=== PATIENT | male | born 1950 | race Caucasian/White ===

== ENCOUNTER → 2017-06-12 | Outpatient (CLI) | payer OTHER, MEDICARE | LOC: FIMAGING 17:44 | PROVIDERS: ATTEND Nurse Practitioner ==

== ENCOUNTER 2017-07-20 21:47 | Observation (INO) | payer OTHER, MEDICARE ==
--- NOTE | 2017-07-20 21:51 | EDPHY ---
H & P Source: Patient Exam Limitations: No limitations - Medical/Surgical History Other PMH: Past medical history: Colorectal cancer, hyperlipidemia, gastroesophageal reflux, BPH - Family History Significant Family History: No pertinent family hx Time Seen by Provider: 07/20/17 21:51 HPI/ROS: CHIEF COMPLAINT: Dyspnea, vomiting HISTORY OF PRESENT ILLNESS: The patient has a history of colorectal cancer, stage IIIB by their report, and presents to the ED with present since his chemotherapy on Friday. Additionally, the patient has developed nausea and vomiting. He has been unable to eat or drink significantly over the past several days. There has been no history of fever. The patient did receive Neulasta on Friday. He has had 4 days of hiccups. The patient denies asymmetric calf pain or swelling. He has no history of thromboembolic disease. He is not anticoagulated. The patient reports his dyspnea is moderate in nature. REVIEW OF SYSTEMS: A comprehensive 10 point review of systems is otherwise negative aside from elements mentioned in the history of present illness. (Rafael Zimmer) - Physical Exam Exam: General Appearance: Elderly male, mild tachypnea Eyes: Pupils equal and round no pallor or injection ENT, Mouth: Dry mucous membranes Respiratory: There are no retractions, lungs are clear to auscultation Cardiovascular: Slight tachycardia Gastrointestinal: Mild tenderness to palpation in the left mid quadrant Neurological: A&O, normal motor function, normal sensory exam, normal cranial nerves Skin: Warm and dry, no rashes Musculoskeletal: Neck is supple nontender Extremities: symmetrical, full range of motion (Rafael Zimmer) Constitutional: Initial Vital Signs Temperature (C) 36.3 C 07/20/17 21:51 Heart Rate 113 H 07/20/17 21:51 Respiratory Rate 20 07/20/17 21:51 Blood Pressure 89/74 L 07/20/17 21:51 O2 Sat (%) 96 07/20/17 21:51 O2 Delivery Mode Nasal Cannula O2 (L/minute) 2 Allergies/Adverse Reactions: No Known Allergies Allergy (Unverified 07/20/17 21:49) Home Medications: Medication Instructions Recorded Atorvastatin Calcium 07/20/17 Flomax 07/20/17 Neulasta 07/20/17 Zofran 07/20/17 morphINE IR 07/20/17 Medical Decision Making - Diagnostics EKG Interpretation: EKG: Complete interpretation has been separately recorded in the [email or web address] archive. Summary impression: Sinus rhythm, rate 95 (Rafael Zimmer) Imaging Results: Imaging Impressions Chest X-Ray 07/20/17 22:08 Impression: No evidence for acute cardiopulmonary abnormality. Abdomen CT 07/20/17 22:48 Impression: Minimal free fluid in the abdomen and pelvis. Moderate constipation. No evidence for small bowel obstruction. Results called and discussed with Dr. Robert Wing at 07/20/2017 23:41. Chest/Thorax CTA 07/20/17 22:48 Impression: 1. No evidence of thrombopulmonary embolic disease. 2. Evidence of atherosclerotic disease coronary arteries. 3. Mild apical pleural scarring bilateral. Results called and discussed with Dr. Robert Wing at 07/20/2017 23:38. ED Course/Re-evaluation: The patient presents to the ED with abdominal pain, vomiting and dyspnea. The patient's chest x-ray demonstrates no evidence of acute disease. The patient's EKG demonstrates no evidence of arrhythmia. The patient's proBNP level is normal. Will undergo a CT scan of the abdomen pelvis and CT pulmonary angiogram for evaluation of his symptoms. The patient did receive IV fluids and normal saline in the emergency department. Patient will be turned over to Dr. Wing at 11:[address] studies. (Rafael Zimmer) 2335: Patient was signed over to me at 11:00 p.m. shift change. I did go and see and evaluate the patient is resting comfortably. He does complain of nausea but declined any further nausea medicine. He does tell me that his abdomen is distended. He to additionally tells me that he has had a 40 lb weight loss since November. Recently he has been unable to tolerate p.o.. Having worsening nausea vomiting abdominal distention, bloating, and additionally feels short of breath. Here in the emergency room he does appear uncomfortable however nontoxic. His lungs are clear on exam. Abdomen mild tenderness left upper quadrant. I did review his CT scans this CT angiogram of his chest called to me by Dr. Bernardo does not show any infiltrate or pulmonary embolism. Additionally the CT scan of his abdomen pelvis shows trace free fluid in the abdomen, however no small-bowel obstruction, there is constipation present. No free air. No acute inflammatory process visualized on CT. 2335: I did re-evaluate the patient he remains feeling uncomfortable with ongoing nausea. I feel this patient be benefit from hospital admission for nausea control IV fluids, bowel rest an oncology consult. Patient is agreeable for this plan. 2349: Spoke with Dr. Christensen, who agrees to admit this patient to the hospital. (Robert Wing) Differential Diagnosis: Differential diagnosis considered includes bowel perforation, obstruction, pulmonary embolism, arrhythmia, congestive heart failure, metabolic abnormality , renal failure (Rafael Zimmer) - Data Points Laboratory Results: Laboratory Results 07/20/17 22:20 07/20/17 22:20 07/20/17 07/20/17 07/20/17 22:20 22:20 22:20 WBC 21.90 10^3/uL H 10^3/uL (3.80-9.50) RBC 3.85 10^6/uL L 10^6/uL (4.40-6.38) Hgb 12.0 g/dL L g/dL (13.7-17.5) Hct 35.9 % L % (40.0-51.0) MCV 93.2 fL fL (81.5-99.8) MCH 31.2 pg pg (27.9-34.1) MCHC 33.4 g/dL g/dL (32.4-36.7) RDW 15.8 % H % (11.5-15.2) Plt Count 398 10^3/uL 10^3/uL (150-400) MPV 10.3 fL fL (8.7-11.7) Neut % (Auto) Not Reported Lymph % (Auto) Not Reported [place] % (Auto) Not Reported Eos % (Auto) Not Reported Baso % (Auto) Not Reported Nucleat RBC Rel Count 0.0 % % (0.0-0.2) Absolute Neuts (auto) Not Reported Absolute Lymphs (auto) Not Reported Absolute Monos (auto) Not Reported Absolute Eos (auto) Not Reported Absolute Basos (auto) Not Reported Absolute Nucleated RBC 0.00 10^3/uL 10^3/uL (0-0.01) Immature Gran % Not Reported Seg Neutrophils % 82 % % Band Neutrophils % 5 % % Lymphocytes % 7 % % Monocytes % 4 % % Eosinophils % 1 % % Basophils % 1 % % Immature Gran # Not Reported Absolute Seg Neuts 17.96 10^/uL H 10^/uL (1.70-6.50) Absolute Band Neuts 1.10 10^3/uL H 10^3/uL (0.00-0.70) Absolute Lymphocytes 1.53 10^3/uL 10^3/uL (1.00-3.00) Absolute Monocytes 0.88 10^3/uL H 10^3/uL (0.30-0.80) Absolute Eosinophils 0.22 10^3/uL 10^3/uL (0.03-0.40) Absolute Basophils 0.22 10^3/uL H 10^3/uL (0.02-0.10) RBC/WBC/PLT Morphology NORMAL (NORMAL) Toxic Granulation PRESENT H Dohle Bodies PRESENT H Platelet Estimate ADEQUATE (ADEQ) VBG Lactic Acid 1.6 mmol/L mmol/L (0.7-2.1) Sodium 137 mEq/L mEq/L (134-144) Potassium 4.3 mEq/L mEq/L (3.5-5.2) Chloride 100 mEq/L mEq/L (97-110) Carbon Dioxide 22 mEq/l mEq/l (22-31) Anion Gap 15 mEq/L mEq/L (8-16) BUN 27 mg/dL H mg/dL (7-23) Creatinine 1.2 mg/dL mg/dL (0.7-1.3) Estimated GFR > 60 Glucose 115 mg/dL H mg/dL (70-100) Calcium 9.2 mg/dL mg/dL (8.5-10.4) Troponin I < 0.012 ng/mL ng/mL (0.000-0.034) NT-Pro-B Natriuret Pep 183 pg/mL H pg/mL (0-125) Medications Given: Discontinued Medications Sodium Chloride (Ns) 500 mls @ 1,000 mls/hr IV EDNOW ONE PRN Reason: Protocol Stop: 07/20/17 22:36 Last Admin: 07/20/17 22:23 Dose: 500 mls Departure - Departure Disposition: [facility] Acute Clinical Impression: Shortness of breath, Generalized weakness Nausea and vomiting Qualifiers: Vomiting type: unspecified Vomiting Intractability: non-intractable Qualified Code(s): R11.2 - Nausea with vomiting, unspecified Condition: Fair Referrals: Shae Noguera MD [Medical Doctor] - As per Instructions
[2017-07-20] MEDS ORDERED: NS 500 ML IV ONE (22:07)
--- NOTE | 2017-07-20 22:32 | CPEKG ---
Heart Rate: 95 RR Interval: 632 P-R Interval: 120 QRSD Interval: 98 QT Interval: 384 QTC Interval: 483 P Furman: -22 QRS Furman: 19 T Wave Furman: 46 EKG Severity - BORDERLINE ECG - EKG Impression: SINUS RHYTHM EKG Impression: BORDERLINE PROLONGED QT INTERVAL Electronically Signed By: Rafael Zimmer 20-Jul-2017 22:44:29
[2017-07-20 22:35] LABS: ADD DIFF? YES; ADD MORPH? NO; ATYPICAL LYMPHOCYTE FLAG 0 (0-99); FRAGMENT RBC FLAG 0 (0-99); HEMATOCRIT 35.9 % (40.0-51.0); LIPEMIA HEMOLYSIS FLAG 80 (0-99); MEAN CELL HEMOGLOBIN 31.2 pg (27.9-34.1); MEAN CELL HEMOGLOBIN CONCENTR. 33.4 g/dL (32.4-36.7); MEAN CELL VOLUME 93.2 fL (81.5-99.8); MEAN PLATELET VOLUME 10.3 fL (8.7-11.7); PLATELET CLUMPS FLAG 0 (0-99); PLATELET COUNT 398 10^3/uL (150-400); RED BLOOD CELL COUNT 3.85 10^6/uL (4.40-6.38); RED CELL DISTRIBUTION WIDTH 15.8 % (11.5-15.2)
[2017-07-20 22:46] LABS: ANION GAP 15 mEq/L (8-16); CALCIUM 9.2 mg/dL (8.5-10.4); CARBON DIOXIDE 22 mEq/l (22-31); CHLORIDE 100 mEq/L (97-110); CREATININE 1.2 mg/dL (0.7-1.3); GLOMERULAR FILTRATION RATE > 60; GLUCOSE 115 mg/dL (70-100); POTASSIUM 4.3 mEq/L (3.5-5.2); SODIUM 137 mEq/L (134-144)
[2017-07-20 22:51] LABS: ADD SCAN? NO; LEFT SHIFT FLG 300 (0-99)
[2017-07-20] MEDS ORDERED: IOPAMIDOL (ISOVUE 370) 100 ML BTL IV ONE (22:53)
[2017-07-20 22:57] LABS: TROPONIN I < 0.012 ng/mL (0.000-0.034)
[2017-07-20 23:23] LABS: PLATELET ESTIMATE ADEQUATE (ADEQ); TOXIC GRANULATION PRESENT
[2017-07-20] MEDS ORDERED: NS 1,000 ML IV ONE (23:50)
[2017-07-21] MEDS ORDERED: PROMETHAZINE HCL 25 MG/ML INJ IVP PRN (00:27)
[2017-07-21] MEDS ORDERED: oxyCODONE IR 5 MG TAB PO PRN (00:27)
[2017-07-21] MEDS ORDERED: ONDANSETRON DISINTEGRATING 4 MG TAB PO PRN (00:27)
[2017-07-21] MEDS ORDERED: NS 1,000 ML IV ONE (00:27)
[2017-07-21] MEDS ORDERED: ACETAMINOPHEN 325 MG TAB PO PRN (00:27)
--- NOTE | 2017-07-21 00:39 | PDGENHP ---
History and Physical - Chief Complaint Nauea, dyspnea - History of Present Illness 67 yo M with Stage IIIb colon cancer presents with nausea and dyspnea. Patient has been receiving q2wk chemotherapy with last session on Friday prior to admission. He has been receiving this treatment regimen since November (patient and do not remember drug names) with severe side-effects since. Side- effects include nausea, vomiting w/ prominent mucus, and associated weight loss : approximately 40 lbs over the last 6 months. Over the last few days, he has been experiencing nausea, intolerance of PO, and dyspnea on exertion. These symptoms are similar to prior but more severe. Vital signs unremarkable on arrival aside from mild tachycardia. History Information - Allergies/Home Medication List Allergies/Adverse Reactions: No Known Allergies Allergy (Unverified 07/20/17 21:49) Home Medications: Atorvastatin Calcium 07/20/17 [Last Taken Unknown] Flomax 07/20/17 [Last Taken Unknown] Neulasta 07/20/17 [Last Taken Unknown] Zofran 07/20/17 [Last Taken Unknown] morphINE IR 07/20/17 [Last Taken Unknown] I have personally reviewed and updated: family history, medical history - Past Medical History cancer - Surgical History Reports: no pertinent surgical hx - Family History Additional family history: Alzheimer's dementia. TB - Social History Smoking Status: Former smoker Alcohol Use: None Drug Use: None Review of Systems ROS: 10pt was reviewed & negative except for what was stated in HPI & below Physical Exam Temp Pulse Resp BP Pulse Ox 36.3 C 93 15 123/87 H 100 07/20/17 21:51 07/21/17 00:28 07/21/17 00:28 07/21/17 00:28 07/21/17 00:28 O2 (L/minute) 2 Constitutional: chronically ill appearing, uncomfortable Eyes: PERRL, EOMI Ears, Nose, Mouth, Throat: moist mucous membranes, no oral mucosal ulcers Cardiovascular: no murmur, rub, or gallop, tachycardia Respiratory: no respiratory distress, clear to auscultation Gastrointestinal: normoactive bowel sounds, soft, non-tender abdomen Skin: warm, no rashes or abrasions Neurologic: AAOx3, CN II-XII Intact Psychiatric: interacting appropriately, not anxious Lab Data & Imaging Review 07/20/17 22:20 07/20/17 22:20 WBC 21.90 10^3/uL (3.80-9.50) H 07/20/17 22:20 RBC 3.85 10^6/uL (4.40-6.38) L 07/20/17 22:20 Hgb 12.0 g/dL (13.7-17.5) L 07/20/17 22:20 Hct 35.9 % (40.0-51.0) L 07/20/17 22:20 MCV 93.2 fL (81.5-99.8) 07/20/17 22:20 MCH 31.2 pg (27.9-34.1) 07/20/17 22:20 MCHC 33.4 g/dL (32.4-36.7) 07/20/17 22:20 RDW 15.8 % (11.5-15.2) H 07/20/17 22:20 Plt Count 398 10^3/uL (150-400) 07/20/17 22:20 MPV 10.3 fL (8.7-11.7) 07/20/17 22:20 Neut % (Auto) Not Reported 07/20/17 22:20 Lymph % (Auto) Not Reported 07/20/17 22:20 [place] % (Auto) Not Reported 07/20/17 22:20 Eos % (Auto) Not Reported 07/20/17 22:20 Baso % (Auto) Not Reported 07/20/17 22:20 Nucleat RBC Rel Count 0.0 % (0.0-0.2) 07/20/17 22:20 Absolute Neuts (auto) Not Reported 07/20/17 22:20 Absolute Lymphs (auto) Not Reported 07/20/17 22:20 Absolute Monos (auto) Not Reported 07/20/17 22:20 Absolute Eos (auto) Not Reported 07/20/17 22:20 Absolute Basos (auto) Not Reported 07/20/17 22:20 Absolute Nucleated RBC 0.00 10^3/uL (0-0.01) 07/20/17 22:20 Immature Gran % Not Reported 07/20/17 22:20 Seg Neutrophils % 82 % 07/20/17 22:20 Band Neutrophils % 5 % 07/20/17 22:20 Lymphocytes % 7 % 07/20/17 22:20 Monocytes % 4 % 07/20/17 22:20 Eosinophils % 1 % 07/20/17 22:20 Basophils % 1 % 07/20/17 22:20 Immature Gran # Not Reported 07/20/17 22:20 Absolute Seg Neuts 17.96 10^/uL (1.70-6.50) H 07/20/17 22:20 Absolute Band Neuts 1.10 10^3/uL (0.00-0.70) H 07/20/17 22:20 Absolute Lymphocytes 1.53 10^3/uL (1.00-3.00) 07/20/17 22:20 Absolute Monocytes 0.88 10^3/uL (0.30-0.80) H 07/20/17 22:20 Absolute Eosinophils 0.22 10^3/uL (0.03-0.40) 07/20/17 22:20 Absolute Basophils 0.22 10^3/uL (0.02-0.10) H 07/20/17 22:20 RBC/WBC/PLT Morphology NORMAL (NORMAL) 07/20/17 22:20 Toxic Granulation PRESENT H 07/20/17 22:20 Dohle Bodies PRESENT H 07/20/17 22:20 Platelet Estimate ADEQUATE (ADEQ) 07/20/17 22:20 VBG Lactic Acid 1.6 mmol/L (0.7-2.1) 07/20/17 22:20 Sodium 137 mEq/L (134-144) 07/20/17 22:20 Potassium 4.3 mEq/L (3.5-5.2) 07/20/17 22:20 Chloride 100 mEq/L (97-110) 07/20/17 22:20 Carbon Dioxide 22 mEq/l (22-31) 07/20/17 22:20 Anion Gap 15 mEq/L (8-16) 07/20/17 22:20 BUN 27 mg/dL (7-23) H 07/20/17 22:20 Creatinine 1.2 mg/dL (0.7-1.3) 07/20/17 22:20 Estimated GFR > 60 07/20/17 22:20 Glucose 115 mg/dL (70-100) H 07/20/17 22:20 Calcium 9.2 mg/dL (8.5-10.4) 07/20/17 22:20 Troponin I < 0.012 ng/mL (0.000-0.034) 07/20/17 22:20 NT-Pro-B Natriuret Pep 183 pg/mL (0-125) H 07/20/17 22:20 Imaging Review: CT angio chest without infiltrate or PE. CT abdomen without significant acute abnormality. Visualized and Interpreted EKG results: Yes EKG Interpretation: Positive for: normal sinsus rhythm Assessment & Plan Assessment: 67 yo M with metastatic colon CA presents with nausea, vomiting, and OTOOLE likely due to chemotherapy side-effects in the setting of progressive deconditioning and malnutrition. Plan: 1. Nausea, vomiting - Most likely chemotherapy side-effects noting symptoms have been present since November and are temporally related to q2wk treatments. CT abdomen performed on admission without acute abnormality. Symptoms may be worsened by significant constipation brought on by opiate therapy. - IVF - Schedule Zofran q6h; ECG in AM for QTc monitoring - Phenergan and dexamethasone PRN - Continue PPI - Bowel regimen 2. Dyspnea - Patient subjectively dyspneic with minimal exertion. CT angiogram on admission without infiltrate or PE. He is oxygenating well on room air. Most likely this is related to deconditioning and dehydration. However, difficult to exclude myriad of chemotherapy side-effects (cardiac/pulmonary toxicities). - Conservative treatment for now noting normal CT and normoxia - Monitor closely, consider TTE if persistent 3. Severe protein calorie malnutrition - With ~40 lb weight loss over last 6 months. Dietary consult placed. 4. Metastatic colon CA - Receiving q2wk chemotherapy regimen with significant ASE's as noted above. Will consult oncology service. 5. BPH - On Flomax as outpatient Diet - Regular if tolerated, will let patient choose Code - FC/FT per conversation with patient and PPx - LMWH Dispo - Admit to observation for symptom control and oncology, dietary consultation
[2017-07-21 00:54] VITALS: RESP 16
[2017-07-21] MEDS: ONDANSETRON 4 MG/2 ML VIAL IVP SCH ×2 (01:38→05:30)
[2017-07-21 04:33] LABS: % IMMATURE GRANULYOCYTES 1.2 % (0.0-1.1); ABSOLUTE IMMATURE GRANULOCYTES 0.18 10^3/uL (0.00-0.10); ADD DIFF? NO; ADD MORPH? NO; ADD SCAN? YES; ATYPICAL LYMPHOCYTE FLAG 0 (0-99); FRAGMENT RBC FLAG 0 (0-99); HEMATOCRIT 31.8 % (40.0-51.0); HEMOGLOBIN 10.1 g/dL (13.7-17.5); LIPEMIA HEMOLYSIS FLAG 80 (0-99); MEAN CELL HEMOGLOBIN 30.7 pg (27.9-34.1); MEAN CELL HEMOGLOBIN CONCENTR. 31.8 g/dL (32.4-36.7); MEAN CELL VOLUME 96.7 fL (81.5-99.8); MEAN PLATELET VOLUME 10.4 fL (8.7-11.7); PLATELET CLUMPS FLAG 0 (0-99); PLATELET COUNT 325 10^3/uL (150-400); RED BLOOD CELL COUNT 3.29 10^6/uL (4.40-6.38); RED CELL DISTRIBUTION WIDTH 15.9 % (11.5-15.2)
[2017-07-21 04:36] LABS: LEFT SHIFT FLG 300 (0-99)
[2017-07-21 04:56] LABS: SCAN POSITIVE
[2017-07-21 05:02] LABS: ANION GAP 10 mEq/L (8-16); CALCIUM 8.3 mg/dL (8.5-10.4); CARBON DIOXIDE 22 mEq/l (22-31); CHLORIDE 106 mEq/L (97-110); CREATININE 1.1 mg/dL (0.7-1.3); GLOMERULAR FILTRATION RATE > 60; GLUCOSE 91 mg/dL (70-100); POTASSIUM 4.5 mEq/L (3.5-5.2); SODIUM 138 mEq/L (134-144)
[2017-07-21 05:06] LABS: PLATELET ESTIMATE ADEQUATE (ADEQ); TOXIC GRANULATION PRESENT
[2017-07-21] MEDS: DEXAMETHASONE 4 MG TAB PO SCH ×2 (05:30→11:26)
[2017-07-21] MEDS ORDERED: ENOXAPARIN 40 MG/0.4 ML SYR SC SCH (09:00)
[2017-07-21 09:10] VITALS: BP 131/79; PULSE 97; TEMP 97.6; O2SAT 97
[2017-07-21] MEDS: SENNOSIDES/DOCUSATE SODIUM TAB PO SCH ×2 (10:49→11:26)
--- NOTE | 2017-07-21 12:44 | GHP ---
[f rep st] HISTORY AND PHYSICAL DATE OF ADMISSION: 07/20/2017 OUTPATIENT ONCOLOGIST: Shae Noguera MD REASON FOR CONSULTATION: Nausea and diarrhea. HISTORY OF PRESENT ILLNESS: The patient is a 67-year-old man with metastatic colorectal cancer. He was initially diagnosed in 2009 when he presented with stage IIIB disease. He underwent surgery fo llowed by 6 months of adjuvant FOLFOX chemotherapy. This was done at [facility] in [facility]. In March 2016, he had a recurrence in an abdominal lymph node, which was resected. In J an2016, he unfortunately developed peritoneal liver metastases and was started on FOLFIRI and A vastin. He is in the process of moving to [place] to live near his daughter, and he has been follow ed closely by Dr. Noguera since February. He is the UGT1A1 heterozygous polymorphism, which makes him mo re sensitive to the side effects of irinotecan and therefore, the doses have been lowered. Neverthe less, he has had significant problems with diarrhea, nausea, and mucus production. He has lost abou t 16 pounds over the past 4 months, though his says over a longer period of time, the weight lo ss has been closer to 30 pounds. Last night, he called me complaining of mucus production and also shortness of breath, and he was notably dyspneic on the phone. He came to the emergency department. A CT angiogram was negative for abnormal process. His BNP was essentially normal. His descr ibes a high level of anxiety since the diagnosis of recurrent cancer. He feels somewhat better afte r IV hydration, but he had a very large bowel movement this morning followed by diarrhea and is havi ng some discomfort because of that. PAST MEDICAL HISTORY: Otherwise unremarkable. MEDICATIONS: Morphine 1-2 mg IV as needed for pain. Lovenox 40 mg subcutaneously daily. Dexametha sone 4 mg p.o. q.6 hours. ALLERGIES: He has no known drug allergies. FAMILY HISTORY: Noncontributory. SOCIAL HISTORY: Nonsmoker, nondrinker. Lives with his and daughter. REVIEW OF SYSTEMS: Other than pertinent positives noted in the HPI, 14-point review of systems is n egative. PHYSICAL EXAMINATION: VITAL SIGNS: Temperature 36.4, blood pressure 131/79, heart rate 69, ox satu ration 97% on room air. GENERAL: He was in no acute distress. HEENT: Sclerae anicteric. Orophar ynx clear. NECK: Supple. No lymphadenopathy. LUNGS: Clear auscultation bilaterally. CARDIAC: Regular rate and rhythm. No murmurs, gallops, rubs. ABDOMEN: Normoactive bowel sounds. Nontender . EXTREMITIES: Without edema, 2+ pulses. LABORATORY DATA: White count 15.3, hemoglobin 10.1, platelets of 325. Sodium 138, potassium 4.5, c hloride 106, bicarb 22, BUN 23, creatinine 1.1. IMPRESSION: This is a 67-year-old man with metastatic colorectal cancer. Based on his most recent CT scan, there is a fairly minimal burden of residual disease. He has been on FOLFIRI and Avastin s julietanovember. The side effects, particularly GI, seem to be getting worse. The cause of the dyspne a is likely anxiety or panic attacks, as imaging and laboratory testing were negative for congestive heart failure, pulmonary embolism, or pneumonia. RECOMMENDATIONS: 1. Continue symptomatic management. I would stop his morphine and other bowel motility agents give n that he is alternating between constipation and diarrhea. 2. I recommended that he speak to Dr. Noguera at his next visit about potentially taking a break from chemotherapy or least eliminating the irinotecan from his regimen, which is likely responsible for the bulk of his symptoms. 3. May also benefit from meeting with a psychotherapist and possibly considering medication for anx iety, which seems to be a major problem for him. Thank you for this consultation. It was pleasure to meet this patient. I appreciate the opportunity to be involved in his care. We will continue to follow patient with you while he is in the [facility]. /[id number]/MODL
--- NOTE | 2017-07-21 14:50 | ASDISCHSUM ---
Discharge Information Plan Status:Home with No Needs Medically Cleared to Leave: Discharge Date:07/21/2017 01:40 PM CM D/C Disposition:Home, Routine, Self-Care ADT D/C Disposition:Home, Routine, Self-Care Projected Discharge Date:07/21/2017 01:40 PM Transportation at D/C:Family Discharge Delay Reason: Follow-Up Date:07/21/2017 01:40 PM Discharge Slot: Final Diagnosis: Placement Information Patient Contact Information Contact Name:VINICIUS Relationship: Address:[address] Work Phone: [facility]:[place] Alternate Phone: [facility]/Zip Code:[place] [address] Email: Financial Information Financial Class:MC Primary Plan Desc:MEDICARE INPATIENT Primary Plan Number:[id number] Secondary Plan Desc:[employer]/MDR SUPPLEMENT Secondary Plan Number:[id number] Assessment Information Intervention Information
--- NOTE | 2017-07-21 15:30 | GDS ---
[f rep st] DISCHARGE SUMMARY DISCHARGE DIAGNOSES: 1. Nausea vomiting, thought chemotherapy related. 2. Dyspnea. 3. Severe protein-calorie malnutrition. 4. Metastatic colon cancer. 5. Benign prostatic hypertrophy. HISTORY OF PRESENT ILLNESS: A 67-year-old male with a history of metastatic colon cancer presenting with nausea, vomiting and dyspnea. For details of the patient's initial presentation, please see t he history and physical dated 07/20/2017. Consultative services include Oncology. PROCEDURES: 07/20/2007, patient had a CTA of the chest that was negative for any pulmonary embolic disease. Additionally, no pneumonia or edema is appreciated. On 07/20/2017, patient had a CT of th e abdomen that showed minimal free fluid in the abdomen, moderate constipation. No evidence of obst ruction. HOSPITAL COURSE: By issue: 1. Acute nausea and vomiting were thought to be chemotherapy related. Patient received conservative therapy with IV hydration and IV antiemetics with resolution of his symptoms. We are encouraging s cheduled antiemetics for the next week or so, even prior to meals to assist with improved p.o. intak e. The patient had very rapid response to supportive care and is able to tolerate food morning afte r presentation, which is sooner than expected resolution of his symptoms. 2. Dyspnea. Patient was ruled out for any underlying pulmonary process. With hydration and support ileana care alone, his dyspnea has resolved. 3. Severe protein-calorie malnutrition. It sounds as if the patient is really limiting his oral in take secondary to sensation of nausea when food hits his esophagus. Did discuss empirically using s cheduled Zofran before meals. Wonder if a gastroenterology consultation outpatient would be appropr iate if improved control is not obtainable to simply visualize the patient's esophagus and verify th ere are no motility disorders underlying his inability to tolerate food. 4. Suspected depression. Patient seems very low on my examination. I think it should be considere d starting an antidepressant for him in the outpatient setting. We will defer that management to Dr Wilfrido Noguera, his primary oncologist. MEDICATIONS AT THE TIME OF DISPOSITION: Please reference med rec printed on 07/21/2017. FOLLOWUP APPOINTMENTS: Dr. Noguera for ongoing management of his chemotherapy regimen, side affects a nd depression. PENDING STUDIES: At the time of this dictation are none. I spent greater than 30 minutes in the planning and coordination of this discharge. /[id number]/MODL
[2017-07-22] MEDS ORDERED: ATORVASTATIN CALCIUM 40 MG TAB PO SCH (09:00)
[2017-07-22] MEDS ORDERED: PANTOPRAZOLE SODIUM 40 MG TAB PO SCH (09:00)
[2017-07-22] MEDS ORDERED: TAMSULOSIN HCL 0.4 MG CAP PO SCH (09:00)
== END 2017-07-21 13:40 | disposition home or self-care (01) ==
LOC: INTOOBSV 23:49 → F1N 07-21 00:36
PROVIDERS: ADMIT Student in an Organized Health Care Education/Training Program; ATTEND Student in an Organized Health Care Education/Training Program
DX: R11.2 Nausea with vomiting, unspecified (principal); C18.9 Malignant neoplasm of colon, unspecified; R06.00 Dyspnea, unspecified; E43 Unspecified severe protein-calorie malnutrition; Z79.899 Other long term (current) drug therapy
CPT/HCPCS: 71010; 71275; 74177; 93005; G0378; J1650; J2405; J2550; Q9967

== ENCOUNTER 2017-10-14 10:37 | Inpatient (IN) | payer OTHER, MEDICARE ==
[2017-10-14] MEDS ORDERED: ONDANSETRON 4 MG/2 ML VIAL ONE (11:04)
[2017-10-14] MEDS ORDERED: ONDANSETRON 4 MG/2 ML VIAL IVP ONE (11:06)
[2017-10-14] MEDS ORDERED: NS 1,000 ML IV ONE ×2 (11:13→12:11)
--- NOTE | 2017-10-14 11:17 | EDPHY ---
H & P Stated Complaint: chemo last week for colon cancer/n/v sob Time Seen by Provider: 10/14/17 10:46 HPI/ROS: CHIEF COMPLAINT: Globus sensation, dehydration HISTORY OF PRESENT ILLNESS: The patient presents to the ED with an intermittent globus sensation over the past week. The patient is currently receiving chemotherapy for treatment of IIIb colon cancer. The patient reportedly has had intractable nausea and vomiting this week. He has been unable to keep any fluids down according to his . Today the patient had a severe globus sensation with sensation of severe air hunger. That has resolved. The patient denies any active chest pain currently. He does complain of global weakness secondary to perceived dehydration. He is currently receiving chemotherapy. REVIEW OF SYSTEMS: A comprehensive 10 point review of systems is otherwise negative aside from elements mentioned in the history of present illness. Source: Patient Exam Limitations: No limitations - Personal History Current Tetanus/Diphtheria Vaccine: Yes - Medical/Surgical History Hx Asthma: No Hx Chronic Respiratory Disease: No Hx Diabetes: No Hx Cardiac Disease: No Hx Renal Disease: No Hx Cirrhosis: No Hx Alcoholism: No Hx HIV/AIDS: No Hx Splenectomy or Spleen Trauma: No Other PMH: Past medical history: Colorectal cancer, hyperlipidemia, gastroesophageal reflux, BPH - Social History Smoking Status: Former smoker - Physical Exam Exam: General Appearance: Alert, no distress Eyes: Pupils equal and round no pallor or injection ENT, Mouth: Dry mucous membranes, no evidence of thrush Respiratory: There are no retractions, lungs are clear to auscultation, port on chest wall Cardiovascular: Regular rate and rhythm Gastrointestinal: Abdomen is soft and nontender, no masses, bowel sounds normal Neurological: A&O, normal motor function, normal sensory exam, normal cranial nerves Skin: Warm and dry, no rashes Musculoskeletal: Neck is supple nontender Extremities: symmetrical, full range of motion Constitutional: Initial Vital Signs Temperature (C) 36.3 C 10/14/17 10:40 Heart Rate 97 10/14/17 10:40 Respiratory Rate 20 10/14/17 10:40 Blood Pressure 153/98 H 10/14/17 10:40 O2 Sat (%) 93 10/14/17 10:40 O2 Delivery Mode Room Air Allergies/Adverse Reactions: No Known Allergies Allergy (Verified 10/14/17 10:38) Home Medications: Medication Instructions Recorded Atorvastatin Calcium [Lipitor 40 40 mg PO DAILY 07/20/17 mg (*)] Tamsulosin HCl [Flomax 0.4 MG (*)] 0.4 mg PO DAILY 07/20/17 Ondansetron HCl [Zofran] 4 mg PO Q6 PRN #45 tablet 07/21/17 Pantoprazole Sodium [Protonix 40mg 40 mg PO DAILY 07/21/17 (*)] DEXAMETHASONE 10/14/17 LORAZEPAM 10/14/17 Prochlorperazine Maleate 10/14/17 morphINE 10/14/17 Medical Decision Making - Diagnostics EKG Interpretation: EKG: Complete interpretation has been separately recorded in the [facility] archive. Summary impression: Sinus rhythm, incomplete right bundle branch block. Unchanged from prior EKG Imaging Results: Imaging Impressions Chest X-Ray 10/14/17 11:13 Impression: No acute abnormality, or substantial change from 07/20/2017. ED Course/Re-evaluation: The patient presents to the ED with symptoms of dehydration and a globus sensation. The patient is not febrile or neutropenic. The patient is clinically dehydrated. He received 2 L of normal saline. His EKG demonstrates no evidence of arrhythmia or ischemic changes. Patient received 4 mg of IV Zofran. I reviewed the patient's past medical records. The patient was placed on a vehicle monitor technician without evidence of arrhythmia in the ED. He underwent serial examinations by myself over a 2 hour period. The patient clinically is quite dehydrated. He feels weak and global ED condition and does not feel strong enough to go home. I do feel it would be reasonable to admit him for IV fluid hydration this evening. Consultation was made with the hospitalist service. The patient will be admitted by Dr. Candelaria. Differential Diagnosis: Differential diagnosis considered includes esophageal foreign body, pneumonia, aspiration, arrhythmia - Data Points Laboratory Results: Laboratory Results 10/14/17 11:00 10/14/17 11:00 10/14/17 10/14/17 11:00 11:00 WBC 14.08 10^3/uL H 10^3/uL (3.80-9.50) RBC 4.75 10^6/uL 10^6/uL (4.40-6.38) Hgb 13.5 g/dL L g/dL (13.7-17.5) Hct 41.6 % % (40.0-51.0) MCV 87.6 fL fL (81.5-99.8) MCH 28.4 pg pg (27.9-34.1) MCHC 32.5 g/dL g/dL (32.4-36.7) RDW 19.9 % H % (11.5-15.2) Plt Count 269 10^3/uL 10^3/uL (150-400) MPV 9.9 fL fL (8.7-11.7) Neut % (Auto) Not Reported Lymph % (Auto) Not Reported [place] % (Auto) Not Reported Eos % (Auto) Not Reported Baso % (Auto) Not Reported Nucleat RBC Rel Count 0.0 % % (0.0-0.2) Absolute Neuts (auto) Not Reported Absolute Lymphs (auto) Not Reported Absolute Monos (auto) Not Reported Absolute Eos (auto) Not Reported Absolute Basos (auto) Not Reported Absolute Nucleated RBC 0.00 10^3/uL 10^3/uL (0-0.01) Immature Gran % Not Reported Seg Neutrophils % 78 % % Band Neutrophils % 9 % % Lymphocytes % 9 % % Monocytes % 4 % % Immature Gran # Not Reported Absolute Seg Neuts 10.98 10^/uL H 10^/uL (1.70-6.50) Absolute Band Neuts 1.27 10^3/uL H 10^3/uL (0.00-0.70) Absolute Lymphocytes 1.27 10^3/uL 10^3/uL (1.00-3.00) Absolute Monocytes 0.56 10^3/uL 10^3/uL (0.30-0.80) Platelet Estimate ADEQUATE (ADEQ) Sodium 138 mEq/L mEq/L (134-144) Potassium 3.5 mEq/L mEq/L (3.5-5.2) Chloride 100 mEq/L mEq/L (97-110) Carbon Dioxide 25 mEq/l mEq/l (22-31) Anion Gap 13 mEq/L mEq/L (8-16) BUN 21 mg/dL mg/dL (7-23) Creatinine 1.0 mg/dL mg/dL (0.7-1.3) Estimated GFR > 60 Glucose 113 mg/dL H mg/dL (70-100) Calcium 9.0 mg/dL mg/dL (8.5-10.4) Troponin I < 0.012 ng/mL ng/mL (0.000-0.034) Medications Given: Discontinued Medications Sodium Chloride (Ns) 1,000 mls @ 0 mls/hr IV EDNOW ONE; Wide Open PRN Reason: Protocol Stop: 10/14/17 11:14 Last Admin: 10/14/17 11:15 Dose: 1,000 mls Sodium Chloride (Ns) 1,000 mls @ 0 mls/hr IV EDNOW ONE; Wide Open PRN Reason: Protocol Stop: 10/14/17 12:12 Last Admin: 10/14/17 12:22 Dose: 1,000 mls Ondansetron HCl (Zofran) 4 mg IVP EDNOW ONE Stop: 10/14/17 11:07 Last Admin: 10/14/17 11:07 Dose: 4 mg Departure - Departure Disposition: [facility] Acute Clinical Impression: Dehydration, Colon cancer, Globus sensation Condition: Fair Referrals: NONE *PRIMARY CARE P,. [Primary Care Provider] - As per Instructions
[2017-10-14 11:21] LABS: ADD DIFF? YES; ADD MORPH? NO; ATYPICAL LYMPHOCYTE FLAG 0 (0-99); FRAGMENT RBC FLAG 20 (0-99); HEMATOCRIT 41.6 % (40.0-51.0); HEMOGLOBIN 13.5 g/dL (13.7-17.5); LIPEMIA HEMOLYSIS FLAG 80 (0-99); MEAN CELL HEMOGLOBIN 28.4 pg (27.9-34.1); MEAN CELL HEMOGLOBIN CONCENTR. 32.5 g/dL (32.4-36.7); MEAN CELL VOLUME 87.6 fL (81.5-99.8); MEAN PLATELET VOLUME 9.9 fL (8.7-11.7); PLATELET CLUMPS FLAG 0 (0-99); PLATELET COUNT 269 10^3/uL (150-400); RED BLOOD CELL COUNT 4.75 10^6/uL (4.40-6.38); RED CELL DISTRIBUTION WIDTH 19.9 % (11.5-15.2)
[2017-10-14 11:22] LABS: ADD SCAN? NO; LEFT SHIFT FLG 300 (0-99)
[2017-10-14 11:28] LABS: CARBON DIOXIDE 25 mEq/l (22-31); CHLORIDE 100 mEq/L (97-110); GLOMERULAR FILTRATION RATE > 60; GLUCOSE 113 mg/dL (70-100); SODIUM 138 mEq/L (134-144)
[2017-10-14 11:39] LABS: TROPONIN I < 0.012 ng/mL (0.000-0.034)
[2017-10-14 11:47] LABS: ANION GAP 13 mEq/L (8-16); POTASSIUM 3.5 mEq/L (3.5-5.2)
[2017-10-14 11:49] LABS: PLATELET ESTIMATE ADEQUATE (ADEQ)
--- NOTE | 2017-10-14 13:31 | CPEKG ---
Heart Rate: 84 RR Interval: 714 P-R Interval: 144 QRSD Interval: 98 QT Interval: 388 QTC Interval: 459 P [place]: 54 QRS [place]: 30 T Wave [place]: 46 EKG Severity - NORMAL ECG - EKG Impression: SINUS RHYTHM Electronically Signed By: Rafael Zimmer 14-Oct-2017 13:42:54
--- NOTE | 2017-10-14 14:18 | PDGENHP ---
History and Physical - Chief Complaint nausea and vomiting - History of Present Illness 67 y/o male with history of metastatic colorectal cancer s/p chemotherapy on presents with nausea/vomiting and diarrhea. He has been having trouble keeping anything down since this last cycle of treatment. Denies hematemesis. Vomitus is described as mucous. Reports right sided chest pain and some shortness breath which prompted his ED visit today. History Information - Allergies/Home Medication List Allergies/Adverse Reactions: No Known Allergies Allergy (Verified 10/14/17 10:38) Home Medications: Tamsulosin HCl [Flomax 0.4 MG (*)] 0.4 mg PO DAILY 07/20/17 [Last Taken 10/13/17 ] Pantoprazole Sodium [Protonix 40mg (*)] 40 mg PO DAILY 07/21/17 [Last Taken ] Atorvastatin Calcium [Lipitor 20 mg (*)] 20 mg PO DAILY18 10/14/17 [Last Taken 10/13/17] Dexamethasone [Decadron 4 MG (*)] 4 mg PO Q8HRS PRN 10/14/17 [Last Taken ] Herbals/Supplements -Info Only 1 ea PO DAILY 10/14/17 [Last Taken Unknown] LORazepam [Ativan (*)] 1 mg PO Q6-8PRN PRN 10/14/17 [Last Taken 1 Week Ago ~] Ondansetron HCl [Zofran] 4 mg PO Q8HRS PRN 10/14/17 [Last Taken 10/14/17] Prochlorperazine Maleate [Compazine 10mg (*)] 10 mg PO Q6HRS PRN 10/14/17 [Last Taken 10/13/17] morphINE [Roxanol Solution 20 mg/ml 30 ml] 0.25 - 0.5 ml PO Q3HRS PRN 10/14/17 [ Last Taken 10/13/17 0.4 ml] I have personally reviewed and updated: family history, medical history, social history, surgical history - Past Medical History cancer, GERD Additional medical history: BPH - Surgical History Reports: no pertinent surgical hx - Family History Additional family history: Alzheimer's dementia. TB - Social History Smoking Status: Former smoker Alcohol Use: None Drug Use: None Review of Systems Review of Systems: ROS: 10pt was reviewed & negative except for what was stated in HPI & below Constitutional: Reports: no symptoms, weight loss (10 lb since last cycle) Physical Exam Physical Exam: Temp Pulse Resp BP Pulse Ox 36.3 C 89 16 166/94 H 96 10/14/17 10:40 10/14/17 13:23 10/14/17 13:23 10/14/17 13:23 10/14/17 13:23 Constitutional: no apparent distress, appears nourished, not in pain Ears, Nose, Mouth, Throat: moist mucous membranes, hearing normal, ears appear normal, no oral mucosal ulcers Cardiovascular: regular rate and rhythym, no murmur, rub, or gallop, No edema Respiratory: no respiratory distress, no rales or rhonchi, clear to auscultation , other (no stridor), No expiratory wheeze Gastrointestinal: normoactive bowel sounds, soft, non-tender abdomen, no palpable masses, No guarding, No rebound Genitourinary: no bladder fullness, no bladder tenderness Skin: warm, normal color, no rashes or abrasions, no fluctuance, no induration, No mottled Musculoskeletal: full muscle strength, no muscle tenderness, normal joint ROM, no joint effusions Neurologic: AAOx3, CN II-XII Intact, No facial droop Psychiatric: interacting appropriately, not anxious, not encephalopathic, thought process linear Lab Data & Imaging Review 10/14/17 11:00 10/14/17 11:00 WBC 14.08 10^3/uL (3.80-9.50) H 10/14/17 11:00 RBC 4.75 10^6/uL (4.40-6.38) 10/14/17 11:00 Hgb 13.5 g/dL (13.7-17.5) L 10/14/17 11:00 Hct 41.6 % (40.0-51.0) 10/14/17 11:00 MCV 87.6 fL (81.5-99.8) 10/14/17 11:00 MCH 28.4 pg (27.9-34.1) 10/14/17 11:00 MCHC 32.5 g/dL (32.4-36.7) 10/14/17 11:00 RDW 19.9 % (11.5-15.2) H 10/14/17 11:00 Plt Count 269 10^3/uL (150-400) 10/14/17 11:00 MPV 9.9 fL (8.7-11.7) 10/14/17 11:00 Neut % (Auto) Not Reported 10/14/17 11:00 Lymph % (Auto) Not Reported 10/14/17 11:00 [place] % (Auto) Not Reported 10/14/17 11:00 Eos % (Auto) Not Reported 10/14/17 11:00 Baso % (Auto) Not Reported 10/14/17 11:00 Nucleat RBC Rel Count 0.0 % (0.0-0.2) 10/14/17 11:00 Absolute Neuts (auto) Not Reported 10/14/17 11:00 Absolute Lymphs (auto) Not Reported 10/14/17 11:00 Absolute Monos (auto) Not Reported 10/14/17 11:00 Absolute Eos (auto) Not Reported 10/14/17 11:00 Absolute Basos (auto) Not Reported 10/14/17 11:00 Absolute Nucleated RBC 0.00 10^3/uL (0-0.01) 10/14/17 11:00 Immature Gran % Not Reported 10/14/17 11:00 Seg Neutrophils % 78 % 10/14/17 11:00 Band Neutrophils % 9 % 10/14/17 11:00 Lymphocytes % 9 % 10/14/17 11:00 Monocytes % 4 % 10/14/17 11:00 Immature Gran # Not Reported 10/14/17 11:00 Absolute Seg Neuts 10.98 10^/uL (1.70-6.50) H 10/14/17 11:00 Absolute Band Neuts 1.27 10^3/uL (0.00-0.70) H 10/14/17 11:00 Absolute Lymphocytes 1.27 10^3/uL (1.00-3.00) 10/14/17 11:00 Absolute Monocytes 0.56 10^3/uL (0.30-0.80) 10/14/17 11:00 Platelet Estimate ADEQUATE (ADEQ) 10/14/17 11:00 Sodium 138 mEq/L (134-144) 10/14/17 11:00 Potassium 3.5 mEq/L (3.5-5.2) 10/14/17 11:00 Chloride 100 mEq/L (97-110) 10/14/17 11:00 Carbon Dioxide 25 mEq/l (22-31) 10/14/17 11:00 Anion Gap 13 mEq/L (8-16) 10/14/17 11:00 BUN 21 mg/dL (7-23) 10/14/17 11:00 Creatinine 1.0 mg/dL (0.7-1.3) 10/14/17 11:00 Estimated GFR > 60 10/14/17 11:00 Glucose 113 mg/dL (70-100) H 10/14/17 11:00 Calcium 9.0 mg/dL (8.5-10.4) 10/14/17 11:00 Troponin I < 0.012 ng/mL (0.000-0.034) 10/14/17 11:00 Visualized and Interpreted Chest x-ray results: Yes Chest X-Ray results: normal Visualized and Interpreted EKG results: Yes EKG Interpretation: Positive for: normal sinsus rhythm (84bpm). Negative for: ST elevation, ST depression Assessment & Plan Assessment: This is a 67-year-old male with history of metastatic colorectal cancer status post chemotherapy last week presenting with: # intractable nausea vomiting and hiccups likely chemotherapy related #Dehydration (Acute) #Colon cancer (Acute) #Suspected laryngospasm -monitor on pulse ox -ENT consult -BID PPI/H2 trial gi cocktail Disposition: The patient will be admitted hospital under inpatient status as I suspect he will require hospitalization for greater than 24 hours
[2017-10-14] MEDS ORDERED: ACETAMINOPHEN 325 MG TAB PO PRN (14:51)
[2017-10-14] MEDS ORDERED: MAG HYDROX/AL HYDROX/SIMETH 30 ML UDCUP PO ONE ×3 (14:52→18:45)
[2017-10-14] MEDS ORDERED: HYOSCYAMINE SULFATE 0.125 MG TAB PO ONE ×2 (14:52→18:45)
[2017-10-14] MEDS ORDERED: DEXAMETHASONE 4 MG TAB PO PRN (14:52)
[2017-10-14] MEDS ORDERED: MORPHINE PO PRN (14:52)
[2017-10-14] MEDS ORDERED: LIDOCAINE 2% VISCOUS 15 ML UDCUP PO ONE ×2 (14:52→18:45)
[2017-10-14] MEDS ORDERED: chlorproMAZINE HCL 25 MG TAB PO PRN (15:03)
[2017-10-14] MEDS: D5W 1/2 NS W/ 20 KCl/L 1,000 ML IV SCH ×2 (15:38→23:49)
[2017-10-14] MEDS ORDERED: PALONOSETRON HCL 0.25 MG/5 ML VIAL IVP ONE (16:00)
--- NOTE | 2017-10-14 16:57 | PDMN ---
Medical Necessity Medical necessity: est los>2mn for intractable n/v and hiccups likely r/t chemo , dehydration, and suspected laryngospasm; admit for continuous pulse ox, ENT consult, IVF; comorbid metastatic colorectal CA; per order and H&P
[2017-10-14] MEDS: PANTOPRAZOLE SODIUM 40 MG TAB PO SCH ×2 (18:30→20:41)
[2017-10-14] MEDS: ATORVASTATIN CALCIUM 20 MG TAB PO SCH (19:37)
[2017-10-14] MEDS: PROMETHAZINE HCL 25 MG/ML INJ IVP PRN (20:40)
[2017-10-14] MEDS: LORazepam 1 MG TAB PO PRN (20:41)
[2017-10-14] MEDS: FAMOTIDINE 20 MG TAB PO SCH (20:41)
[2017-10-14] MEDS ORDERED: RANITIDINE HCL 150 MG/10 ML UDCUP PO SCH (21:00)
--- NOTE | 2017-10-15 03:43 | GCON ---
[f rep st] CONSULTATION HISTORY OF PRESENT ILLNESS: This is a 67-year-old male with a history of metastatic colorectal cancer, status post chemotherapy on October 08, 2017, who presents with nausea, vomiting, and diarrhea. The patient notes that he has been having difficulty with vomiting ever since he started chemotherapy in November. He states that he has had vomiting on average 3 times a day since April of this year. He presents to the emergency room today due to difficulty breathing and feeling like his throat is constricted. He denies any significant dysphagia or odynophagia. He does note that his voice is quite hoarse. ENT is consulted for airway evaluation. PHYSICAL EXAMINATION: GENERAL: This is a 67-year-old male, in no acute distress. ENT: Oropharynx is moist, without evidence of swelling. No oral ulcers. Neck is without lymphadenopathy or mass. Flexible laryngoscopic exam was performed through the left side of the nose. Nasopharynx is slightly erythematous, without edema or obstruction. Base of tongue is normal. Epiglottis erythematous, but without edema. Arytenoids erythematous, but without edema. True vocal cords move well on phonation and inspiration. Airway is widely patent on exam at this time. He does have some pooling of secretions throughout, that do clear with swallow. ASSESSMENT AND PLAN: This is a 67-year-old male with a history of significant recent intractable nausea, vomiting, and hiccups. I suspect that his difficulty breathing is due to his inflamed larynx from chronic vomiting. He has a widely patent airway at this time; however, a common cause of laryngospasm , which is what the patient is describing, is GERD. 1. Agree with monitoring pulse ox. 2. Recommend b.i.d. proton pump inhibitor as well as a histamine lexi GI cocktail that has already been ordered. 3. I discussed this plan with Dr. Lynne, and he agrees with above. 4. We will sign off at this point. Please re-consult ENT if there are any further airway concerns. Thank you so much for allowing us to participate in the care of this patient. If you have any further questions, please do not hesitate to contact our office. /[id number]/MODL MTDD
[2017-10-15] MEDS: D5W 1/2 NS W/ 20 KCl/L 1,000 ML IV SCH ×3 (08:00→21:34)
[2017-10-15] MEDS: TAMSULOSIN HCL 0.4 MG CAP PO SCH (08:00)
[2017-10-15] MEDS: PANTOPRAZOLE SODIUM 40 MG TAB PO SCH ×2 (08:01→21:35)
[2017-10-15] MEDS: ENOXAPARIN 40 MG/0.4 ML SYR SC SCH (08:01)
[2017-10-15] MEDS: FAMOTIDINE 20 MG TAB PO SCH ×2 (08:01→21:35)
[2017-10-15] MEDS ORDERED: Herbals/Supplements -Info Only PO SCH (09:00)
--- NOTE | 2017-10-15 11:31 | HOSPPROG ---
Hospitalist Progress Note Assessment/Plan: Assessment & Plan This is a 67-year-old male with history of metastatic colorectal cancer status post chemotherapy last week presenting with: # intractable nausea vomiting and hiccups likely chemotherapy related ( persistent without improvement) -cont ivf -cont supportive care -trial reglan #Dehydration (Acute) #Colon cancer (Acute) #Suspected laryngospasm and globus sensation -monitor on pulse ox -ENT consult -BID PPI/H2 trial gi cocktail #malnutrition -unable to eat for 1 week. will cont to encourage diet, but may need to resort to TPB Disposition: The patient will be admitted hospital under inpatient status as I suspect he will require hospitalization for greater than 24 hours Subjective: continues to have hiccups, n&v, and sensation that something is in his throat. Has episodes of feeling unable to breath. Objective: Vital Signs Temp Pulse Resp BP Pulse Ox 36.8 C 87 14 143/89 H 94 10/15/17 08:23 10/15/17 08:23 10/15/17 08:23 10/15/17 08:23 10/15/17 08:23 10/14/17 10/15/17 10/16/17 05:59 05:59 05:59 Intake Total 1878 Output Total 850 Balance 1028 - Physical Exam Constitutional: chronically ill appearing Cardiovascular: regular rate and rhythym, no murmur, rub, or gallop Respiratory: no respiratory distress, no rales or rhonchi, clear to auscultation , other (no stridor) Gastrointestinal: normoactive bowel sounds, soft, non-tender abdomen, no palpable masses, No guarding, No rebound ICD10 Worksheet Patient Problems: Problems Problem Status Onset Nausea and vomiting Acute Shortness of breath Acute Generalized weakness Acute Dehydration Acute Colon cancer Acute Globus sensation Acute
--- NOTE | 2017-10-15 11:44 | SOAPPROG ---
SOAP Progress Note Assessment/Plan: Assessment/Plan: 67 yo man from [facility] w metastatic colon cancer most recently on FOLFIRI + Avastin He presented yesterday s/p C22 chemotherapy last week w intractable nausea/ vomiting and diarrhea He is malnourished from chronic GI side effects in relation to therapy Most recent scans show stable disease although CEA is slightly up 1. N/V - on IVF favor short term TPN while po intake increasing Aloxi given 10/14 seems to respond to Ativan as well 2. hiccups - exacerbating #1 starting baclofen today avoid steroids 3. Reflux - GI cocktail w BID ppi laryngoscope did not show airway compromise agree due to persistent vomiting and reflux 4. colon cancer - relative stable on current regimen due next week for therapy but will delay dose while he recovers 5. Diarrhea -chronic usually on morphine which can cause constipation would add Imodium w every loose stool for now 10/15/17 11:39 Subjective: Slightly better today still w hiccups Thorazine caused vomiting Objective: Vital Signs Temp Pulse Resp BP Pulse Ox 36.9 C 88 19 140/86 H 95 10/15/17 11:18 10/15/17 11:18 10/15/17 11:18 10/15/17 11:18 10/15/17 11:18 10/14/17 10/15/17 10/16/17 05:59 05:59 05:59 Intake Total 1878 Output Total 850 Balance 1028 Gen - chronically ill appearing HEENT - anicteric CV - RRR Resp - clear bilaterally Ext - thin, no edema ICD10 Worksheet Patient Problems: Problems Problem Status Onset Colon cancer Acute Dehydration Acute Globus sensation Acute Generalized weakness Acute Nausea and vomiting Acute Shortness of breath Acute
[2017-10-15] MEDS ORDERED: METOCLOPRAMIDE 10 MG/2 ML VIAL IVP SCH (12:00)
--- NOTE | 2017-10-15 13:29 | GCON ---
[f rep st] CONSULTATION NEW PATIENT CONSULTATION REFERRING PHYSICIAN: Juan Candelaria DO REASON FOR CONSULTATION: Patient known to Dr. Shae Noguera, admitted with intractable nausea and thr oat spasms. HISTORY OF PRESENT ILLNESS: The patient is a gentleman from [facility] diagnosed in r 2009 with stage IIIC colon cancer. He had a hemicolectomy, then adjuvant FOLFOX at [facility] by Dr. Darrion Espino. He had a lymph node causing extrinsic compression of his upper bowel removed in March of 2016. In 2016, he developed liver and peritoneal metastases and started on FOLFIR I and Avastin. He has been on this therapy since that time. Most recent dose of cycle 22 was given on 10/08/2017. Notably, he is heterozygote for the UGT1A1 mutation. After receiving chemotherapy 10/08, the patient almost had an immediate reaction with nausea and vomi ting worse than it has been in the past. His pre meds were atropine, palonosetron, dexamethasone, an d fosaprepitant. He was also given an additional milligram of Ativan which made him confused and sed ated. Later last week, the patient called with more nausea and vomiting, and he was recommended to t sheryl dexamethasone. Since that time, he has had extreme hiccups which have not been present before. The patient reports daily vomiting, sometimes 14 times a day, intermittent, with occasional diarrhea. His nausea has been extreme this past week and something he has not experienced, but the is co ncerned because the patient has been throwing up so much that his throat seemed to be closing and he was having difficulty breathing. The patient has a hoarse voice and has had esophageal burning, and is afraid to eat due to throwing up. He has lost 10 pounds and has not eaten in 5 days. His Hyperoptic seas do not seem to be working at home. REVIEW OF SYSTEMS: As per HPI; otherwise 14-point review of systems negative. Denies hematemesis. Right-sided chest pain and shortness of breath prompted ED visit today. He denies abdominal pain. M ost recent CT imaging shows stable disease with some slight increase in abdominal ascites. He denies lower extremity edema and neurologic changes. PAST MEDICAL HISTORY: Cancer and GERD. He has been on PPI. MEDICATIONS: Home medications have been reviewed. SURGICAL HISTORY: Only for lymph node removal in March of 2016, as detailed above. FAMILY HISTORY: Alzheimer disease, TB. SOCIAL HISTORY: Former smoking. No alcohol use. No drug use. He is accompanied by his daughter an d his today. PHYSICAL EXAM: VITAL SIGNS: Blood pressure 174/110, heart rate 93, respiration rate 20, O2 saturati on 96% on room air, temp 36.4. GENERAL: Elderly gentleman, looks older than his stated age, not in acute distress but chronically ill appearing. HEENT: Anicteric. Oropharynx is clear. Some redness in the posterior oropharynx. HEART: Regular rate and rhythm. LUNGS: Clear to auscultation bilate rally. ABDOMEN: Soft, nontender. Bowel sounds are positive. LOWER EXTREMITIES: No edema. SKIN: No rash. LABORATORY DATA: Labs today: CBC is essentially within normal limits, with increase in absolute marilee trophil count due to recent steroids. His creatinine is 1.0. ASSESSMENT AND PLAN: 67-year-old with history of stage IV metastatic colorectal cancer, currently on palliative treatment with FOLFIRI and Avastin. His last dose of chemotherapy was 10/08/2017. He pr esents with intractable vomiting, hiccups, and a feeling of laryngeal spasms. 1. Intractable nausea and vomiting: Possibly due to IV push of chemo medications due to IV normal s agustin shortage. I am also concerned that he has severe gastroesophageal reflux disease, and this cou ld be contributing. Would recommend starting IV fluids, and possibly total parenteral nutrition star ting tomorrow, if things do not improve. I am also going to dose him with Aloxi and recommend twice daily PPI, and possibly EGD while he is in the hospital as well as evaluation for laryngospasm. 2. Hiccups: Likely due to steroid use. Can monitor with benzodiazepine. 3. Dehydration: IV fluids. 4. Colon cancer: Seems to be stable from this standpoint. Recent CT chest, abdomen and pelvis show s no progressive disease. Will discuss further management with hospitalist Dr. Juan Candelaria. /[id number]/MODL
[2017-10-15] MEDS: BACLOFEN 10 MG TAB PO SCH ×2 (14:31→21:35)
[2017-10-15] MEDS: PROMETHAZINE HCL 25 MG/ML INJ IVP PRN (15:37)
[2017-10-15] MEDS: LOPERAMIDE HCL 2 MG CAP PO PRN ×2 (16:21→18:30)
[2017-10-15] MEDS: ATORVASTATIN CALCIUM 20 MG TAB PO SCH (18:30)
[2017-10-15] MEDS: LORazepam 1 MG TAB PO PRN (21:35)
[2017-10-16] MEDS: morphINE 10 MG/0.5 ML UDSYR PO PRN ×5 (02:53→22:55)
[2017-10-16] MEDS: D5W 1/2 NS W/ 20 KCl/L 1,000 ML IV SCH ×2 (04:31→13:22)
[2017-10-16] MEDS: TAMSULOSIN HCL 0.4 MG CAP PO SCH (08:48)
[2017-10-16] MEDS: BACLOFEN 10 MG TAB PO SCH ×3 (08:48→21:31)
[2017-10-16] MEDS: FAMOTIDINE 20 MG TAB PO SCH ×2 (08:48→21:31)
[2017-10-16] MEDS: ENOXAPARIN 40 MG/0.4 ML SYR SC SCH (08:49)
[2017-10-16] MEDS: PANTOPRAZOLE SODIUM 40 MG TAB PO SCH ×2 (08:49→21:31)
[2017-10-16 08:51] LABS: MAGNESIUM 2.1 mg/dL (1.6-2.3)
[2017-10-16] MEDS ORDERED: DIPHENOXYLATE/ATROPINE LOMOTIL 1 TAB PO PRN (12:05)
--- NOTE | 2017-10-16 12:11 | SOAPPROG ---
SOAP Progress Note Assessment/Plan: Assessment/Plan: 67 yo man from [facility] w metastatic colon cancer most recently on FOLFIRI + Avastin He presented yesterday s/p C22 chemotherapy last week w intractable nausea/ vomiting and diarrhea He is malnourished from chronic GI side effects in relation to therapy Most recent scans show stable disease although CEA is slightly up 1. N/V - on IVF doing better w oral intake; holding TPN for now Aloxi given 10/14 seems to respond to Ativan as well 2. hiccups - exacerbating #1 better w baclofen avoid steroids 3. Reflux - GI cocktail w BID ppi laryngoscope did not show airway compromise agree due to persistent vomiting and reflux 4. colon cancer - relative stable on current regimen due next week for therapy but will delay dose while he recovers d/w Poornima either lowering or holding irinotecan (5-6BM/daily) 5. Diarrhea -chronic usually on morphine which can cause constipation would add Imodium w every loose stool for now adding Lomotil today 10/15/17 11:39 10/16/17 12:07 Subjective: Somewhat better today able to keep po down yesterday evening and this morning hiccups improved but still present Objective: Vital Signs Temp Pulse Resp BP Pulse Ox 36.5 C 112 H 28 H 163/107 H 92 10/16/17 07:21 10/16/17 07:21 10/16/17 07:21 10/16/17 07:21 10/16/17 07:21 10/15/17 10/16/17 10/17/17 05:59 05:59 05:59 Intake Total 1878 3077 Output Total 850 200 Balance 1028 2877 Gen - chronically ill appearing HEENT - anicteric CV - RRR Lungs - clear Abd - mild distention but BS+ and soft, no guarding ICD10 Worksheet Patient Problems: Problems Problem Status Onset Colon cancer Acute Dehydration Acute Globus sensation Acute Generalized weakness Acute Nausea and vomiting Acute Shortness of breath Acute
--- NOTE | 2017-10-16 13:26 | HOSPPROG ---
Hospitalist Progress Note Assessment/Plan: Assessment & Plan This is a 67-year-old male with history of metastatic colorectal cancer status post chemotherapy last week presenting with: # intractable nausea vomiting and hiccups likely chemotherapy related (improving ) -buff cont ivf now that he is tolerating pos -cont supportive care -continue reglan and consider outpatient treatment with scheduled reglan given h/o chronic nausea and gastroparesis #left sided pleuritic pain with rib inhalation dysfunction on exam without tachycardia or hypoxemia. -I suspect his pain is musculoskeletal in etiology given his intractable headache ups. Pulmonary embolism does remain in the differential however this does seem less likely given he is not hypoxemic, tachycardic, or much distress -osteopathic manipulative treatment was applied to his left ribs 8 through 12 -consider further imaging if the pain worsens or if he has other clinical signs of pulmonary embolism #Dehydration (resolved) #Colon cancer (Acute) #Suspected laryngospasm and globus sensation (improving) -monitor on pulse ox -ENT consult appreciated -BID PPI/H2 trial gi cocktail #malnutrition improving -we were going to start tpn, but this what not needed in light of now being able to eat Disposition: The patient will be admitted hospital under inpatient status as I suspect he will require hospitalization for greater than 24 hours Possible DC 10/17/17 Subjective: tolerating some pos. continues to have some hiccups, but doing better. no fever or chills. describes some left sided pleuritic pain with deep inspiration. Objective: Vital Signs Temp Pulse Resp BP Pulse Ox 36.6 C 92 18 126/87 H 94 10/16/17 12:30 10/16/17 12:30 10/16/17 12:30 10/16/17 12:30 10/16/17 12:30 10/15/17 10/16/17 10/17/17 05:59 05:59 05:59 Intake Total 1878 3077 Output Total 850 200 Balance 1028 2877 - Physical Exam Constitutional: no apparent distress Cardiovascular: regular rate and rhythym, no murmur, rub, or gallop Respiratory: no respiratory distress, no rales or rhonchi, clear to auscultation , other (left ribs 8-0 stuck in inhalation ) Gastrointestinal: normoactive bowel sounds, soft, non-tender abdomen, no palpable masses, No guarding, No rebound Neurologic: AAOx3, sensation intact bilaterally ICD10 Worksheet Patient Problems: Problems Problem Status Onset Nausea and vomiting Acute Shortness of breath Acute Generalized weakness Acute Dehydration Acute Colon cancer Acute Globus sensation Acute
[2017-10-16] MEDS ORDERED: IOPAMIDOL (ISOVUE 370) 100 ML BTL IV ONE (16:22)
[2017-10-16] MEDS: ATORVASTATIN CALCIUM 20 MG TAB PO SCH (17:32)
[2017-10-16] MEDS: LORazepam 1 MG TAB PO PRN (18:30)
[2017-10-16] MEDS: ENOXAPARIN 80 MG/0.8 ML SYR SC SCH (21:31)
[2017-10-17] MEDS: LORazepam 1 MG TAB PO PRN ×2 (01:26→10:16)
[2017-10-17] MEDS: morphINE 10 MG/0.5 ML UDSYR PO PRN ×4 (04:05→12:45)
[2017-10-17 04:15] LABS: % IMMATURE GRANULYOCYTES 1.1 % (0.0-1.1); ABSOLUTE IMMATURE GRANULOCYTES 0.07 10^3/uL (0.00-0.10); ADD DIFF? NO; ADD MORPH? YES; ADD SCAN? YES; ATYPICAL LYMPHOCYTE FLAG 20 (0-99); FRAGMENT RBC FLAG 20 (0-99); HEMATOCRIT 42.8 % (40.0-51.0); HEMOGLOBIN 13.7 g/dL (13.7-17.5); LIPEMIA HEMOLYSIS FLAG 80 (0-99); MEAN CELL HEMOGLOBIN 28.2 pg (27.9-34.1); MEAN CELL VOLUME 88.2 fL (81.5-99.8); MEAN PLATELET VOLUME 10.3 fL (8.7-11.7); PLATELET CLUMPS FLAG 0 (0-99); PLATELET COUNT 225 10^3/uL (150-400); RED BLOOD CELL COUNT 4.85 10^6/uL (4.40-6.38)
[2017-10-17 04:20] LABS: LEFT SHIFT FLG 200 (0-99); RED CELL DISTRIBUTION WIDTH 20.2 % (11.5-15.2)
[2017-10-17 04:38] LABS: ALANINE AMINOTRANSFERASE 33 IU/L (21-72); ALBUMIN 2.9 g/dL (3.5-5.0); ALKALINE PHOSPHATASE 180 IU/L (38-126); ANION GAP 9 mEq/L (8-16); ASPARTATE AMINOTRANSFERASE 14 IU/L (17-59); BILIRUBIN,TOTAL 0.6 mg/dL (0.1-1.4); CALCIUM 8.9 mg/dL (8.5-10.4); CARBON DIOXIDE 27 mEq/l (22-31); CHLORIDE 100 mEq/L (97-110); CREATININE 0.9 mg/dL (0.7-1.3); GLOMERULAR FILTRATION RATE > 60; GLUCOSE 112 mg/dL (70-100); POTASSIUM 4.6 mEq/L (3.5-5.2); SODIUM 136 mEq/L (134-144); TOTAL PROTEIN 5.8 g/dL (6.3-8.2)
[2017-10-17 04:46] LABS: SCAN NEGATIVE
[2017-10-17 04:49] LABS: ELLIPTOCYTES 1+; MACROCYTES 1+; MICROCYTES 1+; PLATELET ESTIMATE ADEQUATE (ADEQ)
[2017-10-17] MEDS: FAMOTIDINE 20 MG TAB PO SCH (08:33)
[2017-10-17] MEDS: TAMSULOSIN HCL 0.4 MG CAP PO SCH (08:33)
[2017-10-17] MEDS: BACLOFEN 10 MG TAB PO SCH ×3 (08:33→22:12)
[2017-10-17] MEDS: PANTOPRAZOLE SODIUM 40 MG TAB PO SCH (08:34)
[2017-10-17] MEDS: ENOXAPARIN 80 MG/0.8 ML SYR SC SCH ×2 (08:35→22:12)
[2017-10-17] MEDS ORDERED: D10W 1,000 ML IV PRN (10:50)
[2017-10-17 10:56] LABS: LACTATE DEHYDROGENASE 386 IU/L (313-618)
--- NOTE | 2017-10-17 10:59 | SOAPPROG ---
SOAP Progress Note Assessment/Plan: Assessment/Plan: 67 yo man from [facility] w metastatic colon cancer most recently on FOLFIRI + Avastin He presented yesterday s/p C22 chemotherapy last week w intractable nausea/ vomiting and diarrhea He is malnourished from chronic GI side effects in relation to therapy Most recent scans show stable disease although CEA is slightly up 1. N/V - on IVF was doing better yesterday w oral intake but reports more epigastric pain again today; nausea and mucous production have improved favor starting TPN tonight as pt really has not eaten for close to 10 days switch oral GI cocktail to IV BID ppi consider EGD or GI evaluation 2. hiccups - somewhat improved w baclofen avoid steroids 3. Reflux - IV ppi laryngoscope did not show airway compromise agree due to persistent vomiting and reflux may need EGD to rule out infection or ulcerative dz 4. colon cancer - relative stable on current regimen due next week for therapy but will delay dosing while he recovers d/w Poornima either lowering or holding irinotecan (5-6BM/daily) 5. Diarrhea -improved no BM since yesterday when added Lomotil usually on morphine which can cause constipation 6. New RML and RLL low volume PE - on weight based lovenox 7. Acute LUQ pain - CC scans from 09/02 show nothing to explain his pain today Pt is guarding w 31/08 pain Exam does not seem to suggest obstruction STAT lactate and CT w IV contrast Subjective: Acute RML/RLL PEs discovered yesterday Pt now w severe LUQ pain Objective: Vital Signs Temp Pulse Resp BP Pulse Ox 36.1 C 102 H 18 115/77 96 10/17/17 08:15 10/17/17 08:15 10/17/17 08:15 10/17/17 08:15 10/17/17 08:15 Laboratory Results 10/17/17 04:00 10/17/17 04:00 10/16/17 10/17/17 10/18/17 05:59 05:59 05:59 Intake Total 3077 1225 Output Total 200 950 Balance 2877 275 Gen - In moderate distress but did receive morphine HEENT - anicteric CV - RRR Abd - guarding in LUQ, no obvious enlarged spleen BS+, mild distention ext - no sig edema ICD10 Worksheet Patient Problems: Problems Problem Status Onset Colon cancer Acute Dehydration Acute Globus sensation Acute Generalized weakness Acute Nausea and vomiting Acute Shortness of breath Acute
[2017-10-17 11:27] LABS: INR 2.09 (0.83-1.16); PROTIME(PATIENT) 23.5 SEC (12.0-15.0)
[2017-10-17 11:28] LABS: APTT 51.7 SEC (23.0-38.0)
[2017-10-17 12:26] LABS: MAGNESIUM 2.1 mg/dL (1.6-2.3)
[2017-10-17] MEDS ORDERED: IOPAMIDOL (ISOVUE-300) 100 ML BTL ONE (13:17)
--- NOTE | 2017-10-17 15:53 | HOSPPROG ---
Hospitalist Progress Note Assessment/Plan: * Metastatic colon cancer - liver/peritoneal mets -palliative chemo * Intractable N/V -empiric IV PPI - consider EGD * Acute PE -Lovenox - start warfarin * Severe LUQ pain -d/w Dr. Kelly - check CT abd/pelvis today * Severe protein calorie malnutrition -start TPN * Intractable hiccups -scheduled baclofen * Laryngeal inflammation due to N/V Subjective: no new complaints. Objective: Vital Signs Temp Pulse Resp BP Pulse Ox 36.5 C 107 H 22 H 123/88 H 96 10/17/17 12:37 10/17/17 12:37 10/17/17 12:37 10/17/17 12:37 10/17/17 12:37 Laboratory Results 10/17/17 04:00 10/17/17 04:00 10/16/17 10/17/17 10/18/17 05:59 05:59 05:59 Intake Total 3077 1225 Output Total 200 950 Balance 2877 275 PT 23.5 SEC (12.0-15.0) H 10/17/17 11:05 INR 2.09 (0.83-1.16) H 10/17/17 11:05 CT chest - acute PE on right - Physical Exam Constitutional: no apparent distress, appears nourished, not in pain Cardiovascular: regular rate and rhythym, no murmur, rub, or gallop Respiratory: no respiratory distress, no rales or rhonchi, clear to auscultation Gastrointestinal: normoactive bowel sounds, soft, non-tender abdomen, no palpable masses Skin: no rashes or abrasions, no fluctuance, no induration Neurologic: AAOx3, sensation intact bilaterally Psychiatric: interacting appropriately, not anxious, not encephalopathic, thought process linear ICD10 Worksheet Patient Problems: Problems Problem Status Onset Colon cancer Acute Dehydration Acute Globus sensation Acute Generalized weakness Acute Nausea and vomiting Acute Shortness of breath Acute
--- NOTE | 2017-10-17 16:20 | ASMTCMCOM ---
CM Note CM Note Notes: Pt with colon ca admitted for dehydration and poor oral intake. Pt currently on TPN but per Dr Benitez, he will DC once he can eat. Pt will likely have no other DC needs. Date Signed: 10/17/2017 04:19 PM Electronically Signed By:Savanna Valdez LCSW
[2017-10-17] MEDS: WARFARIN SODIUM 5 MG TAB PO SCH (16:23)
[2017-10-17] MEDS: ATORVASTATIN CALCIUM 20 MG TAB PO SCH (18:03)
[2017-10-17] MEDS: TPN 1 EA BAG IV SCH (22:03)
[2017-10-17] MEDS: PANTOPRAZOLE SODIUM 40 MG VIAL IVP SCH (22:12)
[2017-10-18] MEDS: morphINE 10 MG/0.5 ML UDSYR PO PRN ×2 (03:56→06:36)
[2017-10-18 04:42] LABS: % IMMATURE GRANULYOCYTES 1.9 % (0.0-1.1); ABSOLUTE IMMATURE GRANULOCYTES 0.08 10^3/uL (0.00-0.10); ADD DIFF? NO; ADD MORPH? NO; ADD SCAN? YES; ATYPICAL LYMPHOCYTE FLAG 30 (0-99); FRAGMENT RBC FLAG 20 (0-99); HEMATOCRIT 40.2 % (40.0-51.0); HEMOGLOBIN 13.1 g/dL (13.7-17.5); LIPEMIA HEMOLYSIS FLAG 80 (0-99); MEAN CELL HEMOGLOBIN 28.8 pg (27.9-34.1); MEAN CELL HEMOGLOBIN CONCENTR. 32.6 g/dL (32.4-36.7); MEAN CELL VOLUME 88.4 fL (81.5-99.8); MEAN PLATELET VOLUME 11.2 fL (8.7-11.7); PLATELET CLUMPS FLAG 0 (0-99); PLATELET COUNT 229 10^3/uL (150-400); RED BLOOD CELL COUNT 4.55 10^6/uL (4.40-6.38); RED CELL DISTRIBUTION WIDTH 19.9 % (11.5-15.2)
[2017-10-18 04:45] LABS: LEFT SHIFT FLG 200 (0-99)
[2017-10-18 04:53] LABS: INR 1.53 (0.83-1.16); PROTIME(PATIENT) 18.5 SEC (12.0-15.0)
[2017-10-18 04:54] LABS: APTT 38.2 SEC (23.0-38.0)
[2017-10-18 05:10] LABS: SCAN NEGATIVE
[2017-10-18 05:12] LABS: ALANINE AMINOTRANSFERASE 30 IU/L (21-72); ALBUMIN 2.7 g/dL (3.5-5.0); ALKALINE PHOSPHATASE 168 IU/L (38-126); ANION GAP 11 mEq/L (8-16); ASPARTATE AMINOTRANSFERASE 14 IU/L (17-59); BILIRUBIN,TOTAL 0.4 mg/dL (0.1-1.4); CALCIUM 8.7 mg/dL (8.5-10.4); CARBON DIOXIDE 27 mEq/l (22-31); CHLORIDE 98 mEq/L (97-110); CREATININE 0.8 mg/dL (0.7-1.3); GLOMERULAR FILTRATION RATE > 60; GLUCOSE 138 mg/dL (70-100); MAGNESIUM 1.9 mg/dL (1.6-2.3); POTASSIUM 4.1 mEq/L (3.5-5.2); SODIUM 136 mEq/L (134-144); TOTAL PROTEIN 5.7 g/dL (6.3-8.2)
[2017-10-18] MEDS: PROMETHAZINE HCL 25 MG/ML INJ IVP PRN ×2 (06:36→18:27)
[2017-10-18] MEDS: LORazepam 1 MG TAB PO PRN (06:37)
[2017-10-18] MEDS ORDERED: HYDROmorphONE/DILAUDID 1 MG/ML INJ IVP ONE (07:15)
[2017-10-18] MEDS: PANTOPRAZOLE SODIUM 40 MG VIAL IVP SCH ×2 (10:04→21:23)
[2017-10-18] MEDS: ENOXAPARIN 80 MG/0.8 ML SYR SC SCH ×2 (10:04→22:05)
[2017-10-18] MEDS: BACLOFEN 10 MG TAB PO SCH (11:23)
[2017-10-18] MEDS ORDERED: BISACODYL 10 MG SUPP PR PRN (12:13)
[2017-10-18] MEDS ORDERED: SIMETHICONE 80 MG TAB CHEW PO PRN (12:13)
[2017-10-18] MEDS ORDERED: LACTULOSE 20 GM/30 ML UDCUP PO PRN (12:13)
[2017-10-18] MEDS ORDERED: MAGNESIUM HYDROXIDE 30 ML UDCUP PO PRN (12:13)
[2017-10-18] MEDS ORDERED: POLYETHYLENE GLYCOL 3350 17 GM PKT PO PRN (12:13)
--- NOTE | 2017-10-18 12:37 | CPEKG ---
Heart Rate: 106 RR Interval: 566 P-R Interval: 136 QRSD Interval: 86 QT Interval: 348 QTC Interval: 463 P [place]: 36 QRS [place]: 26 T Wave [place]: 43 EKG Severity - OTHERWISE NORMAL ECG - EKG Impression: SINUS TACHYCARDIA Electronically Signed By: Robert Hamilton 18-Oct-2017 13:23:54
--- NOTE | 2017-10-18 14:46 | SOAPPROG ---
SOAP Progress Note Assessment/Plan: Assessment: 67 yo man from [facility] w metastatic colon cancer most recently on FOLFIRI + Avastin He presented yesterday s/p C22 chemotherapy last week w intractable nausea/ vomiting and diarrhea He is malnourished from chronic GI side effects in relation to therapy Most recent scans show stable disease although CEA is slightly up 1. N/V - on IVF - not complaining of nausea at the moment - TPN 2. hiccups - somewhat improved. 3. Reflux - IV ppi laryngoscope did not show airway compromise agree due to persistent vomiting and reflux may need EGD to rule out infection or ulcerative dz 4. colon cancer - relative stable on current regimen due next week for therapy but will delay dosing while he recovers d/w Poornima either lowering or holding irinotecan (5-6BM/daily) 5. Diarrhea -improved 6. New RML and RLL low volume PE - on weight based lovenox 7. Acute LUQ pain - [facility] scans from 09/02 show nothing to explain his pain. Currently he has urinary retention. He is to be straight cathed to see if pain improves. Plan: Straight cath TPN/fluids chemo on hold for now Subjective: C/O sever pain in L flank Objective: Vital Signs Temp Pulse Resp BP Pulse Ox 36.3 C 111 H 18 106/76 95 10/18/17 11:31 10/18/17 11:31 10/18/17 11:31 10/18/17 11:31 10/18/17 11:31 Laboratory Results 10/18/17 04:30 10/18/17 04:30 10/16/17 10/17/17 10/18/17 23:59 23:59 23:59 Intake Total 2189 1725 828 Output Total 500 450 200 Balance 1689 1275 628 PT 18.5 SEC (12.0-15.0) H 10/18/17 04:30 INR 1.53 (0.83-1.16) H 10/18/17 04:30 Physical Exam - Physical Exam General Appearance: severe distress Respiratory: No crackles Abdomen: distended (flushed face) Neuro/Psych: No oriented x 3 ICD10 Worksheet Patient Problems: Problems Problem Status Onset Colon cancer Acute Dehydration Acute Globus sensation Acute Generalized weakness Acute Nausea and vomiting Acute Shortness of breath Acute
--- NOTE | 2017-10-18 15:08 | HOSPPROG ---
Hospitalist Progress Note Assessment/Plan: * Metastatic colon cancer - liver/peritoneal mets -palliative chemo * Intractable N/V -empiric IV PPI - consider EGD -consider add Carafate * Acute PE -Lovenox - start warfarin * Ascites - US guided paracentesis * Severe protein calorie malnutrition -start TPN * Intractable hiccups due to esophageal irritation -baclofen * Laryngeal spasm due to N/V * Urinary retention -straight cath x 1 and then follow PVR when mental status improves -continue Flomax * Encephalopathy - suspect extreme ativan effect Subjective: Severe abd pain all night, got ativan x1, now completely sedated Objective: Vital Signs Temp Pulse Resp BP Pulse Ox 36.3 C 111 H 18 106/76 95 10/18/17 11:31 10/18/17 11:31 10/18/17 11:31 10/18/17 11:31 10/18/17 11:31 Laboratory Results 10/18/17 04:30 10/18/17 04:30 10/17/17 10/18/17 10/19/17 05:59 05:59 05:59 Intake Total 1225 2028 Output Total 950 200 Balance 275 1828 PT 18.5 SEC (12.0-15.0) H 10/18/17 04:30 INR 1.53 (0.83-1.16) H 10/18/17 04:30 CT scan reviewed with Dr. Bernardo - no evidence for colon obstruction EKG viewed, my personal interpretation is - sinus tachy - Physical Exam Constitutional: no apparent distress, appears nourished, not in pain Cardiovascular: regular rate and rhythym, no murmur, rub, or gallop Respiratory: no respiratory distress, no rales or rhonchi, clear to auscultation Gastrointestinal: normoactive bowel sounds, soft, non-tender abdomen, no palpable masses Skin: no rashes or abrasions, no fluctuance, no induration Neurologic: No AAOx3 Psychiatric: encephalopathic, poor insight, poor judgement, poor memory, No interacting appropriately ICD10 Worksheet Patient Problems: Problems Problem Status Onset Colon cancer Acute Dehydration Acute Globus sensation Acute Generalized weakness Acute Nausea and vomiting Acute Shortness of breath Acute
[2017-10-18] MEDS: HYDROmorphone HCL/NS/PF 0.4 MG/2 ML SYR IVP PRN ×2 (16:31→18:22)
[2017-10-18] MEDS: TAMSULOSIN HCL 0.4 MG CAP PO SCH (16:47)
[2017-10-18] MEDS ORDERED: LIDOCAINE 2% JELLY 20 ML (UROJECT) UR ONE (17:00)
--- NOTE | 2017-10-18 18:53 | HOSPPROG ---
Hospitalist Progress Note Assessment/Plan: STAT team called for tachycardia and concern of aspiration. Coughing up "large amount of sputum and appeared to be choking" per RN S: he c/o throat pain now, no abd pain (recently dosed 0.4mg dilaudid) #Tachycardia: likely driven by pain. BP stable. Sinus tach on telemetry #LLQ pain: unclear. CT not revealing. May be due to urinary retention vs, constipation vs, muscle strain/spasm with retching ? >850cc in bladder. Urology to help place rodriguez. Plan for paracentesis tomorrow. -trial heating pad and Lidoderm patch #Concern of aspiration: excessive secretion, drooling. RT for aggressive suctioning. Consider scopalamine patch (but may cause more retention) -stable on RA now #Somnolence: combo of Phenergan and Dilaudid. Decrease dose #Disp: transfer to PCU overnight for aggressive suctioning and closer RN monitoring Critical care time spent: 35 min bedside with patient, reviewing notes, imaging and d/w his Objective: Vital Signs Temp Pulse Resp BP Pulse Ox 36.7 C 126 H 20 137/90 H 93 10/18/17 16:00 10/18/17 18:34 10/18/17 18:34 10/18/17 18:34 10/18/17 18:34 Laboratory Results 10/18/17 04:30 10/18/17 04:30 10/17/17 10/18/17 10/19/17 05:59 05:59 05:59 Intake Total 1225 2028 Output Total 950 200 100 Balance 275 1828 -100 PT 18.5 SEC (12.0-15.0) H 10/18/17 04:30 INR 1.53 (0.83-1.16) H 10/18/17 04:30 - Physical Exam Constitutional: other (lethargic) Eyes: PERRL (pinpoint, but reactive), other Ears, Nose, Mouth, Throat: moist mucous membranes, hearing normal, other ( patent airway) Cardiovascular: regular rate and rhythym Respiratory: no respiratory distress, no rales or rhonchi, reduced air movement Gastrointestinal: distension (mildly distended, soft. No LLQ or back TTP with my exam) Genitourinary: No rodriguez in urethra Skin: warm Neurologic: other (opens eyes to voice. will answer questions with brief answer) Psychiatric: other (somolent) ICD10 Worksheet Patient Problems: Problems Problem Status Onset Colon cancer Acute Dehydration Acute Globus sensation Acute Generalized weakness Acute Nausea and vomiting Acute Shortness of breath Acute
[2017-10-18] MEDS: ATORVASTATIN CALCIUM 20 MG TAB PO SCH (19:29)
--- NOTE | 2017-10-18 20:38 | SOAPPROG ---
SOAP Progress Note Assessment/Plan: Assessment: 1. Presumed urinary retention & inability to catheterize. 2. History of BPH. Plan: 1. Complex urethral catheterization successfully completed. 2. Bedside bladder scanning will be inaccurate in this pt. due to abdominal ascites. Any future need to measure bladder volume should be performed with formal pelvic sonography. (# [id number]) Objective: Vital Signs Temp Pulse Resp BP Pulse Ox 36.7 C 126 H 20 137/90 H 93 10/18/17 16:00 10/18/17 18:34 10/18/17 18:34 10/18/17 18:34 10/18/17 18:34 Laboratory Results 10/18/17 04:30 10/18/17 04:30 10/17/17 10/18/17 10/19/17 05:59 05:59 05:59 Intake Total 1225 2028 Output Total 950 200 100 Balance 275 1828 -100 PT 18.5 SEC (12.0-15.0) H 10/18/17 04:30 INR 1.53 (0.83-1.16) H 10/18/17 04:30 ICD10 Worksheet Patient Problems: Problems Problem Status Onset Nausea and vomiting Acute Shortness of breath Acute Generalized weakness Acute Dehydration Acute Colon cancer Acute Globus sensation Acute
--- NOTE | 2017-10-18 21:22 | GCON ---
[f rep st] CONSULTATION UROLOGY CONSULTATION REFERRING PHYSICIAN: Hospitalist Service. REASON FOR CONSULTATION: Urinary retention, inability to catheterize. HISTORY: This is a 67-year-old gentleman with metastatic colon cancer diagnosed in October 2010, wh o has been receiving chemotherapy. He was admitted with intractable nausea and laryngeal spasms on 12/14. He was apparently doing well from a voiding standpoint until earlier today, at which time he h ad increased difficulty voiding. Bladder scan presumably revealed 800 cc residual. Attempts to plac e a catheter by the nursing staff did not result in significant urine output. I was called to see th e patient as a result. According the patient's , the patient does have a longstanding history of BPH for which he has been on Flomax for quite some time. He has not seen a urologist previously. T o her knowledge, the patient has not had any history of dysuria, gross hematuria, urinary tract infec tions, nor incontinence. PAST MEDICAL HISTORY: Notable for metastatic colon cancer (as noted above), gastroesophageal reflux disease. PAST SURGICAL HISTORY: Lymph node biopsy in March 2016. CURRENT MEDICATIONS: Atorvastatin, baclofen, Dulcolax p.r.n., Lovenox, hydromorphone p.r.n., lactulo se p.r.n., loperamide p.r.n., oxycodone p.r.n., Protonix 40 mg twice daily, tamsulosin 0.4 mg daily, warfarin. ALLERGIES: Lorazepam. FAMILY HISTORY: Not contributory. SOCIAL HISTORY: The patient and his live in the [place] area. He is a former smoker. Denies c urrent alcohol use. His daughter is an skilled nursing case manager at [employer]. REVIEW OF SYSTEMS: Unable to obtain, as the patient is currently sleeping following recent Dilaudid administration. PHYSICAL EXAM: GENERAL: Chronically ill, elderly male, lying supine in bed, in no acute distress. He is arousable, but he is unable to answer questions at this time. VITAL SIGNS: Blood pressure 137 /90, pulse 126, oxygen saturation 93% on room air, respiratory rate 20, temperature 36.7 Celsius. HE ENT: Numerous missing teeth. Otherwise, normocephalic and atraumatic. CHEST: Unlabored respirator y pattern. HEART: Tachycardic. ABBDOMEN: Soft without palpable masses. No obvious organomegaly. There is somewhat of a fluid wave palpable. There is also a periumbilical midline longitudinal surg ical scar. The bladder does not appear to be obviously distended. GENITALIA: Uncircumcised phallus with normal urethral meatus in proper position. Scrotal structures are unremarkable. NEUROLOGIC: He is currently unable to answer questions as a result of narcotics recently administered. VASCULAR: Normal femoral and dorsalis pedis pulses bilaterally. LABORATORY: Pertinent laboratory: Chemistry panel notable for creatinine 0.8, normal electrolytes f rom earlier today. INR today is 1.53. Pertinent radiographic studies: 10/17/[address] scan: By report, notable for significant ascites which is increased compared to an 10/01 study. There is moderate transverse col on and proximal descending colon distention. The kidneys are unremarkable. PROCEDURE: The genital area was sterilely prepped and draped in standard fashion. 20 cc of 2% lidoc mino was placed transurethrally, followed by the administration of a penile clamp for 15 minutes. I then slowly and carefully advanced a 14-Divehi coude tip catheter through the urethra and into the bl adder. There was minimal urine return at this point. However, I was certain that the catheter was i n the bladder. The balloon was inflated, and the catheter was connected to bag drainage. The patien t tolerated the procedure well overall. IMPRESSION: 1. Probable urinary retention with inability to catheterize. Complex urethral catheterization perfo rmed unremarkably this evening. 2. Longstanding history of Benign prostatic hypertrophy, for which the patient is on Flomax. PLAN: 1. Continue indwelling Dunn catheterization. 2. It is highly possible that the bladder scan on this patient will be very inaccurate and prone to false positive results due to his ascites. It is possible the patient may be currently oliguric or a nuric. 3. If there is a need to determine his urine output status by way of bladder measurement, then a for mal sonography should be performed rather than a bedside bladder scan. /[id number]/MODL
[2017-10-18] MEDS: ENOXAPARIN 40 MG/0.4 ML SYR SC SCH (21:23)
[2017-10-18] MEDS: TPN 1 EA BAG IV SCH (21:23)
[2017-10-18] MEDS: LIDOCAINE 5% 1 EA PATCH TD SCH (21:25)
[2017-10-18] MEDS: PATCH REMOVAL 1 EA PATCH TD SCH (21:27)
[2017-10-18] MEDS: SENNOSIDES/DOCUSATE SODIUM TAB PO SCH (21:27)
[2017-10-18] MEDS: LR 1,000 ML IV SCH (23:22)
[2017-10-19] MEDS: HYDROmorphone HCL/NS/PF 0.4 MG/2 ML SYR IVP PRN ×2 (02:10→23:54)
[2017-10-19 04:58] LABS: ADD MORPH? NO; ADD SCAN? YES; ATYPICAL LYMPHOCYTE FLAG 0 (0-99); FRAGMENT RBC FLAG 20 (0-99); HEMATOCRIT 38.3 % (40.0-51.0); HEMOGLOBIN 12.5 g/dL (13.7-17.5); LIPEMIA HEMOLYSIS FLAG 80 (0-99); MEAN CELL HEMOGLOBIN 28.6 pg (27.9-34.1); MEAN CELL HEMOGLOBIN CONCENTR. 32.6 g/dL (32.4-36.7); MEAN CELL VOLUME 87.6 fL (81.5-99.8); MEAN PLATELET VOLUME 11.1 fL (8.7-11.7); PLATELET CLUMPS FLAG 0 (0-99); PLATELET COUNT 233 10^3/uL (150-400); RED BLOOD CELL COUNT 4.37 10^6/uL (4.40-6.38); RED CELL DISTRIBUTION WIDTH 19.9 % (11.5-15.2)
[2017-10-19 05:06] LABS: INR 1.3 (0.83-1.16); PROTIME(PATIENT) 16.4 SEC (12.0-15.0)
[2017-10-19 05:07] LABS: APTT 40.3 SEC (23.0-38.0)
[2017-10-19 05:22] LABS: LEFT SHIFT FLG 300 (0-99)
[2017-10-19 05:31] LABS: ALANINE AMINOTRANSFERASE 27 IU/L (21-72); ALBUMIN 2.5 g/dL (3.5-5.0); ALKALINE PHOSPHATASE 179 IU/L (38-126); ANION GAP 10 mEq/L (8-16); ASPARTATE AMINOTRANSFERASE 16 IU/L (17-59); BILIRUBIN,TOTAL 0.5 mg/dL (0.1-1.4); CALCIUM 8.2 mg/dL (8.5-10.4); CARBON DIOXIDE 25 mEq/l (22-31); CHLORIDE 98 mEq/L (97-110); CREATININE 0.8 mg/dL (0.7-1.3); GLOMERULAR FILTRATION RATE > 60; GLUCOSE 156 mg/dL (70-100); MAGNESIUM 1.9 mg/dL (1.6-2.3); SODIUM 133 mEq/L (134-144); TOTAL PROTEIN 5.4 g/dL (6.3-8.2)
[2017-10-19 05:51] LABS: ADD DIFF? YES; SCAN POSITIVE
[2017-10-19 05:55] LABS: ELLIPTOCYTES 1+; MACROCYTES 1+; MICROCYTES 1+; PLATELET ESTIMATE ADEQUATE (ADEQ); POLYCHROMASIA 1+
[2017-10-19] MEDS: PANTOPRAZOLE SODIUM 40 MG VIAL IVP SCH ×2 (08:30→21:11)
[2017-10-19] MEDS: LIDOCAINE 5% 1 EA PATCH TD SCH (08:31)
[2017-10-19] MEDS: TAMSULOSIN HCL 0.4 MG CAP PO SCH (08:34)
[2017-10-19] MEDS: SENNOSIDES/DOCUSATE SODIUM TAB PO SCH ×2 (08:34→21:16)
[2017-10-19] MEDS: BACLOFEN 10 MG TAB PO PRN ×3 (10:53→21:15)
[2017-10-19] MEDS: LR 1,000 ML IV SCH (13:24)
[2017-10-19] MEDS ORDERED: LIDOCAINE 1% 300 MG/30 ML SDV ONE (14:08)
[2017-10-19] MEDS: OPIUM/BELLADONNA ALKALO SUPP PR PRN ×2 (14:13→21:21)
--- NOTE | 2017-10-19 15:25 | SOAPPROG ---
SOAP Progress Note Assessment/Plan: Assessment: 67 yo man from [facility] w metastatic colon cancer most recently on FOLFIRI + Avastin He presented w intractable nausea/vomiting and diarrhea He is malnourished from chronic GI side effects in relation to therapy Most recent scans show stable disease although CEA is slightly up 1. N/V - on IVF - not complaining of nausea at the moment - TPN 2. hiccups - somewhat improved. 3. Reflux - IV ppi laryngoscope did not show airway compromise agree due to persistent vomiting and reflux may need EGD to rule out infection or ulcerative dz 4. colon cancer - relative stable on current regimen due next week for therapy but may need a delay 5. Diarrhea -improved 6. New RML and RLL low volume PE - on weight based lovenox 7. Ascites - 2L removed afternoon of 19 OCT 2017. 8. Urinary retention - catheter placed by Dr. Cline 9. Tachycardia - required movement to tele Plan: TPN/fluids chemo on hold for now 10/19/17 15:21 Subjective: Feels better today. Some abd pain but in general feels better s/p paracentesis Objective: Vital Signs Temp Pulse Resp BP Pulse Ox 36.6 C 113 H 22 H 134/82 H 94 10/19/17 11:47 10/19/17 11:47 10/19/17 12:38 10/19/17 11:47 10/19/17 11:47 Laboratory Results 10/19/17 04:16 10/19/17 04:16 10/17/17 10/18/17 10/19/17 23:59 23:59 23:59 Intake Total 1725 828 310 Output Total 450 300 300 Balance 1275 528 10 PT 16.4 SEC (12.0-15.0) H 10/19/17 04:16 INR 1.30 (0.83-1.16) H 10/19/17 04:16 Physical Exam - Physical Exam General Appearance: alert, mild distress Respiratory: lungs clear Cardiac/Chest: regular rate, rhythm Abdomen: normal bowel sounds, soft Skin: pallor Neuro/Psych: alert, normal mood/affect ICD10 Worksheet Patient Problems: Problems Problem Status Onset Colon cancer Acute Dehydration Acute Globus sensation Acute Generalized weakness Acute Nausea and vomiting Acute Shortness of breath Acute
[2017-10-19 16:16] LABS: GLUCOSE, PERITONEAL FLUID 31 mg/dL (55-113)
--- NOTE | 2017-10-19 17:05 | HOSPPROG ---
Hospitalist Progress Note Assessment/Plan: * Metastatic colon cancer - liver/peritoneal mets -palliative chemo * Intractable N/V -empiric IV PPI - consider EGD -consider add Carafate * Acute PE -Lovenox - start warfarin * Ascites - US guided paracentesis today * Severe protein calorie malnutrition -TPN * Intractable hiccups due to esophageal irritation -baclofen * Laryngeal spasm due to N/V - recurrent * BPH with possible urinary retention -difficult rodriguez placement - appreciate urology consult -continue Flomax * Toxic/metabolic Encephalopathy - improved * Dysphagia -VFSS in am Subjective: STAT team called last night due to mucuc and recurrent laryngeal spasm and patient unable to breath. Mental status now better, severe pain now from bladder spasms, urine coming around the rodriguez Objective: Vital Signs Temp Pulse Resp BP Pulse Ox 36.8 C 123 H 19 134/82 H 94 10/19/17 15:43 10/19/17 15:43 10/19/17 15:43 10/19/17 11:47 10/19/17 15:43 Laboratory Results 10/19/17 04:16 10/19/17 04:16 10/18/17 10/19/17 10/20/17 05:59 05:59 05:59 Intake Total 2028 250 60 Output Total 200 400 Balance 1828 -150 60 PT 16.4 SEC (12.0-15.0) H 10/19/17 04:16 INR 1.30 (0.83-1.16) H 10/19/17 04:16 d/w Dr. Pantoja - events of last night communicated tele - sinus tachy CXR - negative - Physical Exam Constitutional: no apparent distress, appears nourished, not in pain Cardiovascular: regular rate and rhythym, no murmur, rub, or gallop Respiratory: no respiratory distress, no rales or rhonchi, clear to auscultation Gastrointestinal: normoactive bowel sounds, soft, non-tender abdomen, no palpable masses Skin: no rashes or abrasions, no fluctuance, no induration Neurologic: AAOx3, sensation intact bilaterally Psychiatric: interacting appropriately, not anxious, not encephalopathic, thought process linear ICD10 Worksheet Patient Problems: Problems Problem Status Onset Colon cancer Acute Dehydration Acute Globus sensation Acute Generalized weakness Acute Nausea and vomiting Acute Shortness of breath Acute
[2017-10-19] MEDS: ATORVASTATIN CALCIUM 20 MG TAB PO SCH (17:06)
[2017-10-19] MEDS: WARFARIN SODIUM 5 MG TAB PO SCH (17:14)
[2017-10-19] MEDS: TPN 1 EA BAG IV SCH (21:10)
[2017-10-19] MEDS: PATCH REMOVAL 1 EA PATCH TD SCH (21:11)
[2017-10-19] MEDS: guaiFENesin 600 MG TAB.ER PO SCH (21:15)
[2017-10-19] MEDS: oxyCODONE IR 5 MG TAB PO PRN (23:51)
[2017-10-20 04:20] LABS: INR 1.13 (0.83-1.16); PROTIME(PATIENT) 14.7 SEC (12.0-15.0)
[2017-10-20 04:21] LABS: ADD MORPH? YES; APTT 33.9 SEC (23.0-38.0); ATYPICAL LYMPHOCYTE FLAG 20 (0-99); FRAGMENT RBC FLAG 20 (0-99); HEMOGLOBIN 12.6 g/dL (13.7-17.5); LIPEMIA HEMOLYSIS FLAG 80 (0-99); MEAN CELL HEMOGLOBIN 28.3 pg (27.9-34.1); MEAN CELL HEMOGLOBIN CONCENTR. 32.3 g/dL (32.4-36.7); MEAN CELL VOLUME 87.6 fL (81.5-99.8); MEAN PLATELET VOLUME 10.7 fL (8.7-11.7); PLATELET CLUMPS FLAG 10 (0-99); PLATELET COUNT 219 10^3/uL (150-400); RED BLOOD CELL COUNT 4.45 10^6/uL (4.40-6.38)
[2017-10-20 04:22] LABS: ADD DIFF? YES; ADD SCAN? NO; LEFT SHIFT FLG 300 (0-99); RED CELL DISTRIBUTION WIDTH 20.4 % (11.5-15.2)
[2017-10-20 04:24] LABS: ALANINE AMINOTRANSFERASE 32 IU/L (21-72); ALBUMIN 2.5 g/dL (3.5-5.0); ALKALINE PHOSPHATASE 239 IU/L (38-126); ANION GAP 10 mEq/L (8-16); ASPARTATE AMINOTRANSFERASE 22 IU/L (17-59); BILIRUBIN,TOTAL 0.4 mg/dL (0.1-1.4); CALCIUM 8.3 mg/dL (8.5-10.4); CARBON DIOXIDE 27 mEq/l (22-31); CHLORIDE 99 mEq/L (97-110); CREATININE 0.8 mg/dL (0.7-1.3); GLOMERULAR FILTRATION RATE > 60; GLUCOSE 145 mg/dL (70-100); MAGNESIUM 2.1 mg/dL (1.6-2.3); POTASSIUM 4.1 mEq/L (3.5-5.2); SODIUM 136 mEq/L (134-144); TOTAL PROTEIN 5.2 g/dL (6.3-8.2); TRIGLYCERIDE 73 mg/dL (40-150)
[2017-10-20 05:24] LABS: PLATELET ESTIMATE ADEQUATE (ADEQ)
[2017-10-20 05:27] LABS: ELLIPTOCYTES 1+; MACROCYTES 1+; MICROCYTES 1+; POLYCHROMASIA 1+; TOXIC GRANULATION PRESENT
[2017-10-20] MEDS: oxyCODONE IR 5 MG TAB PO PRN ×3 (06:13→18:35)
[2017-10-20] MEDS: OPIUM/BELLADONNA ALKALO SUPP PR PRN (06:14)
[2017-10-20] MEDS: ENOXAPARIN 80 MG/0.8 ML SYR SC SCH ×2 (10:28→20:51)
[2017-10-20] MEDS: guaiFENesin 600 MG TAB.ER PO SCH ×2 (10:34→20:52)
[2017-10-20] MEDS: PANTOPRAZOLE SODIUM 40 MG VIAL IVP SCH ×2 (10:34→20:51)
[2017-10-20] MEDS: SENNOSIDES/DOCUSATE SODIUM TAB PO SCH ×2 (10:34→20:51)
[2017-10-20] MEDS: BACLOFEN 10 MG TAB PO PRN ×2 (10:35→14:42)
[2017-10-20] MEDS: TAMSULOSIN HCL 0.4 MG CAP PO SCH (10:35)
[2017-10-20] MEDS: LIDOCAINE 5% 1 EA PATCH TD SCH (10:36)
[2017-10-20] MEDS: cefTRIAXone 2 GM in D5W 50 ML IV SCH (10:36)
[2017-10-20] MEDS: ONDANSETRON 4 MG/2 ML VIAL IVP PRN (11:18)
--- NOTE | 2017-10-20 11:39 | ASMTCMCOM ---
CM Note CM Note Notes: Spoke with patient and his Vaishnavi ([phone]), they are amenable to current PT/OT/AED TRAINER reocmmendation of home care. Will add ITEM REPAIR MANAGER/RN as well since feels she may require help bathing patient and he is a chemo patient. Shani at [facility] alerted. Current Case Management Discharge Plan: home with and [facility] Date Signed: 10/20/2017 11:39 AM Electronically Signed By:Clari Chen RN
[2017-10-20] MEDS: WARFARIN SODIUM 5 MG TAB PO SCH (14:39)
[2017-10-20] MEDS: HYDROmorphone HCL/NS/PF 0.4 MG/2 ML SYR IVP PRN (15:46)
--- NOTE | 2017-10-20 16:50 | SOAPPROG ---
SOAP Progress Note Assessment/Plan: Assessment: 1.) Stage IV Colon Carcinoma, with liver and peritoneal involvement on FOLFIRI + Avastin, with acute tx toxicity of N/V/D. improved. 2.) PE - on enoxaparin. Need to determine plan for outpt. management 3.) Urinary retention- on rodriguez cath. Urology input noted. 4.) Vol depletion- continue IVF 5.) Refux esophagitis 6.) Hiccups- on baclofen. Plan: 1.) Continue present management. Pt. improving. Has no worsened sx. today. 2.) Our service will follow. He could be switched to FXa inhibitor once GI tract sx. are diminished. Will determine. 10/20/17 16:49 Subjective: Feeling better, but still bothered by hiccups- feels baclofen does lessen the hiccups. Had only one loose stool today. No new sx. as of today. Objective: VSS, afebrile as noted here. HEENT- anicteric, resolving mucositis. Neck- supple Chest- clear anteriorly CVS- ST, RR Mediport- accessed/NT ABD- soft, BS+, ascites + Rodriguez catheter- urine moderately dark/yellow EXT- thin, no edema skin intact Labs- as noted here: BUN/Cr 15/0.8 Peritoneal fluid- not bacterial peritonitis. Vital Signs Temp Pulse Resp BP Pulse Ox 36.6 C 105 H 16 129/81 H 93 10/20/17 15:12 10/20/17 15:12 10/20/17 15:12 10/20/17 15:12 10/20/17 15:12 Microbiology 10/19/17 12:16 Gram Stain - Final Peritoneal Fluid - Aspirate Laboratory Results 10/20/17 03:18 10/20/17 03:18 10/19/17 10/20/17 10/21/17 05:59 05:59 05:59 Intake Total 250 4016 1625 Output Total 400 1400 500 Balance -150 2616 1125 PT 14.7 SEC (12.0-15.0) 10/20/17 03:18 INR 1.13 (0.83-1.16) 10/20/17 03:18 ICD10 Worksheet Patient Problems: Problems Problem Status Onset Colon cancer Acute Dehydration Acute Globus sensation Acute Generalized weakness Acute Nausea and vomiting Acute Shortness of breath Acute
--- NOTE | 2017-10-20 17:04 | HOSPPROG ---
Hospitalist Progress Note Assessment/Plan: * Metastatic colon cancer - liver/peritoneal mets -palliative chemo * Intractable N/V -empiric IV PPI - consider EGD -consider add Carafate * Acute PE -Lovenox - start Eliquis at discharge * Ascites - s/p US guided paracentesis * SBP -IV ceftriaxone * Severe protein calorie malnutrition -TPN * Intractable hiccups due to esophageal irritation -baclofen * Laryngeal spasm due to N/V - recurrent -swallow okay by VFSS * BPH with possible urinary retention -difficult rodriguez placement - appreciate urology consult -continue Flomax -suspect bladder scan readings due to ascites rather than urinary retention -traumatic rodriguez placement - will leave in for now and allow swelling to decrease * Toxic/metabolic Encephalopathy - improved -does poorly with ativan Subjective: Much better Objective: Vital Signs Temp Pulse Resp BP Pulse Ox 36.6 C 105 H 16 129/81 H 93 10/20/17 15:12 10/20/17 15:12 10/20/17 15:12 10/20/17 15:12 10/20/17 15:12 Microbiology 10/19/17 12:16 Gram Stain - Final Peritoneal Fluid - Aspirate Laboratory Results 10/20/17 03:18 10/20/17 03:18 10/19/17 10/20/17 10/21/17 05:59 05:59 05:59 Intake Total 250 4016 1625 Output Total 400 1400 500 Balance -150 2616 1125 PT 14.7 SEC (12.0-15.0) 10/20/17 03:18 INR 1.13 (0.83-1.16) 10/20/17 03:18 - Physical Exam Constitutional: no apparent distress, appears nourished, not in pain Cardiovascular: regular rate and rhythym, no murmur, rub, or gallop Respiratory: no respiratory distress, no rales or rhonchi, clear to auscultation Gastrointestinal: normoactive bowel sounds, soft, non-tender abdomen, no palpable masses Skin: no rashes or abrasions, no fluctuance, no induration Neurologic: AAOx3, sensation intact bilaterally Psychiatric: interacting appropriately, not anxious, not encephalopathic, thought process linear ICD10 Worksheet Patient Problems: Problems Problem Status Onset Colon cancer Acute Dehydration Acute Globus sensation Acute Generalized weakness Acute Nausea and vomiting Acute Shortness of breath Acute
[2017-10-20] MEDS: ATORVASTATIN CALCIUM 20 MG TAB PO SCH (18:11)
[2017-10-20] MEDS: LIDOCAINE 2% VISCOUS 15 ML UDCUP PO PRN (18:34)
[2017-10-20] MEDS: TPN 1 EA BAG IV SCH (20:51)
[2017-10-20] MEDS: PATCH REMOVAL 1 EA PATCH TD SCH (20:52)
[2017-10-21 04:31] LABS: INR 1.89 (0.83-1.16); PROTIME(PATIENT) 21.8 SEC (12.0-15.0)
[2017-10-21] MEDS: oxyCODONE IR 5 MG TAB PO PRN (08:21)
[2017-10-21] MEDS: BACLOFEN 10 MG TAB PO PRN (08:22)
[2017-10-21] MEDS: TAMSULOSIN HCL 0.4 MG CAP PO SCH (08:23)
[2017-10-21] MEDS: ENOXAPARIN 80 MG/0.8 ML SYR SC SCH ×2 (08:23→20:14)
[2017-10-21] MEDS: PANTOPRAZOLE SODIUM 40 MG VIAL IVP SCH (08:23)
[2017-10-21] MEDS: guaiFENesin 600 MG TAB.ER PO SCH ×2 (08:23→20:14)
[2017-10-21] MEDS: SENNOSIDES/DOCUSATE SODIUM TAB PO SCH ×2 (08:23→21:38)
[2017-10-21] MEDS: cefTRIAXone 2 GM in D5W 50 ML IV SCH (08:26)
[2017-10-21] MEDS: LIDOCAINE 5% 1 EA PATCH TD SCH (08:26)
[2017-10-21] MEDS: HYDROmorphone HCL/NS/PF 0.4 MG/2 ML SYR IVP PRN ×3 (08:30→15:49)
--- NOTE | 2017-10-21 11:16 | CPEKG ---
Heart Rate: 106 RR Interval: 566 P-R Interval: 140 QRSD Interval: 92 QT Interval: 340 QTC Interval: 452 P Winston: 46 QRS Winston: 13 T Wave Winston: 6 EKG Severity - OTHERWISE NORMAL ECG - EKG Impression: SINUS TACHYCARDIA Electronically Signed By: Robert Mendoza 22-Oct-2017 23:10:25
[2017-10-21] MEDS: LIDOCAINE 2% VISCOUS 15 ML UDCUP PO PRN (11:44)
--- NOTE | 2017-10-21 11:45 | HOSPPROG ---
Hospitalist Progress Note Assessment/Plan: 67-year-old admitted with intractable nausea vomiting after initiating chemotherapy for stage IV colon cancer. and found to have a small volume pulmonary embolus. Continues to have difficulty tolerating oral intake and is on TPN. Today he is complaining of some sharp right-sided chest pain which has been present before but slightly worse this morning. * chest pain in the setting of small volume pulmonary embolus, unclear etiology possibly related to esophagitis with referred pain * Chest x-ray done no acute changes * EKG done personally reviewed no ischemia * Troponin negative * Will monitor symptoms for now and treat with IV and oral pain medication * Metastatic colon cancer - liver/peritoneal mets * Palliative chemo * Followed by Oncology * Intractable N/V * empiric IV PPI - consider EGD * consider add Carafate * Acute PE * Lovenox - start Eliquis at discharge * Ascites - s/p US guided paracentesis with evidence of SBP * IV ceftriaxone * Severe protein calorie malnutrition * TPN, trying to transition to oral intake which has been limited to patient's reluctance to eat due to pain and esophagitis * Intractable hiccups due to esophageal irritation * baclofen * Laryngeal spasm due to N/V - recurrent * swallow okay by VFSS * * BPH with possible urinary retention * difficult rodriguez placement - appreciate urology consult * continue Flomax * suspect bladder scan readings due to ascites rather than urinary retention * traumatic rodriguez placement - will leave in for now and allow swelling to decrease * * Toxic/metabolic Encephalopathy - improved * does poorly with ativan Dispo: Pt unable to tolerate PO due to severe esophageal pain from intractable n/v from chemo and likely mucositis. Currently on TPN, As soon as he can tolerate, PO and keep hydrated and nourished he can go home. Subjective: Patient new to ct and chart reviewed Objective: Vital Signs Temp Pulse Resp BP Pulse Ox 36.7 C 106 H 20 134/75 H 92 10/21/17 11:23 10/21/17 11:23 10/21/17 11:23 10/21/17 11:23 10/21/17 11:23 Microbiology 10/20/17 14:30 Gastrointestinal Tract Panel (PCR) - Final Stool No Organism Detected 10/19/17 12:16 Gram Stain - Final Peritoneal Fluid - Aspirate Laboratory Results 10/20/17 03:18 10/20/17 03:18 10/20/17 10/21/17 10/22/17 05:59 05:59 05:59 Intake Total 4016 2581 Output Total 1400 1450 Balance 2616 1131 PT 21.8 SEC (12.0-15.0) H 10/21/17 03:55 INR 1.89 (0.83-1.16) H 10/21/17 03:55 - Physical Exam Constitutional: chronically ill appearing, uncomfortable Eyes: PERRL Ears, Nose, Mouth, Throat: moist mucous membranes Cardiovascular: regular rate and rhythym, systolic murmur Respiratory: no respiratory distress Gastrointestinal: normoactive bowel sounds, tenderness Genitourinary: no bladder fullness, rodriguez in urethra Skin: No normal color (Pale) Musculoskeletal: generalized weakness Psychiatric: interacting appropriately, anxious ICD10 Worksheet Patient Problems: Problems Problem Status Onset Nausea and vomiting Acute Shortness of breath Acute Generalized weakness Acute Dehydration Acute Colon cancer Acute Globus sensation Acute
[2017-10-21] MEDS ORDERED: CEPACOL LOZENGE PO PRN (17:10)
[2017-10-21] MEDS: SUCRALFATE 1 GM/10 ML UDCUP PO SCH ×2 (17:23→20:14)
[2017-10-21] MEDS: ATORVASTATIN CALCIUM 20 MG TAB PO SCH (17:23)
[2017-10-21] MEDS ORDERED: LIDOCAINE 2% VISCOUS 15 ML UDCUP PO PRN (17:58)
[2017-10-21] MEDS: PANTOPRAZOLE SODIUM 40 MG TAB PO SCH (20:14)
[2017-10-21] MEDS: TPN 1 EA BAG IV SCH (20:14)
[2017-10-21] MEDS: chlorproMAZINE HCL 25 MG TAB PO PRN (20:14)
[2017-10-21] MEDS: ONDANSETRON 4 MG/2 ML VIAL IVP PRN (20:28)
[2017-10-21] MEDS: PATCH REMOVAL 1 EA PATCH TD SCH (21:38)
[2017-10-22] MEDS: chlorproMAZINE HCL 25 MG TAB PO PRN ×2 (05:55→12:53)
[2017-10-22 06:00] LABS: INR 1.8 (0.83-1.16)
[2017-10-22 06:01] LABS: ANION GAP 9 mEq/L (8-16); CALCIUM 7.5 mg/dL (8.5-10.4); CARBON DIOXIDE 26 mEq/l (22-31); CHLORIDE 101 mEq/L (97-110); CREATININE 0.8 mg/dL (0.7-1.3); GLOMERULAR FILTRATION RATE > 60; GLUCOSE 146 mg/dL (70-100); MAGNESIUM 2.1 mg/dL (1.6-2.3); POTASSIUM 3.5 mEq/L (3.5-5.2); SODIUM 136 mEq/L (134-144)
--- NOTE | 2017-10-22 08:23 | HOSPPROG ---
Hospitalist Progress Note Assessment/Plan: #Small PE: Lovenox, Eliquis at DC #Metastatic colon cancer: palliative chemo #Chest pain: negative trop, EKG and CXR #Severe protein caloric malnutrition: TPN #SBP: Day 3/5 CTX, dose albumin 1g/kg today #Laryngeal spasms: VFSS okay #Intractable N/V: baclofen, viscous lidocaine #Hiccups: increasse Thorazine to QID, not using much Zofran. Qtc 450 #BPH with urinary retention: rodriguez placed by urology; will DC today. Flomax # Diet: ADAT, TPN #DVT ppx: Lovenox #Disp: cont inpt admission for IV TPN, antiemetics Subjective: min nausea today. Still having hiccups Objective: Vital Signs Temp Pulse Resp BP Pulse Ox 36.7 C 101 H 27 H 137/80 H 91 L 10/22/17 08:00 10/22/17 08:00 10/22/17 08:00 10/22/17 08:00 10/22/17 08:00 Microbiology 10/19/17 12:16 Gram Stain - Final Peritoneal Fluid - Aspirate Laboratory Results 10/20/17 03:18 10/22/17 05:30 10/21/17 10/22/17 10/23/17 05:59 05:59 05:59 Intake Total 2581 2101 Output Total 1450 950 Balance 1131 1151 PT 21.0 SEC (12.0-15.0) H 10/22/17 05:30 INR 1.80 (0.83-1.16) H 10/22/17 05:30 - Physical Exam Constitutional: no apparent distress Eyes: PERRL Ears, Nose, Mouth, Throat: moist mucous membranes, hearing normal Cardiovascular: regular rate and rhythym, no murmur, rub, or gallop Respiratory: no respiratory distress, no rales or rhonchi Gastrointestinal: normoactive bowel sounds, soft, non-tender abdomen Genitourinary: no bladder fullness, rodriguez in urethra Skin: warm Musculoskeletal: full muscle strength Neurologic: AAOx3, CN II-XII Intact Psychiatric: interacting appropriately ICD10 Worksheet Patient Problems: Problems Problem Status Onset Colon cancer Acute Dehydration Acute Globus sensation Acute Generalized weakness Acute Nausea and vomiting Acute Shortness of breath Acute
[2017-10-22] MEDS: LIDOCAINE 5% 1 EA PATCH TD SCH (08:29)
[2017-10-22] MEDS: ONDANSETRON 4 MG/2 ML VIAL IVP PRN (08:31)
[2017-10-22] MEDS: ENOXAPARIN 80 MG/0.8 ML SYR SC SCH ×2 (08:34→21:07)
[2017-10-22] MEDS: guaiFENesin 600 MG TAB.ER PO SCH ×2 (08:44→21:06)
[2017-10-22] MEDS: BACLOFEN 10 MG TAB PO PRN (08:45)
[2017-10-22] MEDS: TAMSULOSIN HCL 0.4 MG CAP PO SCH (08:46)
[2017-10-22] MEDS: PANTOPRAZOLE SODIUM 40 MG TAB PO SCH ×2 (08:46→21:06)
[2017-10-22] MEDS: SUCRALFATE 1 GM/10 ML UDCUP PO SCH ×4 (08:47→20:52)
[2017-10-22] MEDS ORDERED: ALBUMIN 25% 100 ML IV ONE ×2 (10:13→10:15)
[2017-10-22] MEDS ORDERED: ALBUMIN 25% 50 ML IV ONE (10:15)
[2017-10-22] MEDS: SENNOSIDES/DOCUSATE SODIUM TAB PO SCH ×2 (10:17→21:08)
--- NOTE | 2017-10-22 13:28 | SOAPPROG ---
SOAP Progress Note Assessment/Plan: Assessment: 1.) Stage IV Colon Carcinoma, with liver and peritoneal involvement on FOLFIRI + Avastin, with acute tx toxicity of N/V/D. improved. 2.) PE - on enoxaparin. Need to determine plan for outpt. management. Suggest enoxaparin until it is clear his N/V has resolved, then switch to either Eliquis/Xarelto/Pradaxa- perhaps determined by Pharmacy tier benefits/ preference of insurance plan. 3.) Urinary retention- on rodriguez cath. Urology input noted. 4.) Vol depletion- continue IVF 5.) Refux esophagitis 6.) Hiccups- on baclofen. 7.) Further Colon Cancer Tx dependent on discharge and re-evaluation in outpt. office - [facility] [address]. Plan: 1.) Continue present management. Pt. improving. Has no worsened sx. today. 2.) Our service will follow. He could be switched to FXa inhibitor once GI tract sx. are diminished. 3.) Taper TPN over the next 24 hours and monitor for caloric intake and N/V/D. 10/22/17 13:30 Subjective: Taking in food a bit better today, but had significant volume of emesis last evening. Has had two loose stools in the past 24 hours. No new sx. No resp. sx. Objective: VSS, afebrile, Sitting upright in chair at bedside. HEENT- anicteric, no oral lesions, Neck supple Chest- Clear, without pleural friction rub, nonlabored, hyperinflated CVS- ST, RR, no S3, S4 ABD- soft, NT, BS+ EXT- no edema, skin intact. Labs as noted here: PLT 219 WBC 3.64 Glu 146 Vital Signs Temp Pulse Resp BP Pulse Ox 36.7 C 109 H 20 122/78 H 95 10/22/17 11:50 10/22/17 11:50 10/22/17 11:50 10/22/17 11:50 10/22/17 11:50 Microbiology 10/19/17 12:16 Gram Stain - Final Peritoneal Fluid - Aspirate Laboratory Results 10/20/17 03:18 10/22/17 05:30 10/21/17 10/22/17 10/23/17 05:59 05:59 05:59 Intake Total 2581 2101 300 Output Total 1450 356 250 Balance 1131 1151 50 PT 21.0 SEC (12.0-15.0) H 10/22/17 05:30 INR 1.80 (0.83-1.16) H 10/22/17 05:30 ICD10 Worksheet Patient Problems: Problems Problem Status Onset Colon cancer Acute Dehydration Acute Globus sensation Acute Generalized weakness Acute Nausea and vomiting Acute Shortness of breath Acute
[2017-10-22] MEDS: ATORVASTATIN CALCIUM 20 MG TAB PO SCH (17:56)
--- NOTE | 2017-10-22 18:05 | CPEKG ---
Heart Rate: 123 RR Interval: 488 P-R Interval: 136 QRSD Interval: 98 QT Interval: 320 QTC Interval: 458 P Aristes: 48 QRS Aristes: 13 T Wave Aristes: 74 EKG Severity - ABNORMAL ECG - EKG Impression: SINUS TACHYCARDIA EKG Impression: PROBABLE LVH WITH SECONDARY REPOL ABNRM Electronically Signed By: Robert Mendoza 22-Oct-2017 23:10:14
[2017-10-22] MEDS ORDERED: NS 250 ML IV ONE (18:16)
[2017-10-22] MEDS: TPN 1 EA BAG IV SCH (20:52)
[2017-10-22] MEDS ORDERED: MELATONIN 3 MG TAB PO SCH (21:00)
[2017-10-22] MEDS: oxyCODONE IR 5 MG TAB PO PRN (21:07)
[2017-10-22] MEDS: PATCH REMOVAL 1 EA PATCH TD SCH (21:12)
[2017-10-23 05:19] LABS: HEMATOCRIT 38.4 % (40.0-51.0); HEMOGLOBIN 11.9 g/dL (13.7-17.5); MEAN CELL HEMOGLOBIN 27.2 pg (27.9-34.1); MEAN CELL VOLUME 87.7 fL (81.5-99.8); RED BLOOD CELL COUNT 4.38 10^6/uL (4.40-6.38)
[2017-10-23 05:29] LABS: INR 1.29 (0.83-1.16); PROTIME(PATIENT) 16.3 SEC (12.0-15.0); RED CELL DISTRIBUTION WIDTH 20.2 % (11.5-15.2)
[2017-10-23] MEDS: SUCRALFATE 1 GM/10 ML UDCUP PO SCH ×2 (07:54→12:11)
[2017-10-23] MEDS: ENOXAPARIN 80 MG/0.8 ML SYR SC SCH (09:49)
[2017-10-23] MEDS: LIDOCAINE 5% 1 EA PATCH TD SCH (09:53)
[2017-10-23] MEDS: SENNOSIDES/DOCUSATE SODIUM TAB PO SCH (09:53)
[2017-10-23] MEDS: PANTOPRAZOLE SODIUM 40 MG TAB PO SCH (09:53)
[2017-10-23] MEDS: TAMSULOSIN HCL 0.4 MG CAP PO SCH (09:53)
[2017-10-23] MEDS: guaiFENesin 600 MG TAB.ER PO SCH (09:53)
--- NOTE | 2017-10-23 10:05 | HOSPPROG ---
Hospitalist Progress Note Assessment/Plan: #Small PE: Lovenox 1.5mg/kg at DC #Tachycardia: sinus tach on EKG. Improved with mild fluids. Deconditioning may be contributing. #Metastatic colon cancer: palliative chemo #Chest pain: negative trop, EKG and CXR #Severe protein caloric malnutrition: TPN stopped, now eating #SBP: Day 4/5 CTX, dose albumin 1g/kg yesterday. Cipro at DC #Laryngeal spasms: VFSS okay #Intractable N/V: baclofen, viscous lidocaine #Hiccups: increasse Thorazine to QID, not using much Zofran. Qtc 450 #BPH with urinary retention: rodriguez placed by urology; will DC today. Flomax # Diet: ADAT, #DVT ppx: Lovenox #Disp: DC today Subjective: feeling better. No hiccups. No CP or SOB Objective: Vital Signs Temp Pulse Resp BP Pulse Ox 36.4 C 109 H 16 151/40 H 93 10/23/17 08:00 10/23/17 08:00 10/23/17 08:00 10/23/17 08:00 10/23/17 08:00 Microbiology 10/19/17 12:16 Gram Stain - Final Peritoneal Fluid - Aspirate Body Fluid Culture - Final Laboratory Results 10/23/17 03:58 10/22/17 05:30 10/22/17 10/23/17 10/24/17 05:59 05:59 05:59 Intake Total 2101 1826 Output Total 950 840 Balance 1151 986 PT 16.3 SEC (12.0-15.0) H 10/23/17 03:58 INR 1.29 (0.83-1.16) H 10/23/17 03:58 - Physical Exam Constitutional: no apparent distress Eyes: PERRL Ears, Nose, Mouth, Throat: moist mucous membranes, hearing normal Cardiovascular: regular rate and rhythym, other (port in place without signs of infection) Respiratory: no respiratory distress Gastrointestinal: normoactive bowel sounds, soft, non-tender abdomen Genitourinary: No no bladder fullness, No rodriguez in urethra Skin: warm Musculoskeletal: full muscle strength Neurologic: AAOx3, CN II-XII Intact Psychiatric: interacting appropriately ICD10 Worksheet Patient Problems: Problems Problem Status Onset Nausea and vomiting Acute Shortness of breath Acute Generalized weakness Acute Dehydration Acute Colon cancer Acute Globus sensation Acute
--- NOTE | 2017-10-23 14:30 | SOAPPROG ---
SOAP Progress Note Assessment/Plan: Assessment: 1.) Stage IV Colon Carcinoma, with liver and peritoneal involvement on FOLFIRI + Avastin, with acute tx toxicity of N/V/D. improved. 2.) PE - on enoxaparin. Need to determine plan for outpt. management. Suggest enoxaparin as home anticoagulant. Medardo's is comfortable with SQ admin from prior admin on other family members. Enox. 1/5 mg/KG QD x 3-6 mos., TBD. 3.) Urinary retention- on rodriguez cath. Urology input noted. 4.) Vol depletion- continue IVF 5.) Refux esophagitis 6.) Hiccups- on baclofen. 7.) Further Colon Cancer Tx dependent on discharge and re-evaluation in outpt. office - [facility]. Plan: 1.) Agree with D/C TPN and discharge to home. 2.) Enoxaparin SQ as above. 3.) Pt to continue follow up with Dr. Noguera as is discussed today with Medardo and his . 10/23/17 14:30 Subjective: Feeling much better and taking in significant diet without N/V/D. No GI distress. No new sx. Objective: Pt seen in bedside chair, alert, conversant,and in good spirits. His is at the bedside. VSS, Afebrile, as noted here HEENT- anicteric, oral mucositis is improved. Neck- supple Chest- clear anteriorly Mediport- accessed CVS- RSR, no extra HS ABD- soft, NT, no mass or HSM. BS + EXT- minimal edema, skin intact Labs as noted here: Vital Signs Temp Pulse Resp BP Pulse Ox 36.4 C 106 H 18 139/85 H 93 10/23/17 11:23 10/23/17 11:23 10/23/17 11:23 10/23/17 11:23 10/23/17 11:23 Microbiology 10/19/17 12:16 Gram Stain - Final Peritoneal Fluid - Aspirate Body Fluid Culture - Final Laboratory Results 10/23/17 03:58 10/22/17 05:30 10/22/17 10/23/17 10/24/17 05:59 05:59 05:59 Intake Total 2101 1826 200 Output Total 950 840 350 Balance 1151 986 -150 PT 16.3 SEC (12.0-15.0) H 10/23/17 03:58 INR 1.29 (0.83-1.16) H 10/23/17 03:58 ICD10 Worksheet Patient Problems: Problems Problem Status Onset Colon cancer Acute Dehydration Acute Globus sensation Acute Generalized weakness Acute Nausea and vomiting Acute Shortness of breath Acute
[2017-10-23 14:55] VITALS: BP 144/87; PULSE 115; RESP 20; TEMP 98.3; O2SAT 94
--- NOTE | 2017-10-23 15:05 | PDIAF ---
- Diagnosis Diagnosis: Pulmonary embolism Code Status: Full Code - Medication Management Discharge Medications: Medications to Continue on Transfer Tamsulosin HCl [Flomax 0.4 MG (*)] 0.4 mg PO DAILY 07/20/17 [Last Taken 10/13/17 ] Pantoprazole Sodium [Protonix 40mg (*)] 40 mg PO DAILY 07/21/17 [Last Taken ] Atorvastatin Calcium [Lipitor 20 mg (*)] 20 mg PO DAILY18 10/14/17 [Last Taken 10/13/17] Dexamethasone [Decadron 4 MG (*)] 4 mg PO Q8HRS PRN 10/14/17 [Last Taken ] Herbals/Supplements -Info Only 1 ea PO DAILY 10/14/17 [Last Taken Unknown] Ondansetron HCl [Zofran] 4 mg PO Q8HRS PRN 10/14/17 [Last Taken 10/14/17] Prochlorperazine Maleate [Compazine 10mg (*)] 10 mg PO Q6HRS PRN 10/14/17 [Last Taken 10/13/17] morphINE [Roxanol Solution 20 mg/ml 30 ml] 0.25 - 0.5 ml PO Q3HRS PRN 10/14/17 [ Last Taken 10/13/17 0.4 ml] Ciprofloxacin [Cipro] 500 mg PO BID 1 Days #2 tab 10/23/17 [Last Taken Unknown] Enoxaparin [Lovenox 100 MG (*)] 100 mg SQ DAILY #30 syr 10/23/17 [Last Taken Unknown] Pantoprazole Sodium [Protonix 40mg (*)] 40 mg PO DAILY #30 tab 10/23/17 [Last Taken Unknown] chlorproMAZINE HCL [Thorazine (*)] 25 mg PO QID PRN #30 tab 10/23/17 [Last Taken Unknown] Discharge Medications: Refer to the Discharge Home Medication list for PRN reason. - Orders Services needed: Home Care, Registered Nurse, Certified Health Data Analyst, Physical Therapy, Occupational Therapy Home Care Face to Face: I certify that this patient was under my care and that I had the required [id number] encounter meeting the encounter requirements on the discharge day. My findings support the fact that the patient is homebound as defined in Home Care Face to Face Continued: CMS Chapter 7 Medicare Benefits Manual 30.1.1 , The condition of the patient is such that there exists a normal inability to leave home and consequently, leaving home would require a considerable and taxing effort. Diet Texture: Regular Texture Diet, Thin Liquids - Follow Up Care Current Providers and Referrals: Shae Noguera MD [Medical Doctor] - NONE *PRIMARY CARE P,. [Primary Care Provider] - As per Instructions
[2017-10-23] MEDS: chlorproMAZINE HCL 25 MG TAB PO PRN (15:33)
--- NOTE | 2017-10-23 16:07 | ASMTCMCOM ---
CM Note CM Note Notes: CM spoke w/ Dr. Santos regarding d/c POC. Dr. Santos would like to have pt to have a palliative. CM spoke w/ regarding palliative and she would like a referral made to [facility]. CM sent referral to [facility] and explained the situation. CM also provided w/ a list of other palliative options. CM available for changes. Plan: [facility] w/ palliative consult Date Signed: 10/23/2017 04:07 PM Electronically Signed By:CARMEL Batista
--- NOTE | 2017-10-23 19:45 | GDS ---
[f rep st] DISCHARGE SUMMARY DISCHARGE DIAGNOSES: 1. Metastatic stage IV colon cancer with liver and peritoneal involvement. 2. Pulmonary embolism. 3. Urinary retention. 4. Reflux esophagitis, hiccups. 5. Severe protein caloric malnutrition. 6. Tachycardia. 7. Chest pain. 8. Laryngeal spasm. 9. Spontaneous bacterial peritonitis. 10. Ascites. HISTORY OF PRESENT ILLNESS: A 67-year-old male with history of stage IV colon cancer with liver and peritoneal involvement who received chemotherapy 2016, and presented with nausea, vomiting, and diarrhea. He had not been able to keep anything down since the last cycle of his treatment. Denies hematemesis. He describes the vomitus as mucousy. Also reporting right-sided chest pain with shortness of breath, which really prompted his visit to the emergency room. CTA 10/16/2017, showed PE in the right middle and lower lobes. HOSPITAL COURSE BY PROBLEM: 1. Metastatic colon cancer: Primary oncologist is Dr. Noguera. Last received chemo 10/08/2017. Most recent scan showed stable disease, though his CEA was slightly up. They will defer further chemotherapy until this acute illness is resolved. 2. Nausea, vomiting: Secondary to chemotherapy. This was very difficult to manage in the hospital. It was noted that Ativan made him very somnolent and confused, thus this was added to his allergy list. He can continue Zofran at home. 3. Intractable hiccups: Again, very bothersome and very difficult to treat here. He has had the best response to Thorazine, which will continue at home. 4. Reflux: Continue proton pump inhibitor. 5. Diarrhea, resolved, secondary to chemotherapy. 6. New right middle and right lower lobe pulmonary embolism. Dr. Vogel recommends 1.5 mcg/kg Lovenox given he will need serial paracentesis as an outpatient. 7. Acute left upper quadrant pain: Initially thought secondary to urinary retention. Paracentesis revealed a spontaneous bacterial peritonitis. He was treated with intravenous ceftriaxone and weight-based albumin on days 1 and 3. He will complete a total of 5 days. We will transition to ciprofloxacin for 1 more day. 8. Severe protein caloric malnutrition. This was secondary to gastrointestinal side effects. He was treated with TPN while here. He is now tolerating some soft foods. Advance as tolerated at home. 9. Deconditioning: The patient will go home with Home Care with Physical Therapy/Occupational Therapy, Registered Nurse and Tile Presser. 10. Goals: I recommended outpatient Palliative Care and they agree. CM will schedule. DISPOSITION: Patient is stable for discharge home with his . NEW MEDICATIONS: 1. Thorazine p.r.n. for hiccups. 2. Lovenox 100 mg daily. 3. Ciprofloxacin. FOLLOWUP: Dr. Noguera. Time spent on DC 50 min counseling patient and on medications and Palliative Care /[id number]/MODL MTDD
--- NOTE | 2017-10-24 16:49 | ASDISCHSUM ---
Discharge Information Plan Status:Home with Home Health Medically Cleared to Leave:10/22/2017 Discharge Date:10/23/2017 04:43 PM D/C Disposition: ADT D/C Disposition:Home, Routine, Self-Care Projected Discharge Date:10/23/2017 12:00 AM Transportation at D/C: Discharge Delay Reason: Follow-Up Date:10/23/2017 12:00 AM Discharge Slot: Final Diagnosis: Placement Information Referral Type:*Home Health Care Services Referral ID:[id number] Provider Name:[facility] Care [address] [address] Address 2: City:[place] Selection Factors: State:[place] Referral Type:*Hospice Referral ID:[id number] Provider Name:[facility] ([facility]) Address 1:[address] Address 2: City:[place] Selection Factors: State:[place] Patient Contact Information Contact Name:VINICIUS Relationship: Address:[address] Work Phone: [facility]:[place] Alternate Phone: [facility]/Zip Code:[place] [address] Email: Financial Information Financial Class: Primary Plan Desc:MEDICARE INPATIENT Primary Plan Number:[id number] Secondary Plan Desc:AAR/MDR SUPPLEMENT Secondary Plan Number:[id number] Assessment Information [facility] CM Progress Note CM Note CM Note Notes: Pt with colon ca admitted for dehydration and poor oral intake. Pt currently on TPN but per Dr Benitez, he will DC once he can eat. Pt will likely have no other DC needs. Date Signed: 10/17/2017 04:19 PM Electronically Signed By:Savanna Valdez LCSW [facility] CM Progress Note CM Note CM Note Notes: Spoke with patient and his Vaishnavi ([phone]), they are amenable to current PT/OT/HEARING SPECIALIST reocmmendation of home care. Will add WHEELCHAIR VAN OPERATOR FIRST RESPONDER/RN as well since feels she may require help bathing patient and he is a chemo patient. Shani at [facility] alerted. Current Case Management Discharge Plan: home with and [facility] Date Signed: 10/20/2017 11:39 AM Electronically Signed By:Clari Chen RN Case Management Discharge Plan Note Case Management Discharge Discharge Order Complete? Answers: Yes Patient to Obtain Answers: via Family Medications Transportation Arranged Answers: Family/Friends EMTALA Complete Answers: No Case Management Transport Answers: No Form Complete Faxed Final Orders Answers: Yes Family Notified Answers: Yes Discharge Comments Notes: Pt is being discharged today w/ [facility]; RN, PT, OT, WHEELCHAIR VAN OPERATOR FIRST RESPONDER. CM notified [facility]. provided HEATHER Baldwin w/ phone number to give report. CM available for changes. Plan: [facility] Date Signed: 10/23/2017 03:03 PM Electronically Signed By:CARMEL Batista [facility] CM Progress Note CM Note CM Note Notes: CM spoke w/ Dr. Santos regarding d/c POC. Dr. Santos would like to have pt to have a palliative. CM spoke w/ regarding palliative and she would like a referral made to [facility]. CM sent referral to [facility] and explained the situation. CM also provided w/ a list of other palliative options. CM available for changes. Plan: [facility] HC w/ palliative consult Date Signed: 10/23/2017 04:07 PM Electronically Signed By:CARMEL Batista Intervention Information Intervention Type:*Incorrect Registration Date of Service:10/14/2017 04:51 PM Patient Type:Observation Staff Member:HEATHER Sharp, Cherise Hours: Discipline: Severity: Comment: Intervention Type:*IM-Signed Date of Service:10/23/2017 03:30 PM Patient Type:Inpatient Staff Member:Karena Boykin Hours: Discipline: Severity: Comment:
== END 2017-10-23 16:43 | disposition home or self-care (01) | DRG 391 ==
LOC: F1N 14:19 → OBSVTOIN 14:46 → F2W 10-18 23:41
PROVIDERS: ADMIT Family Medicine; ATTEND Family Medicine
PROC: 0T9 Urinary System, Drainage (ICD-10-PCS; principal; 2017-10-18)
PROC: 0W9G3ZX Drainage of Peritoneal Cavity, Percutaneous Approach, Diagnostic (ICD-10-PCS; 2017-10-19)
DX: R11.2 Nausea with vomiting, unspecified (principal); I26.99 Other pulmonary embolism without acute cor pulmonale; E43 Unspecified severe protein-calorie malnutrition; K65.2 Spontaneous bacterial peritonitis; C18.9 Malignant neoplasm of colon, unspecified; R18.0 Malignant ascites; T45.1X5A Adverse effect of antineoplastic and immunosuppressive drugs, initial encounter; E86.0 Dehydration; R00.0 Tachycardia, unspecified; R07.9 Chest pain, unspecified; J38.5 Laryngeal spasm; R06.6 Hiccough; R19.7 Diarrhea, unspecified; K21.0 Gastro-esophageal reflux disease with esophagitis; N40.1 Benign prostatic hyperplasia with lower urinary tract symptoms; R33.9 Retention of urine, unspecified; Z87.891 Personal history of nicotine dependence
CPT/HCPCS: 92523-GN; 92526-GN; 92610-GN; 92611-GN; 96374; 97116-GP; 97161-GP; 97164-GP; 97165-GO; 97168-GO; 97530-GP; 97535-GO; G8978-GP-CI; G8978-GP-CJ; G8979-GP-CI; G8980-GP-CI; G8987-GO-CI; G8988-GO-CI; G8989-GO-CI; G8996-GN-CJ; G8997-GN-CI; G9171-GN-CK; G9173-GN-CK; J0696; J1170; J1200; J1642; J1650; J2405; J2469; J2550; P9047; Q9967

== ENCOUNTER 2017-10-29 14:02 | Inpatient (IN) | payer OTHER, MEDICARE ==
--- NOTE | 2017-10-29 14:13 | CPEKG ---
Heart Rate: 121 RR Interval: 496 P-R Interval: 128 QRSD Interval: 98 QT Interval: 336 QTC Interval: 477 P [place]on: 67 QRS [place]: 40 T Wave [place]: 63 EKG Severity - BORDERLINE ECG - EKG Impression: SINUS TACHYCARDIA EKG Impression: BORDERLINE PROLONGED QT INTERVAL Electronically Signed By: Rafael Zimmer 29-Oct-2017 15:14:58
[2017-10-29] MEDS ORDERED: NS 1,000 ML IV ONE (14:25)
--- NOTE | 2017-10-29 14:25 | EDPHY ---
H & P Stated Complaint: CP, SOB and anorexia today, stage III colon CA, has R PEs Time Seen by Provider: 10/29/17 14:24 HPI/ROS: CHIEF COMPLAINT: Dehydration, inability to eat or drink HISTORY OF PRESENT ILLNESS: The patient has a history of metastatic colon cancer. He presents to the ED with complaints of dehydration, inability to eat or drink with a 10 lb weight loss over the past week. The patient had been hospitalized last week and received TPN for 6 days. He was discharged home after he felt better. The patient denies any recent fall or trauma. The patient denies any acute complaints of pain. The patient is currently receiving Lovenox for treatment of a subsegmental pulmonary embolism. The patient is interested in pursuing additional options to maintain his hydration is an outpatient including possible TPN therapy versus PEG tube placement. They had plan to discuss this with his regular oncologist Dr. Noguera next week. REVIEW OF SYSTEMS: A comprehensive 10 point review of systems is otherwise negative aside from elements mentioned in the history of present illness. Source: Patient - Personal History Current Tetanus/Diphtheria Vaccine: Yes - Medical/Surgical History Hx Asthma: No Hx Chronic Respiratory Disease: No Hx Diabetes: No Hx Cardiac Disease: No Hx Renal Disease: No Hx Cirrhosis: No Hx Alcoholism: No Hx HIV/AIDS: No Hx Splenectomy or Spleen Trauma: No Other PMH: Past medical history: Colorectal cancer, hyperlipidemia, gastroesophageal reflux, BPH - Social History Smoking Status: Former smoker - Physical Exam Exam: General Appearance: Thin male, cachectic, no acute distress Eyes: Pupils equal and round no pallor or injection ENT, Mouth: Mucous membranes moist Respiratory: There are no retractions, lungs are clear to auscultation Cardiovascular: Regular rate and rhythm Gastrointestinal: Generalized abdominal tenderness, no appreciable ascites Neurological: A&O, normal motor function, normal sensory exam, normal cranial nerves Skin: Warm and dry, no rashes Musculoskeletal: Neck is supple nontender Extremities: symmetrical, full range of motion Psychiatric: Patient is oriented X 3, there is no agitation Constitutional: Initial Vital Signs Temperature (C) 35 C L 10/29/17 14:08 Heart Rate 128 H 10/29/17 14:08 Respiratory Rate 20 10/29/17 14:08 Blood Pressure 144/88 H 10/29/17 14:08 O2 Sat (%) 97 10/29/17 14:08 O2 Delivery Mode Room Air Allergies/Adverse Reactions: lorazepam Allergy (Intermediate, Verified 10/18/17 09:37) Other-Enter Comments Home Medications: Medication Instructions Recorded Tamsulosin HCl [Flomax 0.4 MG (*)] 0.4 mg PO DAILY 07/20/17 Pantoprazole Sodium [Protonix 40mg 40 mg PO DAILY 07/21/17 (*)] Atorvastatin Calcium [Lipitor 20 20 mg PO DAILY18 10/14/17 mg (*)] Dexamethasone [Decadron 4 MG (*)] 4 mg PO Q8HRS PRN 10/14/17 Herbals/Supplements -Info Only 1 ea PO DAILY 10/14/17 Ondansetron HCl [Zofran] 4 mg PO Q8HRS PRN 10/14/17 Prochlorperazine Maleate 10 mg PO Q6HRS PRN 10/14/17 [Compazine 10mg (*)] morphINE [Roxanol Solution 20 0.25 - 0.5 ml PO Q3HRS PRN 10/14/17 mg/ml 30 ml] Ciprofloxacin [Cipro] 500 mg PO BID 1 Days #2 tab 10/23/17 Enoxaparin [Lovenox 100 MG (*)] 100 mg SQ DAILY #30 syr 10/23/17 Pantoprazole Sodium [Protonix 40mg 40 mg PO DAILY #30 tab 10/23/17 (*)] chlorproMAZINE HCL [Thorazine (*)] 25 mg PO QID PRN #30 tab 10/23/17 Phenergan 25mg (*) DC 10/29/17 Medical Decision Making ED Course/Re-evaluation: The patient presents to the emergency department with dehydration and tachycardia. The patient has failure to thrive and is unable to eat or drink at home. He will require admission to the hospital to explore additional options for hydration and nutrition as an outpatient. The patient did receive 2 L of normal saline in the emergency department. Consultation was made with Dr. Good from the hospitalist service who will admit the patient. The patient has no evidence of metabolic derangement or acute renal failure. Differential Diagnosis: Differential diagnosis considered includes dehydration, metabolic abnormality, renal failure, progressive malignant disease - Data Points Laboratory Results: Laboratory Results 10/29/17 14:15 10/29/17 14:15 12/13/17 12/13/17 14:15 14:15 WBC 16.67 10^3/uL H 10^3/uL (3.80-9.50) RBC 4.98 10^6/uL 10^6/uL (4.40-6.38) Hgb 14.1 g/dL g/dL (13.7-17.5) Hct 43.3 % % (40.0-51.0) MCV 86.9 fL fL (81.5-99.8) MCH 28.3 pg pg (27.9-34.1) MCHC 32.6 g/dL g/dL (32.4-36.7) RDW 21.1 % H % (11.5-15.2) Plt Count 402 10^3/uL H 10^3/uL (150-400) MPV 10.9 fL fL (8.7-11.7) Neut % (Auto) 89.7 % H % (39.3-74.2) Lymph % (Auto) 5.1 % L % (15.0-45.0) Foard % (Auto) 4.2 % L % (4.5-13.0) Eos % (Auto) 0.1 % L % (0.6-7.6) Baso % (Auto) 0.4 % % (0.3-1.7) Nucleat RBC Rel Count 0.0 % % (0.0-0.2) Absolute Neuts (auto) 14.96 10^3/uL H 10^3/uL (1.70-6.50) Absolute Lymphs (auto) 0.85 10^3/uL L 10^3/uL (1.00-3.00) Absolute Monos (auto) 0.70 10^3/uL 10^3/uL (0.30-0.80) Absolute Eos (auto) 0.02 10^3/uL L 10^3/uL (0.03-0.40) Absolute Basos (auto) 0.06 10^3/uL 10^3/uL (0.02-0.10) Absolute Nucleated RBC 0.00 10^3/uL 10^3/uL (0-0.01) Immature Gran % 0.5 % % (0.0-1.1) Immature Gran # 0.08 10^3/uL 10^3/uL (0.00-0.10) Platelet Estimate Pending Sodium 143 mEq/L mEq/L (134-144) Potassium 3.6 mEq/L mEq/L (3.5-5.2) Chloride 100 mEq/L mEq/L (97-110) Carbon Dioxide 26 mEq/l mEq/l (22-31) Anion Gap 17 mEq/L H mEq/L (8-16) BUN 19 mg/dL mg/dL (7-23) Creatinine 0.9 mg/dL mg/dL (0.7-1.3) Estimated GFR > 60 Glucose 121 mg/dL H mg/dL (70-100) Calcium 9.1 mg/dL mg/dL (8.5-10.4) Medications Given: Discontinued Medications Sodium Chloride (Ns) 1,000 mls @ 0 mls/hr IV EDNOW ONE; Wide Open PRN Reason: Protocol Stop: 10/29/17 14:26 Last Admin: 10/29/17 14:26 Dose: 1,000 mls Departure - Departure Disposition: [facility] Inpatient Acute Clinical Impression: Colon cancer, Dehydration, Generalized weakness Condition: Fair Referrals: Annia Engle MD [Primary Care Provider] - As per Instructions
[2017-10-29 14:31] LABS: % IMMATURE GRANULYOCYTES 0.5 % (0.0-1.1); ABSOLUTE IMMATURE GRANULOCYTES 0.08 10^3/uL (0.00-0.10); ADD DIFF? NO; ADD MORPH? YES; ADD SCAN? NO; ATYPICAL LYMPHOCYTE FLAG 10 (0-99); FRAGMENT RBC FLAG 40 (0-99); HEMATOCRIT 43.3 % (40.0-51.0); HEMOGLOBIN 14.1 g/dL (13.7-17.5); LEFT SHIFT FLG 0 (0-99); LIPEMIA HEMOLYSIS FLAG 80 (0-99); MEAN CELL HEMOGLOBIN 28.3 pg (27.9-34.1); MEAN CELL HEMOGLOBIN CONCENTR. 32.6 g/dL (32.4-36.7); MEAN CELL VOLUME 86.9 fL (81.5-99.8); MEAN PLATELET VOLUME 10.9 fL (8.7-11.7); PLATELET CLUMPS FLAG 0 (0-99); PLATELET COUNT 402 10^3/uL (150-400); RED BLOOD CELL COUNT 4.98 10^6/uL (4.40-6.38)
[2017-10-29 14:32] LABS: RED CELL DISTRIBUTION WIDTH 21.1 % (11.5-15.2)
[2017-10-29 14:48] LABS: ANION GAP 17 mEq/L (8-16); CALCIUM 9.1 mg/dL (8.5-10.4); CARBON DIOXIDE 26 mEq/l (22-31); CHLORIDE 100 mEq/L (97-110); CREATININE 0.9 mg/dL (0.7-1.3); GLOMERULAR FILTRATION RATE > 60; GLUCOSE 121 mg/dL (70-100); POTASSIUM 3.6 mEq/L (3.5-5.2); SODIUM 143 mEq/L (134-144)
[2017-10-29 15:07] LABS: HYPOCHROMIA 1+; PLATELET ESTIMATE ADEQUATE (ADEQ)
[2017-10-29] MEDS ORDERED: PROMETHAZINE HCL 25 MG/ML INJ IVP PRN (16:40)
[2017-10-29] MEDS ORDERED: ACETAMINOPHEN 325 MG TAB PO PRN (16:40)
[2017-10-29] MEDS ORDERED: ONDANSETRON DISINTEGRATING 4 MG TAB PO PRN (16:40)
[2017-10-29] MEDS ORDERED: PROCHLORPERAZINE MALEATE 25 MG SUPPR PR PRN (16:44)
[2017-10-29] MEDS ORDERED: D10W 1,000 ML IV PRN (16:47)
[2017-10-29] MEDS ORDERED: HYDROmorphone HCL/NS/PF 0.4 MG/2 ML SYR IVP PRN (17:00)
[2017-10-29 17:35] LABS: INR 2.24 (0.83-1.16); PROTIME(PATIENT) 24.8 SEC (12.0-15.0)
[2017-10-29 17:36] LABS: APTT 49.5 SEC (23.0-38.0)
[2017-10-29 17:42] LABS: ALANINE AMINOTRANSFERASE 294 IU/L (21-72); ALBUMIN 3.2 g/dL (3.5-5.0); ALKALINE PHOSPHATASE 1203 IU/L (38-126); ANION GAP 18 mEq/L (8-16); ASPARTATE AMINOTRANSFERASE 251 IU/L (17-59); BILIRUBIN,TOTAL 5.7 mg/dL (0.1-1.4); CALCIUM 9.2 mg/dL (8.5-10.4); CARBON DIOXIDE 23 mEq/l (22-31); CHLORIDE 100 mEq/L (97-110); CREATININE 0.9 mg/dL (0.7-1.3); GLOMERULAR FILTRATION RATE > 60; GLUCOSE 123 mg/dL (70-100); MAGNESIUM 2.2 mg/dL (1.6-2.3); POTASSIUM 3.5 mEq/L (3.5-5.2); SODIUM 141 mEq/L (134-144); TOTAL PROTEIN 7.3 g/dL (6.3-8.2); TRIGLYCERIDE 186 mg/dL (40-150)
[2017-10-29 17:54] LABS: BILIRUBIN-CONJUGATED 4.9 mg/dL (0.0-0.5); BILIRUBIN-UNCONJUGATED 0.8 mg/dL (0.0-1.1)
[2017-10-29] MEDS: diphenhydrAMINE 25 MG CAP PO PRN (20:15)
[2017-10-29] MEDS: TAMSULOSIN HCL 0.4 MG CAP PO SCH (20:15)
--- NOTE | 2017-10-29 20:22 | GHP ---
[f rep st] HISTORY AND PHYSICAL DATE OF ADMISSION: 10/29/2017 CHIEF COMPLAINT: Dehydration, nausea, and vomiting. HISTORY OF PRESENT ILLNESS: This is a 67-year-old male with a history of metastatic colon cancer. Zehra staton was recently admitted to the hospital at the end of September and discharged less than a week ago. At that point, he was diagnosed with malignant ascites and as well as SBP. He completed a 5 day cour se of antibiotics. He was also diagnosed with pulmonary embolism and is on Lovenox. The patient has been on chemotherapy for the last year. He has had problems with nausea and vomiting throughout his chemotherapy. The last episode of chemotherapy, due to shortage of normal saline was given as IV push rather than a drip. Apparently, he did not react well to this and has had nausea, vomiting, and decreased p.o. intake, essentially since then, which was in late September. In the hosp ital, he was placed on TPN and was eating some. However, as he was discharged he was unable to keep up his oral intake. Over the last week he lost about 10 pounds. He has been unable to keep anything down. It appears that this nausea and vomiting has been a fairly constant issue. His notes th at he was also a little bit jaundiced today. He is having bowel movements and passing gas. He had s ignificant GERD, but this appears to be improving. He usually sees Dr. Noguera as his oncologist. He is not having a lot in the way of abdominal pain, although he does have some left upper quadrant pain . He is not having any cough or shortness of breath. REVIEW OF SYSTEMS: A 10-point review of systems was obtained and was negative. PAST MEDICAL HISTORY: 1. Metastatic colon cancer. 2. Pulmonary embolism for which he is on Lovenox. 3. Recent SBP and diagnosed with malignant ascites. 4. Urinary retention for which he is on Flomax. 5. Severe reflux esophagitis and hiccups for which Thorazine works the best. 6. Chronic tachycardia. MEDICATIONS: Reviewed. SOCIAL HISTORY: No smoking. No alcohol. PHYSICAL EXAMINATION: VITAL SIGNS: Afebrile. Blood pressure is 160/103, heart rate 112, and oxygen saturation 94% on room air. GENERAL: The patient is cachectic and chronically ill appearing in no apparent distress. HEENT: No nicteric sclerae. Dry mucous membranes. No thrush. LUNGS: Good effort. Clear to auscultation maxime aterally. CARDIOVASCULAR: Tachycardic. No murmurs or gallops. ABDOMEN: Decreased bowel sounds. A somewhat firm abdomen, especially in the left upper quadrant with some tenderness there. No rebound or guarding. EXTREMITIES: No clubbing, cyanosis, or edema. SKIN: Without rash, dry, intact. NEUR OLOGIC: Intact. Alert and oriented x3. Moving all 4 extremities equally. PSYCHIATRIC: Normal aff ect. LABORATORY DATA: White blood cell count is elevated at 16. Platelets are 402. Sodium is 141, potass ium 3.5. Creatinine is 0.9. LFTs are increased with AST of 251, ALT 294, alkaline phosphatase 1203. Lipase is also elevated at 693, which is also new. ASSESSMENT: This is a 67-year-old male with a history of metastatic colon cancer with intractable na usea and vomiting. PLAN: 1. Intractable nausea, vomiting. This appears to be an acute on chronic issue. It is unclear at th is point, whether there is some mechanical obstruction due to his carcinomatosis or if this is from r esidual from chemotherapy. At this point, it is not clear that a PEG tube would be beneficial. In t he meantime, however, we will start TPN and give IV fluids. Oncology will have to help with the plan going forward, in terms of nutrition. 2. Elevated liver function tests. This is actually worse than prior. I will get an abdominal ultra sound, but would have a low tolerance for getting a CAT scan. He did have a CAT scan a couple of wee ks ago, which did show significant peritoneal involvement. 3. Rule out spontaneous bacterial peritonitis. We will get an ultrasound to see if there is any flu id. We probably should tap this in tomorrow if there is fluid and see if he needs treatment for spon taneous bacterial peritonitis. 4. Pulmonary embolism. We will continue Lovenox, although his INR is 2.2, which he is not on antico agulation for. This is probably due to malnutrition. 5. Metastatic colon cancer. Per Oncology. 6. Gastroesophageal reflux disease. We will continue proton pump inhibitor. 7. Hiccups. We will continue Thorazine as needed. 8. Urinary retention. We will continue his Flomax. CODE STATUS: The patient wishes to be a full code currently. /[id number]/MODL
[2017-10-29] MEDS: D5W 1/2 NS 1,000 ML IV SCH (22:18)
[2017-10-30] MEDS: guaiFENesin 600 MG TAB.ER PO PRN (01:09)
[2017-10-30] MEDS: ONDANSETRON 4 MG/2 ML VIAL IVP PRN (01:09)
[2017-10-30 06:10] LABS: % IMMATURE GRANULYOCYTES 0.7 % (0.0-1.1); ADD DIFF? NO; ADD MORPH? YES; ADD SCAN? NO; ATYPICAL LYMPHOCYTE FLAG 10 (0-99); FRAGMENT RBC FLAG 20 (0-99); HEMATOCRIT 40.9 % (40.0-51.0); HEMOGLOBIN 12.8 g/dL (13.7-17.5); LEFT SHIFT FLG 0 (0-99); LIPEMIA HEMOLYSIS FLAG 80 (0-99); MEAN CELL HEMOGLOBIN 27.5 pg (27.9-34.1); MEAN CELL HEMOGLOBIN CONCENTR. 31.3 g/dL (32.4-36.7); MEAN PLATELET VOLUME 11.1 fL (8.7-11.7); PLATELET CLUMPS FLAG 0 (0-99); PLATELET COUNT 367 10^3/uL (150-400); RED BLOOD CELL COUNT 4.65 10^6/uL (4.40-6.38)
[2017-10-30 06:13] LABS: INR 2.2 (0.83-1.16); PROTIME(PATIENT) 24.5 SEC (12.0-15.0)
[2017-10-30 06:14] LABS: APTT 38.2 SEC (23.0-38.0)
[2017-10-30 06:19] LABS: ALANINE AMINOTRANSFERASE 224 IU/L (21-72); ALBUMIN 2.7 g/dL (3.5-5.0); ALKALINE PHOSPHATASE 965 IU/L (38-126); ANION GAP 16 mEq/L (8-16); ASPARTATE AMINOTRANSFERASE 183 IU/L (17-59); BILIRUBIN,TOTAL 5.5 mg/dL (0.1-1.4); CALCIUM 8.7 mg/dL (8.5-10.4); CARBON DIOXIDE 25 mEq/l (22-31); CHLORIDE 103 mEq/L (97-110); CREATININE 0.9 mg/dL (0.7-1.3); GLOMERULAR FILTRATION RATE > 60; GLUCOSE 114 mg/dL (70-100); MAGNESIUM 2.2 mg/dL (1.6-2.3); POTASSIUM 4.2 mEq/L (3.5-5.2); SODIUM 144 mEq/L (134-144); TOTAL PROTEIN 6.3 g/dL (6.3-8.2)
[2017-10-30 06:25] LABS: BILIRUBIN-CONJUGATED 4.8 mg/dL (0.0-0.5); BILIRUBIN-UNCONJUGATED 0.7 mg/dL (0.0-1.1)
[2017-10-30 06:48] LABS: ELLIPTOCYTES 1+; HYPOCHROMIA 1+; MACROCYTES 1+; MICROCYTES 1+; PLATELET ESTIMATE ADEQUATE (ADEQ)
[2017-10-30] MEDS: PANTOPRAZOLE SODIUM 40 MG TAB PO SCH (08:10)
[2017-10-30] MEDS ORDERED: ENOXAPARIN 100 MG/ML SYR SC SCH (09:00)
--- NOTE | 2017-10-30 11:01 | WOCRNPDOC ---
WOCRN Advanced Assessment Note - Skin Integrity Problem, Advanced Assess Coccyx Pressure Injury Dressing Type: Open to Air Exudate Amount: None Margret Wound Tissue: Erythema, Painful/Tender Wound Bed Color: Yellow Wound Bed Constitution: Adhered Slough Wound Edges: Attached Site Measurement - Head-to-Toe Length X Width X Depth (cm): 0.4x0.4x0.1 Pressure Injury Stage: Unstageable Pressure Injury Present on Admit: Yes Skin Integrity Problem Comment: Patient reports knowing that there was a wound to the area for a period of time. Treatment at home consists of epsom salt baths and butt balm. Discussed etiology of pressure injuries at length with patient and . Education about plan of care, outcomes and current state. Reported to Kirit Kang. Wound care will round again next week.
[2017-10-30] MEDS: ERTAPENEM 1 GM VIAL IVP SCH (11:10)
--- NOTE | 2017-10-30 12:29 | HOSPPROG ---
Hospitalist Progress Note Assessment/Plan: Assessment: 67-year-old male presents with acute on chronic intractable nausea and vomiting in the setting of stage IV colon cancer status post recent chemotherapy Plan: 1. Nausea and vomiting. Acute on chronic, new problem this provider, further workup indicated. Possibly secondary to acalculous cholecystitis as evidenced by ultrasound with hyperemic gallbladder and wall thickening, direct hyperbilirubinemia -physical exam indicative of diffuse abdominal tenderness, not particularly worse in the right upper quadrant, but this may be secondary to referred pain from chronically building inflammation in the gallbladder area -I suspect his leukocytosis is secondary to inflammation and/or infection, his tachycardia, while chronic, is most likely ranging in the 110-120 range secondary to ongoing inflammation and/or infection -reviewed outside records including 10/17/[address] demonstrating a normal-appearing gallbladder, bilirubin level was also normal at that time, suspect that biliary obstruction has occurred over the past 2 weeks, but it should be noted that the patient's nausea vomiting and abdominal symptoms did pre date that but her difficult to separate from his recent hospitalization for bacterial peritonitis as well as his chemotherapy received on 10/09/2017 -discussed with Dr. Cherise Argueta, consultation appreciated, she has recommended HIDA scan, and I will defer any further surgical recommendations to her at this time, family anxiously awaiting guidance -initiate antibiotic therapy at this time, Invanz 1 g daily -treat supportively with IV pain medications and antiemetics, ongoing IV fluids 2. Pulmonary embolism. Acute within the past several weeks, present on this admission, identified prior to arrival and treated with systemic anticoagulation notably Coumadin -patient will be high risk of recurrent and worsening venous thromboembolism if we are to hold his systemic anticoagulation for surgery -current INR is 2.2, currently holding warfarin, received 1 dose of bridging Lovenox therapy this morning, will hold additional doses of bridging therapy until the surgical plan is clear -may require fresh frozen plasma if surgery is to be pursued today, continue to monitor INR 3. Pressure injury. Present on admission, wound care consultation appreciated 4. Stage IV colon cancer. Patient is status post surgery at [facility], he is currently receiving chemotherapy with Dr. Criss Kelly as his primary oncologist -most recent chemotherapy 10/09/2017, session was expedited given the shortage in normal saline, patient did not tolerate this session well -will consult with Oncology for ongoing support and plan of care management 5. Transaminitis. Most likely secondary to biliary obstruction as outlined above, will continue monitor 6. Malignant ascites. Patient with recent SBP, although it is possible that he has had recurrence of this, I think that his acute situation is more likely secondary to acalculous cholecystitis and a diagnostic paracentesis can be held at this time, his ascites may complicate potential surgery and prolonged healing 7. Gastroesophageal reflux disease. Patient with significant reflux, resulting in hoarseness, currently on Thorazine and PPI 8. Suspected severe protein calorie malnutrition. Patient's oral intake has recently been 0%, he has been experiencing notable weight loss, he is beginning to demonstrate proximal muscle wasting, get dietary consultation, will most likely require TPN Diet. NPO Prophylaxis. High risk patient, currently holding Coumadin, holding further bridging therapy for possible surgery Code. Full Disposition. Anticipated discharge uncertain this time, anticipated length stay is greater than 48 hr warranting inpatient admission status for suspected acute acalculous cholecystitis requiring potential surgical management with otherwise high risk morbidity/mortality patient and high-level of medical complexity. Subjective: Patient with ongoing nausea, abdominal pain is a 2/10 Objective: Vital Signs Temp Pulse Resp BP Pulse Ox 36.9 C 118 H 18 165/98 H 92 10/30/17 12:00 10/30/17 12:00 10/30/17 12:00 10/30/17 12:00 10/30/17 12:00 Laboratory Results 10/30/17 05:40 10/30/17 05:40 10/29/17 10/30/17 10/31/17 05:59 05:59 05:59 Intake Total 630 Output Total 150 120 Balance 480 -120 PT 24.5 SEC (12.0-15.0) H 10/30/17 05:40 INR 2.20 (0.83-1.16) H 10/30/17 05:40 - Physical Exam Constitutional: no apparent distress, chronically ill appearing, uncomfortable, other (Proximal muscle wasting), No appears nourished Ears, Nose, Mouth, Throat: hearing normal, ears appear normal, no oral mucosal ulcers, other (Tacky mucous membranes) Cardiovascular: tachycardia, No systolic murmur, No irregularly irregular, No edema Respiratory: no respiratory distress, no rales or rhonchi, clear to auscultation , reduced air movement (Bilateral bases) Gastrointestinal: tenderness (Diffusely throughout), ascites, distension (Mild) , No normoactive bowel sounds (Hyperactive), No guarding Skin: other (Jaundice) Neurologic: AAOx3, sensation intact bilaterally, No weakness (Motor strength 5/ 5 bilateral lower extremity) Psychiatric: not anxious, not encephalopathic, flat affect, No agitated ICD10 Worksheet Patient Problems: Problems Problem Status Onset Nausea and vomiting Acute Shortness of breath Acute Generalized weakness Acute Dehydration Acute Colon cancer Acute Globus sensation Acute
--- NOTE | 2017-10-30 13:08 | PDMN ---
Medical Necessity Medical necessity: est los>2mn for intractable N/V, acute on chronic, r/t obstruction vs chemo, elevated liver fx, r/o SBP; for onc consult, TPN, IVF; comorbid metastatic colon CA, hx recent PE, SBP, GERD and hiccups; per order and H&P 10/29/17
--- NOTE | 2017-10-30 15:49 | ASMTCMCOM ---
CM Note CM Note Notes: Pt with hx of colon ca admitted for dehydration and FTT. Pt may need a julia. After that he will be put on TPN and may DC with it. Pt is on IV ABX but will likely DC on oral ABX. Pt is current with [facility]. If he needs TPN, an infusion company will be alerted. CM will continue to follow. Date Signed: 10/30/2017 03:49 PM Electronically Signed By:Savanna Valdez LCSW
[2017-10-30] MEDS ORDERED: HEPARIN 10,000 UNIT/10 ML MDV IVP ONE (18:28)
[2017-10-30] MEDS ORDERED: HEPARIN 10,000 UNIT/10 ML MDV IVP PRN (18:28)
[2017-10-30] MEDS ORDERED: HEPARIN/DEXTROSE 500 ML IV SCH (18:30)
--- NOTE | 2017-10-30 18:38 | SOAPPROG ---
SOAP Progress Note Assessment/Plan: Assessment: Awaiting HIDA, Spent 15 min discussing with family Unclear if due to liver vs acalculous cholecystitis. Suspect cholecystitis but has been on TPN Also - recent clot and INR is 2 Had Avastin 3 weeks ago In addition failure to thrive Agree with abx and transitioning to Heparin drip in the event surgery will be needed High risk surgical candidate Plan: 10/30/17 18:31 Objective: Vital Signs Temp Pulse Resp BP Pulse Ox 36.4 C 121 H 20 147/94 H 92 10/30/17 15:46 10/30/17 15:46 10/30/17 15:46 10/30/17 15:46 10/30/17 15:46 Laboratory Results 10/30/17 05:40 10/30/17 05:40 10/29/17 10/30/17 10/31/17 05:59 05:59 05:59 Intake Total 630 200 Output Total 150 120 Balance 480 80 PT 24.5 SEC (12.0-15.0) H 10/30/17 05:40 INR 2.20 (0.83-1.16) H 10/30/17 05:40 ICD10 Worksheet Patient Problems: Problems Problem Status Onset Colon cancer Acute Dehydration Acute Generalized weakness Acute Globus sensation Acute Nausea and vomiting Acute Shortness of breath Acute
[2017-10-30 19:05] LABS: INR 2.81 (0.83-1.16); PROTIME(PATIENT) 29.5 SEC (12.0-15.0)
[2017-10-30 19:06] LABS: APTT 47.5 SEC (23.0-38.0)
[2017-10-30] MEDS: TAMSULOSIN HCL 0.4 MG CAP PO SCH (20:34)
[2017-10-30] MEDS: HYDROmorphone HCL/NS/PF 0.4 MG/2 ML SYR IVP PRN (21:39)
[2017-10-30] MEDS: diphenhydrAMINE 25 MG CAP PO PRN (21:39)
[2017-10-31] MEDS: D5W 1/2 NS 1,000 ML IV SCH ×3 (00:30→21:13)
[2017-10-31 04:58] LABS: % IMMATURE GRANULYOCYTES 0.4 % (0.0-1.1); ABSOLUTE IMMATURE GRANULOCYTES 0.05 10^3/uL (0.00-0.10); ADD DIFF? NO; ADD MORPH? YES; ADD SCAN? NO; ATYPICAL LYMPHOCYTE FLAG 20 (0-99); FRAGMENT RBC FLAG 20 (0-99); HEMATOCRIT 36.5 % (40.0-51.0); HEMOGLOBIN 11.6 g/dL (13.7-17.5); LEFT SHIFT FLG 0 (0-99); LIPEMIA HEMOLYSIS FLAG 80 (0-99); MEAN CELL HEMOGLOBIN 27.5 pg (27.9-34.1); MEAN CELL HEMOGLOBIN CONCENTR. 31.8 g/dL (32.4-36.7); MEAN CELL VOLUME 86.5 fL (81.5-99.8); MEAN PLATELET VOLUME 10.9 fL (8.7-11.7); PLATELET CLUMPS FLAG 10 (0-99); PLATELET COUNT 328 10^3/uL (150-400); RED BLOOD CELL COUNT 4.22 10^6/uL (4.40-6.38)
[2017-10-31 05:02] LABS: RED CELL DISTRIBUTION WIDTH 20.6 % (11.5-15.2)
[2017-10-31 05:09] LABS: INR 3.01 (0.83-1.16); PROTIME(PATIENT) 31.1 SEC (12.0-15.0)
[2017-10-31 05:10] LABS: APTT 42.1 SEC (23.0-38.0)
[2017-10-31 05:16] LABS: ALANINE AMINOTRANSFERASE 171 IU/L (21-72); ALBUMIN 2.3 g/dL (3.5-5.0); ALKALINE PHOSPHATASE 824 IU/L (38-126); ANION GAP 13 mEq/L (8-16); ASPARTATE AMINOTRANSFERASE 126 IU/L (17-59); BILIRUBIN,TOTAL 5.7 mg/dL (0.1-1.4); CALCIUM 7.9 mg/dL (8.5-10.4); CARBON DIOXIDE 23 mEq/l (22-31); CHLORIDE 103 mEq/L (97-110); CREATININE 0.7 mg/dL (0.7-1.3); GLOMERULAR FILTRATION RATE > 60; GLUCOSE 126 mg/dL (70-100); MAGNESIUM 1.9 mg/dL (1.6-2.3); POTASSIUM 3.2 mEq/L (3.5-5.2); SODIUM 139 mEq/L (134-144); TOTAL PROTEIN 5.6 g/dL (6.3-8.2)
[2017-10-31 05:25] LABS: BILIRUBIN-UNCONJUGATED 0.7 mg/dL (0.0-1.1)
[2017-10-31 05:48] LABS: ELLIPTOCYTES 1+; MACROCYTES 1+; MICROCYTES 1+; PLATELET ESTIMATE ADEQUATE (ADEQ); POLYCHROMASIA 1+
[2017-10-31] MEDS: PANTOPRAZOLE SODIUM 40 MG TAB PO SCH (09:24)
[2017-10-31] MEDS: ERTAPENEM 1 GM VIAL IVP SCH (09:24)
--- NOTE | 2017-10-31 18:01 | HOSPPROG ---
Hospitalist Progress Note Assessment/Plan: Assessment: 67-year-old male presents with acute on chronic intractable nausea and vomiting in the setting of stage IV colon cancer status post recent chemotherapy Plan: 1. Possible acalculous cholecystitis. Evidenced by ultrasound with hyperemic gallbladder and wall thickening, direct hyperbilirubinemia -cont Invanz 1 g daily -treat supportively with IV pain medications and antiemetics, ongoing IV fluids -d/w Dr. Argueta, she recommends MRCP for further eval for possible biliary stone 2. Pulmonary embolism. Acute within the past several weeks, present on this admission, identified prior to arrival and treated with systemic anticoagulation notably Coumadin -patient will be high risk of recurrent and worsening venous thromboembolism if we are to hold his systemic anticoagulation for surgery -current INR is supratherapeutic, holding coumadin, no indication for bridging at this time 3. Pressure injury. Present on admission, wound care consultation appreciated 4. Stage IV colon cancer. Patient is status post surgery at [facility], he is currently receiving chemotherapy with Dr. Murali Noguera as his primary oncologist -most recent chemotherapy 10/09/2017, session was expedited given the shortage in normal saline, patient did not tolerate this session well -appreciate Oncology for ongoing support and plan of care management 5. Transaminitis. Most likely secondary to biliary obstruction as outlined above, will continue monitor 6. Malignant ascites. Patient with recent SBP, although it is possible that he has had recurrence of this, I think that his acute situation is more likely secondary to acalculous cholecystitis and a diagnostic paracentesis can be held at this time, his ascites may complicate potential surgery and prolonged healing -MRCP should also illuminate volume of ascites and whether the LLQ firmness is malignant mass 7. Gastroesophageal reflux disease. Patient with significant reflux, resulting in hoarseness, currently on Thorazine and PPI 8. Suspected severe protein calorie malnutrition. Patient's oral intake has recently been 0%, he has been experiencing notable weight loss, he is beginning to demonstrate proximal muscle wasting -dietary consultation appreciated -recommended that patient not start TPN while we are currently working-up biliary stasis, as it could worsen and also contribute to misinterpretation of the data -counseled patient to attempt PO intake after MRCP w/ various liquids, counseled family to try different types and see what is palatable Diet. NPO for MRCP, then liquids Prophylaxis. High risk patient, currently holding Coumadin and bridging, INR elevated Code. Full Disposition. Anticipated discharge uncertain this time, high risk morbidity/ mortality patient and high-level of medical complexity. Subjective: not hungry Objective: Vital Signs Temp Pulse Resp BP Pulse Ox 36.4 C 119 H 18 120/81 H 93 10/31/17 15:06 10/31/17 15:06 10/31/17 15:06 10/31/17 15:06 10/31/17 15:06 Laboratory Results 10/31/17 04:45 10/31/17 04:45 10/30/17 10/31/17 11/01/17 05:59 05:59 05:59 Intake Total 630 1073 100 Output Total 150 595 Balance 480 478 100 PT 31.1 SEC (12.0-15.0) H 10/31/17 04:45 INR 3.01 (0.83-1.16) H 10/31/17 04:45 - Time Spent With Patient Time Spent with Patient: greater than 35 minutes Time Spent with Patient: Greater than 35 minutes spent on this patients care, greater than 50% of time spent counseling, educating, and coordinating care regarding the above mentioned plan. - Physical Exam Constitutional: chronically ill appearing, uncomfortable, cachectic Eyes: PERRL, anicteric sclera, EOMI Ears, Nose, Mouth, Throat: moist mucous membranes, no oral mucosal ulcers Cardiovascular: regular rate and rhythym, no murmur, rub, or gallop Respiratory: no respiratory distress, no rales or rhonchi, clear to auscultation Gastrointestinal: tenderness (LLQ), ascites (minimal), No guarding, No distension Neurologic: AAOx3 Psychiatric: not anxious, not encephalopathic, flat affect, No agitated ICD10 Worksheet Patient Problems: Problems Problem Status Onset Nausea and vomiting Acute Shortness of breath Acute Generalized weakness Acute Dehydration Acute Colon cancer Acute Globus sensation Acute
[2017-10-31] MEDS: TAMSULOSIN HCL 0.4 MG CAP PO SCH (21:05)
--- NOTE | 2017-10-31 22:08 | GCON ---
[f rep st] CONSULTATION ONCOLOGY CONSULTATION REASON FOR CONSULTATION: Metastatic colon cancer. HISTORY OF PRESENT ILLNESS: The patient is a 67-year-old man with metastatic colon cancer. He was d iagnosed in October 2010, with stage IIIC colon cancer. He was treated with hemicolectomy and adjuv ant FOLFOX. He had an upper abdominal lymph node recurrence causing extrinsic compression, resected March 2016. He developed hepatic and peritoneal metastases in November 2016, and began FOLFIRI/Avastin. Of note, he is heterozygous for UGT1A1. His most recent chemotherapy including Avastin was 017. He was admitted on 10/29/2017, with nausea and vomiting. He was recently in the hospital 10/14 through 10/23/2017, with nausea, vomiting, and diarrhea. This was felt due to chemotherapy. Workup during this admission included abdominal ultrasound, which demonstrated gallbladder wall thick ening and possible acalculous cholecystitis. Mild left intrahepatic ductal dilation with no extrahep atic dilation. A HIDA demonstrated no excretion after 2 hours. An MRCP was performed earlier today, results pending. Dr. Argueta is consulting. His total bilirubin is significantly increased from prio r. On admission, 5.7 compared to 0.4 (10/20/2017) all direct. In addition, he has a new transaminit is with AST 251, ALT 294 on admission. Alkaline phosphatase 1203 on admission (239 on 10/20/2017). PAST MEDICAL HISTORY: 1. Metastatic colon cancer, as above. 2. Pulmonary embolus diagnosed during his recent hospitalization (CT angiogram 10/16/2017). 3. Recent SBP. 4. Reflux. PAST SURGICAL HISTORY: Per HPI. SOCIAL HISTORY: He is and lives up [place]. He is originally from [place]. FAMILY HISTORY: His sister had breast cancer and kidney cancer. REVIEW OF SYSTEMS: GENERAL: Fatigue, no fever or chills. CARDIOVASCULAR: No chest pain, palpitati ons, PND, orthopnea. RESPIRATORY: No cough or pleurisy. He feels it is difficult to get a deep linda ath. GI: Per HPI. He is having bowel movements. Nausea and vomiting have been a persistent issue. HEMATOLOGIC: No bleeding or bruising. NEUROLOGIC: No new symptoms. PHYSICAL EXAM: VITAL SIGNS: Blood pressure 120/81, heart rate 119, respirations 18, 93% on room air , afebrile. GENERAL: Chronically ill-appearing gentleman, who appears fatigued but in no acute dist ress. HEENT: Scleral icterus. CARDIOVASCULAR: Regular rate and rhythm. No lower extremity edema. LUNGS: Clear to auscultation. ABDOMEN: Positive bowel sounds. Mild tenderness left upper quadra nt. SKIN: Right-sided port. No petechiae, ecchymoses. NEUROLOGIC: Grossly nonfocal. LABORATORY DATA: Today, chemistries remarkable for creatinine 0.7, total bilirubin 5.7, direct 5.0. AST 126, ALT 171, alkaline phosphatase 824, albumin 2.3. WBC 13.5, hemoglobin 11.6, platelets 328,0 00. INR 3.0. RADIOLOGIC STUDIES: As above. IMPRESSION: 1. Question acalculous cholecystitis versus intrinsic liver dysfunction. Appreciate Dr. Argueta's darnell luation. Await MRCP results. He will be high risk surgical candidate given recent Avastin. 2. Recent pulmonary embolism. Coumadin has been held. When his INR is less than 2, heparin would b e appropriate if surgery is being considered. 3. Metastatic colon cancer. Last chemotherapy (FOLFIRI/Avastin) 10/08/2017. /[id number]/MODL
[2017-11-01 04:50] LABS: % IMMATURE GRANULYOCYTES 0.4 % (0.0-1.1); ABSOLUTE IMMATURE GRANULOCYTES 0.05 10^3/uL (0.00-0.10); ADD DIFF? NO; ADD MORPH? YES; ADD SCAN? NO; ATYPICAL LYMPHOCYTE FLAG 10 (0-99); FRAGMENT RBC FLAG 20 (0-99); HEMATOCRIT 34.1 % (40.0-51.0); HEMOGLOBIN 11.3 g/dL (13.7-17.5); LEFT SHIFT FLG 10 (0-99); LIPEMIA HEMOLYSIS FLAG 80 (0-99); MEAN CELL HEMOGLOBIN 28.1 pg (27.9-34.1); MEAN CELL HEMOGLOBIN CONCENTR. 33.1 g/dL (32.4-36.7); MEAN CELL VOLUME 84.8 fL (81.5-99.8); MEAN PLATELET VOLUME 11.2 fL (8.7-11.7); PLATELET CLUMPS FLAG 10 (0-99); PLATELET COUNT 320 10^3/uL (150-400); RED BLOOD CELL COUNT 4.02 10^6/uL (4.40-6.38)
[2017-11-01 04:55] LABS: RED CELL DISTRIBUTION WIDTH 20.9 % (11.5-15.2)
[2017-11-01 04:59] LABS: APTT 46.2 SEC (23.0-38.0); INR 3.35 (0.83-1.16); PROTIME(PATIENT) 33.7 SEC (12.0-15.0)
[2017-11-01 05:16] LABS: ALANINE AMINOTRANSFERASE 146 IU/L (21-72); ALBUMIN 2.3 g/dL (3.5-5.0); ALKALINE PHOSPHATASE 781 IU/L (38-126); ANION GAP 12 mEq/L (8-16); ASPARTATE AMINOTRANSFERASE 132 IU/L (17-59); BILIRUBIN,TOTAL 6.5 mg/dL (0.1-1.4); CALCIUM 7.7 mg/dL (8.5-10.4); CARBON DIOXIDE 23 mEq/l (22-31); CHLORIDE 105 mEq/L (97-110); CREATININE 0.7 mg/dL (0.7-1.3); GLOMERULAR FILTRATION RATE > 60; GLUCOSE 118 mg/dL (70-100); POTASSIUM 3.3 mEq/L (3.5-5.2); SODIUM 140 mEq/L (134-144); TOTAL PROTEIN 5.6 g/dL (6.3-8.2)
[2017-11-01 05:21] LABS: MACROCYTES 1+; MICROCYTES 1+; PLATELET ESTIMATE ADEQUATE (ADEQ); POLYCHROMASIA 1+
[2017-11-01 05:23] LABS: BILIRUBIN-CONJUGATED 5.7 mg/dL (0.0-0.5); BILIRUBIN-UNCONJUGATED 0.8 mg/dL (0.0-1.1)
[2017-11-01] MEDS: D5W 1/2 NS 1,000 ML IV SCH ×2 (07:06→18:35)
--- NOTE | 2017-11-01 08:00 | SOAPPROG ---
MILAN Progress Note Assessment/Plan: Assessment: Spent 30 minutes with family, coordinating care with Dr. Noguera and Dr. Hyman Difficult situation, HIDA could be acalculous julia vs cholestasis vs stone vs external compression Major concerns about surgery Progressive disease and unable to tolerate Folfiri recent PE -INR climbing despite not being on Warfarin Had Avastin 3 weeks ago In addition failure to thrive with recent weight loss Consider MRCP - Certainly if CBD stone then this could be considered. However, if shows external compression of the ducts then may need to have hospice discussions. They are currently on a chemo break until the end of October to see if he can regain his strength. Agree with abx and Heparin drip if needed in the event surgery will be needed High risk surgical candidate S: Feels about the same Hoarse voice Tender in LUQ Plan: 10/30/17 18:31 11/01/17 07:59 11/01/17 08:00 Objective: Vital Signs Temp Pulse Resp BP Pulse Ox 36.5 C 115 H 20 130/83 H 93 11/01/17 04:00 11/01/17 04:00 11/01/17 04:00 11/01/17 04:00 11/01/17 04:00 Laboratory Results 11/01/17 04:40 11/01/17 04:40 10/31/17 11/01/17 11/02/17 05:59 05:59 05:59 Intake Total 1073 2239 Output Total 595 Balance 478 2239 PT 33.7 SEC (12.0-15.0) H 11/01/17 04:40 INR 3.35 (0.83-1.16) H 11/01/17 04:40 ICD10 Worksheet Patient Problems: Problems Problem Status Onset Colon cancer Acute Dehydration Acute Generalized weakness Acute Globus sensation Acute Nausea and vomiting Acute Shortness of breath Acute
[2017-11-01] MEDS: guaiFENesin 600 MG TAB.ER PO PRN (08:12)
[2017-11-01] MEDS: ERTAPENEM 1 GM VIAL IVP SCH (08:12)
[2017-11-01] MEDS: PANTOPRAZOLE SODIUM 40 MG TAB PO SCH (08:12)
[2017-11-01] MEDS: ONDANSETRON 4 MG/2 ML VIAL IVP PRN (08:15)
[2017-11-01] MEDS: HYDROmorphone HCL/NS/PF 0.4 MG/2 ML SYR IVP PRN (09:41)
[2017-11-01] MEDS ORDERED: chlorproMAZINE HCL 25 MG TAB PO PRN (12:04)
[2017-11-01] MEDS ORDERED: LACTULOSE 20 GM/30 ML UDCUP PO PRN (14:08)
[2017-11-01] MEDS ORDERED: MAGNESIUM HYDROXIDE 30 ML UDCUP PO PRN (14:08)
[2017-11-01] MEDS ORDERED: BISACODYL 10 MG SUPP PR PRN (14:08)
[2017-11-01] MEDS ORDERED: POLYETHYLENE GLYCOL 3350 17 GM PKT PO PRN (14:08)
--- NOTE | 2017-11-01 14:53 | SOAPPROG ---
SOSERENA Progress Note Assessment/Plan: E&M colon cancer * Stage IV colon cancer, KRAS wt, NRAS wt, BRAF mut, UGT1A1 heterozygous: last folfiri + avastin was 10/08. I suspect most of his problem is due to progression of the cancer. CT prior to this therapy showed new ascites and slight increase in a few nodes. He was feeling well, so we elected to continue therapy and monitor closely. Unfortunately, he has had 2 admissions with bowel issues and now with an obstructive biliary process of unclear etiology. His PFS has declined as well. We can try to get his bowels working better. We can also try to drain the bile system. If he improved significantly, we could consider trial of irinotecan + EGFR inhibitor. Couldn't use irinotecan today due to high bilirubin. It would also be reasonable to consider comfort care and hospice. He and the family want to discuss it but also would like to try relatively low risk approaches to see if he feels better. * Jaundice and elevated LFT: biliary obs I suspect probably from cancer but nothing obvious. I spoke with Dr. Argueta and he isn't a surgical candidate at this time. * Recent Pulmonary embolism within the past several weeks: current INR is supratherapeutic, holding coumadin, no indication for bridging at this time * Severe protein calorie malnutrition. recommended against TPN I spent >35 min with patient and family. Subjective: Throat sore and hoarse voice. Abd discomfort Objective: Vital Signs Temp Pulse Resp BP Pulse Ox 36.3 C 112 H 19 116/78 92 11/01/17 11:56 11/01/17 11:56 11/01/17 11:56 11/01/17 11:56 11/01/17 11:56 Laboratory Results 11/01/17 04:40 11/01/17 04:40 10/31/17 11/01/17 11/02/17 05:59 05:59 05:59 Intake Total 1073 2239 Output Total 595 Balance 478 2239 PT 33.7 SEC (12.0-15.0) H 11/01/17 04:40 INR 3.35 (0.83-1.16) H 11/01/17 04:40 Laboratory Tests 10/29/17 10/30/17 10/31/17 14:15 05:40 04:45 Total Bilirubin 5.5 H 5.7 H AST 251 H 183 H 126 H ALT 294 H 224 H 171 H Alkaline Phosphatase 1203 H 965 H 824 H 11/01/17 04:40 Total Bilirubin 6.5 H AST 132 H ALT 146 H Alkaline Phosphatase 781 H Laboratory Tests 10/30/17 10/31/17 11/01/17 18:40 04:45 04:40 INR 2.81 H 3.01 H 3.35 H Physical Exam - Physical Exam General Appearance: no apparent distress EENT: scleral icterus (R), scleral icterus (L) Respiratory: decreased breath sounds Cardiac/Chest: tachycardia Abdomen: soft, No normal bowel sounds (decreased but present), No non-tender Skin: jaundice ICD10 Worksheet Patient Problems: Problems Problem Status Onset Colon cancer Acute Dehydration Acute Generalized weakness Acute Globus sensation Acute Nausea and vomiting Acute Shortness of breath Acute
--- NOTE | 2017-11-01 17:03 | HOSPPROG ---
Hospitalist Progress Note Assessment/Plan: Assessment: 67-year-old male presents with acute on chronic intractable nausea and vomiting in the setting of stage IV colon cancer status post recent chemotherapy Plan: 1. Possible acalculous cholecystitis. Evidenced by ultrasound with hyperemic gallbladder and wall thickening, direct hyperbilirubinemia -cont Invanz 1 g daily -treat supportively with IV pain medications and antiemetics, ongoing IV fluids -Dr. Noguera and I are not recommending open surg at this time, although palliative drain could be pursued if condition worsening/becoming more symptomatic 2. Pulmonary embolism. Acute within the past several weeks, present on this admission, identified prior to arrival and treated with systemic anticoagulation notably Coumadin -INR remains supratherapeutic despite remaining off coumadin, indicative of impaired liver fxn -cont monitor INR 3. Pressure injury. Present on admission, wound care consultation appreciated 4. Stage IV colon cancer. Patient is status post surgery at [facility], he is currently receiving chemotherapy with Dr. Murali Noguera as his primary oncologist -most recent chemotherapy 10/09/2017 -Dr. Noguera and I counseled patient, son, extensively today, outlining the specific chemotherapy options available, but also sharing that 1 of the 3 agents would not be possible due to liver impairment (which would likely reduce the overall efficacy of the tx) and that additional chemo would be only potentially adding weeks of survival time, with the anticipated side effect profile -Mr. Thomas indicated that the news was coming a bit sooner than he had anticipated, and he would like some time to consider w/ his family -we recommended hospice consulting w/ pt/family tomorrow to help outline the services he could receive, and address his/'s concerns about safety at home 5. Transaminitis. Most likely secondary to biliary obstruction as outlined above, will continue monitor 6. Malignant ascites. Patient with recent SBP, although it is possible that he has had recurrence of this, I think that his acute situation is more likely secondary to acalculous cholecystitis and a diagnostic paracentesis can be held at this time, his ascites may complicate potential surgery and prolonged healing 7. Gastroesophageal reflux disease. Patient with significant reflux, resulting in hoarseness, currently on Thorazine and PPI 8. Suspected severe protein calorie malnutrition. Patient's oral intake has recently been 0%, he has been experiencing notable weight loss, he is beginning to demonstrate proximal muscle wasting -dietary consultation appreciated -recommended that patient not start TPN while we are currently working-up biliary stasis, as it could worsen and also contribute to misinterpretation of the data -counseled patient to attempt PO intake after MRCP w/ various liquids, counseled family to try different types and see what is palatable 9. Possible eric esophagitis. Hx of eric, odynophagia despite optimal GERD tx -start nystatin 10. Ileus. Likely contributing to nausea, having small BMs so no overt SBO -get aggressive w/ suppository and enemas Diet. As kady, encourage Prophylaxis. High risk patient, currently holding Coumadin and bridging, INR elevated Code. Full Disposition. Anticipated discharge uncertain this time, high risk morbidity/ mortality patient and high-level of medical complexity. Subjective: patient w/ ongoing nausea, poor PO intake 2/2 odynophagia Objective: Vital Signs Temp Pulse Resp BP Pulse Ox 36.3 C 112 H 20 106/71 93 11/01/17 16:05 11/01/17 16:05 11/01/17 16:05 11/01/17 16:05 11/01/17 16:05 Laboratory Results 11/01/17 04:40 11/01/17 04:40 10/31/17 11/01/17 11/02/17 05:59 05:59 05:59 Intake Total 1073 2239 Output Total 595 Balance 478 2239 PT 33.7 SEC (12.0-15.0) H 11/01/17 04:40 INR 3.35 (0.83-1.16) H 11/01/17 04:40 - Time Spent With Patient Time Spent with Patient: greater than 35 minutes Time Spent with Patient: Greater than 35 minutes spent on this patients care, greater than 50% of time spent counseling, educating, and coordinating care regarding the above mentioned plan. - Physical Exam Constitutional: no apparent distress, chronically ill appearing, uncomfortable Ears, Nose, Mouth, Throat: other (hoarseness) Cardiovascular: systolic murmur (II/ sternal), tachycardia, No irregularly irregular, No edema Respiratory: no respiratory distress, no rales or rhonchi, clear to auscultation Gastrointestinal: tenderness (mid-epigastric and lower half), ascites, distension, No guarding Neurologic: AAOx3 Psychiatric: not anxious, flat affect, No agitated ICD10 Worksheet Patient Problems: Problems Problem Status Onset Nausea and vomiting Acute Shortness of breath Acute Generalized weakness Acute Dehydration Acute Colon cancer Acute Globus sensation Acute
[2017-11-01] MEDS: NYSTATIN SUSP 500000 UNIT/5 ML UDCUP PO SCH ×3 (18:20→22:19)
[2017-11-01] MEDS: MBX SOLN 30 ML BOTTLE PO PRN (22:16)
[2017-11-01] MEDS: SENNOSIDES/DOCUSATE SODIUM TAB PO SCH (22:19)
[2017-11-01] MEDS: TAMSULOSIN HCL 0.4 MG CAP PO SCH (22:19)
[2017-11-02 04:55] LABS: % IMMATURE GRANULYOCYTES 0.5 % (0.0-1.1); ABSOLUTE IMMATURE GRANULOCYTES 0.05 10^3/uL (0.00-0.10); ADD DIFF? NO; ADD MORPH? YES; ADD SCAN? NO; ATYPICAL LYMPHOCYTE FLAG 20 (0-99); FRAGMENT RBC FLAG 40 (0-99); LEFT SHIFT FLG 0 (0-99); LIPEMIA HEMOLYSIS FLAG 80 (0-99); MEAN CELL HEMOGLOBIN 28.3 pg (27.9-34.1); MEAN CELL HEMOGLOBIN CONCENTR. 33.3 g/dL (32.4-36.7); MEAN CELL VOLUME 84.8 fL (81.5-99.8); MEAN PLATELET VOLUME 10.7 fL (8.7-11.7); PLATELET CLUMPS FLAG 10 (0-99); PLATELET COUNT 305 10^3/uL (150-400); RED BLOOD CELL COUNT 3.89 10^6/uL (4.40-6.38)
[2017-11-02 04:56] LABS: RED CELL DISTRIBUTION WIDTH 20.8 % (11.5-15.2)
[2017-11-02 05:12] LABS: HYPOCHROMIA 1+; MACROCYTES 1+; MICROCYTES 2+; PLATELET ESTIMATE ADEQUATE (ADEQ)
[2017-11-02 05:13] LABS: ALANINE AMINOTRANSFERASE 148 IU/L (21-72); ALBUMIN 2.2 g/dL (3.5-5.0); ALKALINE PHOSPHATASE 832 IU/L (38-126); ANION GAP 10 mEq/L (8-16); ASPARTATE AMINOTRANSFERASE 164 IU/L (17-59); BILIRUBIN,TOTAL 8.2 mg/dL (0.1-1.4); CALCIUM 7.6 mg/dL (8.5-10.4); CARBON DIOXIDE 24 mEq/l (22-31); CHLORIDE 105 mEq/L (97-110); CREATININE 0.8 mg/dL (0.7-1.3); GLOMERULAR FILTRATION RATE > 60; GLUCOSE 111 mg/dL (70-100); POTASSIUM 3.2 mEq/L (3.5-5.2); SODIUM 139 mEq/L (134-144); TOTAL PROTEIN 5.9 g/dL (6.3-8.2)
[2017-11-02 05:19] LABS: BILIRUBIN-CONJUGATED 7.1 mg/dL (0.0-0.5); BILIRUBIN-UNCONJUGATED 1.1 mg/dL (0.0-1.1)
[2017-11-02 05:30] LABS: INR 3.92 (0.83-1.16)
--- NOTE | 2017-11-02 09:32 | SOAPPROG ---
SOSERENA Progress Note Assessment/Plan: Assessment: still uncomfortable and jaundiced with multiple problems carcinomatosis with + cytology jaundice with obstructive pattern ? cholestatic vs cd stone vs cd obstruction from tumor I favor cholestatic since no mass seen on mri, us or ct and minimal ductal dilatation could consider ERCP to dfine if his jaundice and symptoms from it worsen Plan:palliative care 11/02/17 09:24 Objective: Vital Signs Temp Pulse Resp BP Pulse Ox 37.1 C 115 H 19 115/75 95 11/02/17 08:10 11/02/17 08:10 11/02/17 08:10 11/02/17 08:10 11/02/17 08:10 Laboratory Results 11/02/17 04:50 11/02/17 04:50 11/01/17 11/02/17 11/03/17 05:59 05:59 05:59 Intake Total 2239 1748 Output Total 2 Balance 2239 1746 PT 38.0 SEC (12.0-15.0) H 11/02/17 04:50 INR 3.92 (0.83-1.16) H 11/02/17 04:50 ICD10 Worksheet Patient Problems: Problems Problem Status Onset Colon cancer Acute Dehydration Acute Generalized weakness Acute Globus sensation Acute Nausea and vomiting Acute Shortness of breath Acute
[2017-11-02] MEDS ORDERED: FLUCONAZOLE/NaCl 100 ML IV SCH (10:00)
[2017-11-02] MEDS: SENNOSIDES/DOCUSATE SODIUM TAB PO SCH ×2 (10:29→20:06)
[2017-11-02] MEDS: PANTOPRAZOLE SODIUM 40 MG TAB PO SCH (10:29)
[2017-11-02] MEDS: NYSTATIN SUSP 500000 UNIT/5 ML UDCUP PO SCH ×4 (10:29→20:04)
[2017-11-02] MEDS: ERTAPENEM 1 GM VIAL IVP SCH (10:30)
--- NOTE | 2017-11-02 11:50 | SOAPPROG ---
SOAP Progress Note Assessment/Plan: E&M colon cancer * Stage IV colon cancer, KRAS wt, NRAS wt, BRAF mut, UGT1A1 heterozygous: last folfiri + avastin was 10/08. I suspect most of his problem is due to progression of the cancer as CT prior to this therapy showed new ascites and slight increase in a few nodes. He and the family is leaning toward more comfort care approach. If he improved significantly, we could consider trial of irinotecan + EGFR inhibitor. Couldn't use irinotecan today due to high bilirubin. * Jaundice and elevated LFT: biliary obs I suspect probably from cancer but nothing obvious. I spoke with Dr. Argueta and he isn't a surgical candidate at this time. I will have IR evaluate for external drain. If possible, I think this will give him more immediate relief. If his PFS significantly improves, could consider surgical options later. * Recent Pulmonary embolism within the past several weeks: current INR is supratherapeutic despite holding coumadin, no indication for bridging at this time. Get appetite and liver function better and then can re-assess anticoagulation. * Severe protein calorie malnutrition. recommended against TPN * Oral and possible esophageal thrush: will give a dose of diflucan. Unclear how often can safely repeat with liver dysfunction. If a lot better, may not need to. * Code status: long talk with patient and family. I recommended DNR/DNI. He verbally agreed. His is the designated surrogate medical power I spent >35 min with patient and family. Subjective: Throat still very sore and interfering po intake. Weak and no appetite. Family with patient. Objective: Vital Signs Temp Pulse Resp BP Pulse Ox 37.1 C 115 H 19 115/75 95 11/02/17 08:10 11/02/17 08:10 11/02/17 08:10 11/02/17 08:10 11/02/17 08:10 Laboratory Results 11/02/17 04:50 11/02/17 04:50 11/01/17 11/02/17 11/03/17 05:59 05:59 05:59 Intake Total 2239 1748 Output Total 2 Balance 2239 1746 PT 38.0 SEC (12.0-15.0) H 11/02/17 04:50 INR 3.92 (0.83-1.16) H 12/17/17 04:50 Physical Exam - Physical Exam General Appearance: no apparent distress EENT: scleral icterus (R), scleral icterus (L), No pharynx normal (thrush) Respiratory: decreased breath sounds Cardiac/Chest: tachycardia Abdomen: normal bowel sounds, soft, No distended Skin: jaundice ICD10 Worksheet Patient Problems: Problems Problem Status Onset Colon cancer Acute Dehydration Acute Generalized weakness Acute Globus sensation Acute Nausea and vomiting Acute Shortness of breath Acute
--- NOTE | 2017-11-02 12:08 | SOAPPROG ---
MILAN Progress Note Assessment/Plan: Assessment: mCR: No definite obstructive mass at sujit hepatis H/O prior duodenal surgery in [place] with unknown change in ductal anatomy. Unclear if patient would be ERCP candidate for internal stent placement. Recent US/MRCP show mild obstruction, not correlating to bilirubin of 8, but studies were also limited. INR of >4, with ascites: high risk for percutaneous access, with unclear definitive benefit with above imaging studies, and recent labs. Plan: 1. Repeat CT of abd with IVC to further assess degree of biliary obstruction, and to see if a cause can if identified if there is obstruction (compared to 10/17) 2. If no significant obstruction, consider consulting GI for endoscopic placement of biliary stent: at least that's less risky, given same uncertainty in benefit. 3. If significant obstruction, may be worth the percutaneous risk. Can then correct INR and drain ascites prior to PTC. Cause of obstruction, if at hilum, may make ERCP not amendable. 4. Discussed with DR. Noguera. 11/02/17 12:09 Objective: Vital Signs Temp Pulse Resp BP Pulse Ox 37.1 C 115 H 19 115/75 95 11/02/17 08:10 11/02/17 08:10 11/02/17 08:10 11/02/17 08:10 11/02/17 08:10 Laboratory Results 11/02/17 04:50 11/02/17 04:50 11/01/17 11/02/17 11/03/17 05:59 05:59 05:59 Intake Total 2239 1748 Output Total 2 Balance 2239 1746 PT 38.0 SEC (12.0-15.0) H 11/02/17 04:50 INR 3.92 (0.83-1.16) H 11/02/17 04:50 Chart reviewed. Imaging reviewed. ICD10 Worksheet Patient Problems: Problems Problem Status Onset Colon cancer Acute Dehydration Acute Generalized weakness Acute Globus sensation Acute Nausea and vomiting Acute Shortness of breath Acute
--- NOTE | 2017-11-02 14:21 | ASMTCMCOM ---
CM Note CM Note Notes: Met with Vaishnavi patient's and son-from [place]. They would like information regarding Hospice. This CM had [facility] come for more information. thinks that patient may be in the hospital getting tx's for comfort measures and that he may be returning home by Friday. thinks that when they go home they will be ready for Hospice. Not sure which Hospice goes to [place], where they reside. knows of someone in her neighborhood who can [place] She will let me know today so that we can be prepared for the end of the week discharge. Date Signed: 11/02/2017 02:21 PM Electronically Signed By:Hedy Merchant LCSW
[2017-11-02] MEDS ORDERED: IOPAMIDOL (ISOVUE-300) 100 ML BTL ONE (15:12)
[2017-11-02] MEDS ORDERED: LIDOCAINE 2% VISCOUS 15 ML UDCUP PO PRN (15:51)
--- NOTE | 2017-11-02 16:01 | HOSPPROG ---
Hospitalist Progress Note Assessment/Plan: Assessment: 67-year-old male presents with acalculous cholecystitis resulting in anorexia, nausea, and abdominal pain in the setting of stage IV colon cancer status post recent chemotherapy Plan: 1. Acalculous cholecystitis. Evidenced by ultrasound with hyperemic gallbladder and wall thickening, direct hyperbilirubinemia, no stone on MRCP and potentially 2/2 impaired hepatic drainage vs. mets -cont Invanz 1 g daily -treat supportively with IV pain medications and antiemetics, ongoing IV fluids -Dr. Noguera and I are not recommending open surg at this time, but a palliative IR drain by Dr. Agarwal tomorrow offers hope for less RUQ pain and temporary improvement in liver fxn 2. Pulmonary embolism. Acute within the past several weeks, present on this admission, identified prior to arrival and treated with systemic anticoagulation notably Coumadin -INR remains supratherapeutic despite remaining off coumadin, indicative of impaired liver fxn -cont monitor INR 3. Pressure injury. Present on admission, wound care consultation appreciated 4. Stage IV colon cancer. Patient is status post surgery at [facility], he is currently receiving chemotherapy with Dr. Murali Noguera as his primary oncologist -most recent chemotherapy 10/09/2017 -Dr. Noguera and I counseled patient during this hospitalization, outlining the specific chemotherapy options available, but also sharing that 1 of the 3 agents would not be possible due to liver impairment (which would likely reduce the overall efficacy of the tx) and that additional chemo would be only potentially adding weeks of survival time, with the anticipated side effect profile -we recommended hospice, agency consulted w/ family/patient today, plan is for palliative drain as above, and considering whether patient can transition home w / hospice around mid-week -counseled family extensively, overall focus is palliative, w/ son/ agreeing that quality time w/ patient is now paramount -patient much more lethargic today, suspect that all of his issues are progressing and functional status for home may not be possible, continue to consider SNF w/ hospice vs. GIP 5. Transaminitis. Most likely secondary to biliary obstruction as outlined above, may be resulting in degree of hepatic encephalopathy -get NH4 level -anticipate all pain Rx will have amplified effect 6. Malignant ascites. Would complicate potential surgery and prolonged healing 7. Gastroesophageal reflux disease. Patient with significant reflux, resulting in hoarseness, currently on Thorazine and PPI 8. Suspected severe protein calorie malnutrition. Patient's oral intake has recently been 0%, he has been experiencing notable weight loss, he is beginning to demonstrate proximal muscle wasting -dietary consultation appreciated -recommended that patient not start TPN as it would be low value intervention at this point given palliative approach 9. Possible eric esophagitis. Hx of eric, odynophagia despite optimal GERD tx, experiencing degree of dysphagia today -started nystatin, added fluconazole per Dr. Noguera -also add supportive viscous lidocaine -get SINGLE NEEDLE OPERATOR eval tomorrow 10. Ileus. Likely contributing to nausea, improved w/ suppository, now w/ more BMs Diet. As kady, encourage Prophylaxis. High risk patient, currently holding Coumadin and bridging, INR elevated Code. Full Disposition. Anticipated discharge uncertain this time, high risk morbidity/ mortality patient and high-level of medical complexity. Subjective: dysphagia today, odynophagia, having BMs, more lethargic Objective: Vital Signs Temp Pulse Resp BP Pulse Ox 37.0 C 111 H 17 137/80 H 92 11/02/17 12:50 11/02/17 12:50 11/02/17 12:50 11/02/17 12:50 11/02/17 12:50 Laboratory Results 11/02/17 04:50 11/02/17 04:50 11/01/17 11/02/17 11/03/17 05:59 05:59 05:59 Intake Total 2239 1748 Output Total 2 Balance 2239 1746 PT 38.0 SEC (12.0-15.0) H 11/02/17 04:50 INR 3.92 (0.83-1.16) H 11/02/17 04:50 - Time Spent With Patient Time Spent with Patient: greater than 35 minutes Time Spent with Patient: Greater than 35 minutes spent on this patients care, greater than 50% of time spent counseling, educating, and coordinating care regarding the above mentioned plan. - Physical Exam Constitutional: no apparent distress, chronically ill appearing, uncomfortable, cachectic, No not in pain (mild RUQ) Eyes: icteric sclera Ears, Nose, Mouth, Throat: other (posterior pharynx thrush) Gastrointestinal: normoactive bowel sounds, tenderness (RUQ), distension ( moderate, increased from day prior), No guarding Skin: other (worsening jaundice) Psychiatric: not anxious, not encephalopathic, flat affect, other (lethargic but arousable, slept during most of encounter today), No agitated ICD10 Worksheet Patient Problems: Problems Problem Status Onset Nausea and vomiting Acute Shortness of breath Acute Generalized weakness Acute Dehydration Acute Colon cancer Acute Globus sensation Acute
[2017-11-02] MEDS: POTASSIUM Cl (KCl) 40 MEQ in D5W 1/2 NS 1,000 ML IV SCH (17:22)
[2017-11-02] MEDS: TAMSULOSIN HCL 0.4 MG CAP PO SCH (20:04)
[2017-11-02] MEDS: diphenhydrAMINE 25 MG CAP PO PRN (22:21)
[2017-11-02] MEDS: HYDROmorphone HCL/NS/PF 0.4 MG/2 ML SYR IVP PRN (22:21)
[2017-11-03] MEDS: POTASSIUM Cl (KCl) 40 MEQ in D5W 1/2 NS 1,000 ML IV SCH ×2 (03:16→13:09)
[2017-11-03] MEDS: NYSTATIN SUSP 500000 UNIT/5 ML UDCUP PO SCH ×4 (04:59→21:40)
[2017-11-03 05:17] LABS: % IMMATURE GRANULYOCYTES 0.3 % (0.0-1.1); ABSOLUTE IMMATURE GRANULOCYTES 0.03 10^3/uL (0.00-0.10); ADD DIFF? NO; ADD MORPH? YES; ADD SCAN? NO; ATYPICAL LYMPHOCYTE FLAG 20 (0-99); FRAGMENT RBC FLAG 20 (0-99); HEMATOCRIT 32.9 % (40.0-51.0); HEMOGLOBIN 10.8 g/dL (13.7-17.5); LEFT SHIFT FLG 0 (0-99); LIPEMIA HEMOLYSIS FLAG 80 (0-99); MEAN CELL HEMOGLOBIN 27.8 pg (27.9-34.1); MEAN CELL HEMOGLOBIN CONCENTR. 32.8 g/dL (32.4-36.7); MEAN CELL VOLUME 84.8 fL (81.5-99.8); MEAN PLATELET VOLUME 10.9 fL (8.7-11.7); PLATELET CLUMPS FLAG 0 (0-99); PLATELET COUNT 336 10^3/uL (150-400); RED BLOOD CELL COUNT 3.88 10^6/uL (4.40-6.38)
[2017-11-03 05:19] LABS: RED CELL DISTRIBUTION WIDTH 21.2 % (11.5-15.2)
[2017-11-03 05:29] LABS: INR 4.66 (0.83-1.16); PROTIME(PATIENT) 43.4 SEC (12.0-15.0)
[2017-11-03 05:30] LABS: APTT 63.5 SEC (23.0-38.0)
[2017-11-03 05:41] LABS: HYPOCHROMIA 1+; MACROCYTES 1+; MICROCYTES 1+; PLATELET ESTIMATE ADEQUATE (ADEQ)
[2017-11-03 05:42] LABS: ALANINE AMINOTRANSFERASE 140 IU/L (21-72); ALBUMIN 2.2 g/dL (3.5-5.0); ALKALINE PHOSPHATASE 817 IU/L (38-126); ANION GAP 8 mEq/L (8-16); ASPARTATE AMINOTRANSFERASE 170 IU/L (17-59); CALCIUM 7.6 mg/dL (8.5-10.4); CARBON DIOXIDE 23 mEq/l (22-31); CHLORIDE 108 mEq/L (97-110); CREATININE 0.8 mg/dL (0.7-1.3); GLOMERULAR FILTRATION RATE > 60; GLUCOSE 109 mg/dL (70-100); MAGNESIUM 1.9 mg/dL (1.6-2.3); POTASSIUM 3.6 mEq/L (3.5-5.2); SODIUM 139 mEq/L (134-144); TOTAL PROTEIN 5.8 g/dL (6.3-8.2); TRIGLYCERIDE 193 mg/dL (40-150)
[2017-11-03 05:49] LABS: BILIRUBIN-CONJUGATED 7.8 mg/dL (0.0-0.5); BILIRUBIN-UNCONJUGATED 1.2 mg/dL (0.0-1.1)
[2017-11-03] MEDS: ERTAPENEM 1 GM VIAL IVP SCH (10:09)
[2017-11-03] MEDS: PANTOPRAZOLE SODIUM 40 MG TAB PO SCH (10:10)
--- NOTE | 2017-11-03 10:12 | HOSPPROG ---
Hospitalist Progress Note Assessment/Plan: DIAGNOSES: # rising bilirubin, question of obstruction versus cholestasis not entirely clarified by imaging studies # right upper quadrant abdominal pain, some gallbladder wall thickening with high bilirubin; -question of acalculous cholecystitis, but no fever and no improvement with antibiotics -not felt to be a candidate for surgery per Dr. Calles # malignant ascites with discomfort related to that # persistent sinus tachycardia present since admission, unclear if this is related to his biliary disease, his recent PEs, or otherwise. -there has been no fever, he is not bleeding, does not complain of shortness of breath, renal function stable, no improvement with antibiotic # recent pulmonary emboli, anticoagulation currently held however INR continuing to rise 4.6 today -rising INR could potentially be hepatic synthetic problem as he has had no medicine since heparin on the # metastatic colon cancer I have reviewed the case in detail today with Dr. Agarwal and Dr. Pantoja and placed a call to Dr. Morena Vásquez. Dr. Agarwal is concerned that the ascites and high INR will make percutaneous drainage potentially unsafe and she is not certain based on the imaging studies that it is highly likely to be beneficial. As best I can tell it a railroad engineer has not yet been gauge so will talk to Dr. Vásquez. other like to review the imaging studies with him further. There is suggestion from CT scan and MR that there is bile duct dilation though on the ultrasound it appears to be intra hepatic only and mild. MRCP images were suboptimal with motion artifact. It may be that an ERCP would be the only way to clarify but I would like further review with GI and Radiology. Stenting would only be useful if there were an amenable more distal obstruction. If there is nothing amenable to stenting we would have to determine whether this is all cholestatic or more proximal obstruction. In the latter case percutaneous drainage may help but would need to trying get his INR reversed. Hard to tell how well the INR room will reverse as I am not certain whether it is rising from synthetic dysfunction or not. I have reviewed all of this in great detail with the patient and family at the bedside today. PLANS: -continue pain management and supportive care -will discuss with Dr. Vásquez when he calls -further decisions after discussion between GI, Radiology, Oncology and myself -may need to attempt reversal of INR if we are considering percutaneous procedure, continue to hold anticoagulant now as INR high -I have asked the nurses to be attentive and make sure patient is getting enough medication doses for pain -will give a fluid bolus to see if his tachycardia response to that at all, but follow his vital signs very closely -will have further discussion with Dr. Pantoja. It is unclear to me since it sounds like we are in primarily a palliative direction at this time, whether the discussion around chemotherapy was to look at a palliative chemotherapy or whether the discussion around chemotherapy will be put aside with the change to a palliative direction -will need to follow INR closely as well as other lab data for the time being SUBJECTIVE: The patient still has significant pain mostly in the right upper quadrant of the abdomen, not getting very many pain medicine doses OBJECTIVE Vitals reviewed: Remains tachycardic, but no fever and normal blood pressures respirations and temperature is normal Exam: alert oriented skin warm dry color ok resps not labored lungs clear BSs heart regular abd more distended today with palpable ascites, getting slightly tighter but not really tense yet, still with right upper quadrant tenderness no rebound, bowel sounds present limbs warm, no edema iv site ok Labs reviewed: Bilirubin continues to increase up to 9 today INR continues to increase up to 4.6 today, last anti coagulant was some heparin on 10/31 I reviewed the images from last evening CT scan, the biliary system is very complex and I will need to review it further with Dr. Vásquez and radiologist. There are some complex abnormalities within the liver parenchyma that are subtle and of uncertain etiology. I do not see pancreatitis per se. Objective: Vital Signs Temp Pulse Resp BP Pulse Ox 37.2 C 110 H 28 H 132/82 H 92 11/03/17 08:00 11/03/17 08:00 11/03/17 08:00 11/03/17 08:00 11/03/17 08:00 Laboratory Results 11/03/17 05:10 11/03/17 05:10 11/02/17 11/03/17 11/04/17 06:59 06:59 06:59 Intake Total 1748 1242 Output Total 2 250 Balance 1746 992 PT 43.4 SEC (12.0-15.0) H 11/03/17 05:10 INR 4.66 (0.83-1.16) H 11/03/17 05:10 ICD10 Worksheet Patient Problems: Problems Problem Status Onset Colon cancer Acute Dehydration Acute Generalized weakness Acute Globus sensation Acute Nausea and vomiting Acute Shortness of breath Acute
[2017-11-03] MEDS: HYDROmorphone HCL/NS/PF 0.4 MG/2 ML SYR IVP PRN ×3 (10:18→21:40)
[2017-11-03] MEDS: MBX SOLN 30 ML BOTTLE PO PRN ×2 (10:26→21:46)
--- NOTE | 2017-11-03 11:04 | SOAPPROG ---
MILAN Progress Note Assessment/Plan: Assessment: [facility]: No definite obstructive mass at sujit hepatis H/O prior duodenal surgery in [place] with unknown change in ductal anatomy. Unclear if patient would be ERCP candidate for internal stent placement. Recent US/MRCP show mild obstruction, not correlating to bilirubin of 8, but studies were also limited. INR of >4, with ascites: high risk for percutaneous access, with unclear definitive benefit with above imaging studies, and recent labs. Plan: 1. Repeat CT of abd with IVC to further assess degree of biliary obstruction, and to see if a cause can if identified if there is obstruction (compared to 10/17) 2. If no significant obstruction, consider consulting GI for endoscopic placement of biliary stent: at least that's less risky, given same uncertainty in benefit. 3. If significant obstruction, may be worth the percutaneous risk. Can then correct INR and drain ascites prior to PTC. Cause of obstruction, if at hilum, may make ERCP not amendable. 4. Discussed with DR. Noguera. 11/02/17 12:09 11/03/17 11:02 Biliary obstruction has increased comparing yesterday's CT to 10/17. Patient could benefit from biliary stent/drain placement. Would need INR <2 if IR is to do percutaneous approach. Consider getting GI involved while working on trending INR down to see if they can place internal stent. If they are not able to do due to anatomic reasons, IR can do percutaneous drain placement with INR <2, and paracentesis (which can be done in IR at same time). Objective: Vital Signs Temp Pulse Resp BP Pulse Ox 37.2 C 110 H 28 H 132/82 H 92 11/03/17 08:00 11/03/17 08:00 11/03/17 08:00 11/03/17 08:00 11/03/17 08:00 Laboratory Results 11/03/17 05:10 11/03/17 05:10 11/02/17 11/03/17 11/04/17 05:59 05:59 05:59 Intake Total 1748 1242 Output Total 2 250 Balance 1746 992 PT 43.4 SEC (12.0-15.0) H 11/03/17 05:10 INR 4.66 (0.83-1.16) H 11/03/17 05:[address] AND LABS ARE REVIEWED ICD10 Worksheet Patient Problems: Problems Problem Status Onset Colon cancer Acute Dehydration Acute Generalized weakness Acute Globus sensation Acute Nausea and vomiting Acute Shortness of breath Acute
[2017-11-03] MEDS: SENNOSIDES/DOCUSATE SODIUM TAB PO SCH (11:54)
--- NOTE | 2017-11-03 14:10 | SOAPPROG ---
SOAP Progress Note Assessment/Plan: Assessment: E&M colon cancer * Stage IV colon cancer, KRAS wt, NRAS wt, BRAF mut, UGT1A1 heterozygous: last folfiri + avastin was 10/08. I suspect most of his problem is due to progression of the cancer as CT prior to this therapy showed new ascites and slight increase in a few nodes. If he improved significantly, we could consider trial of irinotecan + EGFR inhibitor. Couldn't use irinotecan today due to high bilirubin. * Jaundice and elevated LFT: biliary obs I suspect probably from cancer but nothing obvious. GI consultation appreciated. Patient and would like to attempt and ERCP to relieve obstruction if possible. He will need correction of his coagulopathy before the procedure. * Recent Pulmonary embolism within the past several weeks: current INR is supratherapeutic despite holding coumadin. He will need FFP/vitamin K for reversal. * Severe protein calorie malnutrition. recommended against TPN * Oral and possible esophageal thrush: will give a dose of diflucan. Unclear how often can safely repeat with liver dysfunction. If a lot better, may not need to. * Code status: long talk with patient and family. I recommended DNR/DNI. He verbally agreed. His is the designated surrogate medical power I spent >35 min with patient and family. Plan: Vitamin K today (1mg). FFP 2 units in AM then recheck INR - target about 1.5 or less Subjective: Sleeping during part of the interview, but clearly states he wants to try the ERCP Objective: Vital Signs Temp Pulse Resp BP Pulse Ox 37.2 C 110 H 28 H 132/82 H 92 11/03/17 08:00 11/03/17 08:00 11/03/17 08:00 11/03/17 08:00 11/03/17 08:00 Laboratory Results 11/03/17 05:10 11/03/17 05:10 11/01/17 11/02/17 11/03/17 23:59 23:59 23:59 Intake Total 1439 1598 1142 Output Total 2 250 Balance 1439 1596 892 PT 43.4 SEC (12.0-15.0) H 11/03/17 05:10 INR 4.66 (0.83-1.16) H 11/03/17 05:10 Physical Exam - Physical Exam General Appearance: cachetic EENT: scleral icterus (R), scleral icterus (L) Cardiac/Chest: regular rate, rhythm Abdomen: distended Neuro/Psych: other (somnolent but rousable to voice) ICD10 Worksheet Patient Problems: Problems Problem Status Onset Colon cancer Acute Dehydration Acute Generalized weakness Acute Globus sensation Acute Nausea and vomiting Acute Shortness of breath Acute
[2017-11-03] MEDS ORDERED: PHYTONADIONE 1 MG/0.5 ML INJ IM ONE (14:15)
[2017-11-03] MEDS ORDERED: PHYTONADIONE 1 MG in NS 50 ML IV ONE (15:00)
--- NOTE | 2017-11-03 15:45 | ASMTCMCOM ---
CM Note CM Note Notes: Received a call from Trung at [facility] #[phone]. [facility] was on site on Friday, 11/02, to complete an informational meeting with family. Confirmed with Trung [facility] will accept patient given [place] address. Discussed with RN, current plan is to attempt ERCP and stent placement. RN also stated family was pleased with [facility] after informational meeting. At this time, it is undecided if patient and family are for sure ready to proceed with hospice, more tbd. Case Management will follow-up on Friday. Face sheet sent to [facility] via [employer]. Will wait to send further information until receive confirmation from family. Current Plan: TBD, possible Hospice with [facility]. Date Signed: 11/03/2017 03:45 PM Electronically Signed By:An Ladd RN
[2017-11-03] MEDS: ONDANSETRON 4 MG/2 ML VIAL IVP PRN (18:45)
[2017-11-03] MEDS: TAMSULOSIN HCL 0.4 MG CAP PO SCH (21:41)
[2017-11-03] MEDS: diphenhydrAMINE 25 MG CAP PO PRN (21:41)
[2017-11-04] MEDS: SENNOSIDES/DOCUSATE SODIUM TAB PO SCH ×3 (00:14→20:47)
[2017-11-04] MEDS: POTASSIUM Cl (KCl) 40 MEQ in D5W 1/2 NS 1,000 ML IV SCH ×2 (00:28→17:16)
[2017-11-04] MEDS: HYDROmorphone HCL/NS/PF 0.4 MG/2 ML SYR IVP PRN ×3 (01:28→22:39)
--- NOTE | 2017-11-04 01:37 | GCON ---
[f rep st] CONSULTATION REFERRING PHYSICIAN: Stanley Pantoja MD REASON FOR CONSULTATION: Abdominal pain, jaundice. CHIEF COMPLAINT: Jaundice. HISTORY OF PRESENT ILLNESS: Briefly, the patient is a pleasant 67-year-old male , who was admitted to the hospital on 10/29/2017, with a chief complaint of nausea, vomiting, and dehydration. He has a past medical history significant for metastatic colon cancer. He has malignant ascites as well as intermittent SBP. He had completed a course of antibiotics. His cancer treatment has also been complicated by the development of pulmonary embolism, for which he is on anticoagulation. He had been on chemotherapy throughout the last year. Problems with nausea and discomfort were frequent during chemotherapy sessions. He has had prior poor appetite and has even required TPN. Prior to admission, he was having increasing degree of right upper quadrant pain as well as jaundice, and difficulty with p.o. intake. His hospital stay has been uncomplicated, but notable for increasing degree of jaundice and elevations in bilirubin. Imaging is suggestive of bile duct obstruction. REVIEW OF SYSTEMS: A complete 10-point review was undertaken with the patient, along with his , and the relevant positives and negatives are detailed in the history of present illness. PAST MEDICAL HISTORY: Includes metastatic colon cancer, SBP, pulmonary embolism , reflux esophagitis and hiccups, as well as chronic tachycardia. CURRENT MEDICATIONS: Include Tylenol, Dulcolax, Thorazine, Benadryl, Invanz, Mucinex, hydromorphone, Cephulac, lidocaine, Milk of Magnesia, oral nystatin, Zofran, Protonix, vitamin K, MiraLAX, Compazine, Phenergan, Flomax, Senokot. SOCIAL HISTORY: He does not drink, smoke, or use drugs. FAMILY HISTORY: Negative for colon cancer. PHYSICAL EXAM: This is a chronically ill-appearing male, in no apparent distress. His pupils are equal, round, reactive to light, and accommodation. His sclerae are anicteric. Neck is supple without lymphadenopathy. Cardiovascular exam reveals tachycardia without murmur. Abdomen reveals decreased breath sounds throughout, somewhat distended abdomen. Lung exam reveals good respiratory effort with clear auscultation bilaterally. Extremities show no clubbing, cyanosis, or edema. Neuro exam is grossly nonfocal. Psych exam reveals stable mood and affect. Joint exam reveals no arthritis. LABORATORY TESTING: A white count of 10.55, hemoglobin of 10.8, hematocrit of 32.9, platelet count of 336. INR of 4.66. Sodium of 139, potassium of 3.6, chloride of 108, bicarb of 23, BUN of 9, creatinine of 0.8. Total bilirubin of 9, conjugated bilirubin of 7.8, unconjugated bilirubin of 1.2, AST of 170, ALT of 140, alkaline phosphatase of 817, albumin of 2.2. CT scan of the abdomen and pelvis on 11/02/2017, reveals [id number] left and mild right biliary ductal dilation, with no definitive etiology. Increased conspicuity of ill-defined geographic hypodensities in the liver without defined masses. Increased rectal thickening and ascites. Abdominal MRI on 10/31/2017, is complicated by motion artifact, but shows biliary dilation with abrupt transition in the hilum without visible mass. Hepatobiliary scan on 10/30/2017, reveals uptake of tracer into the liver without excretion after a 2-hour delay; etiology is indeterminate. Could be cholestasis or other bile duct obstruction. Abdominal ultrasound on 10/29/2017, reveals mild left intrahepatic ductal dilation without extrahepatic ductal dilation. Abnormal gallbladder wall thickening with hyperemia. IMPRESSION AND RECOMMENDATIONS: Overall, the course of his bilirubin in association with abnormal bile duct findings is concerning for biliary ductal obstruction. He is becoming increasingly symptomatic with decreased appetite, right upper quadrant pain, and pruritus. He is at risk to develop complications , such as cholangitis and sepsis. A lengthy discussion was had with the patient and his as to potential endoscopic workup of this scenario. This could include endoscopic retrograde cholangiography with stent placement; in hopes that resolving and identifying bile duct obstruction will improve his quality of life. A adriel discussion was had about the relative risks of this. In addition, that it is unlikely to have a meaningful impact on his overall life span. The patient and his family were comfortable with the risks and benefits, and would like to proceed. Of note, his INR is elevated. This is likely related to poor nutritional status in the setting of recent Coumadin use. Prior to considering ERCP, this will need to be reversed. Ideally, INR less than 1.6. Given his comorbidities , age, etc., and the likely prolonged nature of an ERCP procedure, we will obtain anesthesia support for his exam. /[id number]/MODL MTDD
[2017-11-04 05:08] LABS: INR 1.42 (0.83-1.16); PROTIME(PATIENT) 17.5 SEC (12.0-15.0)
[2017-11-04] MEDS: NYSTATIN SUSP 500000 UNIT/5 ML UDCUP PO SCH ×4 (05:43→20:47)
[2017-11-04] MEDS: MBX SOLN 30 ML BOTTLE PO PRN (05:44)
[2017-11-04] MEDS: ERTAPENEM 1 GM VIAL IVP SCH (08:52)
[2017-11-04] MEDS: PANTOPRAZOLE SODIUM 40 MG TAB PO SCH (08:53)
[2017-11-04] MEDS ORDERED: GLUCAGON HCL 1 MG VIAL ONE (09:24)
[2017-11-04] MEDS ORDERED: IOTHALAMATE MEG (CONRAY) 50 ML VIAL IV ONE (09:24)
--- NOTE | 2017-11-04 10:36 | PDANEPAE ---
ANE Past Medical History - Cardiovascular History Hx Hypertension: No Hx Arrhythmias: No Hx Chest Pain: No Hx Coronary Artery / Peripheral Vascular Disease: No Hx CHF / Valvular Disease: No Hx Palpitations: No - Pulmonary History Hx COPD: No Hx Asthma/Reactive Airway Disease: No Hx Recent Upper Respiratory Infection: No Hx Oxygen in Use at Home: No Hx Sleep Apnea: Yes Sleep Apnea Screening Result - Last Documented: Positive - Endocrine History Hx Diabetes: No Hypothyroid: No Hyperthyroid: No Obesity: no - Liver History Hx Hepatic Disorders: Yes - Cancer History Hx Cancer: Yes Cancer History Comment: colon CA - GI History Hx Gastrointestinal Disorders: Yes - Other Health History Other Health History: dyslipidemia. ascites - Chronic Pain History Chronic Pain: No ANE Review of Systems Review of Systems: - Exercise capacity METS (RN): 3 METS - Systems Respiratory: Reports: shortness of breath Gastrointestinal: Reports: abdominal distention ANE Patient History - Allergies Allergies/Adverse Reactions: lorazepam Allergy (Intermediate, Verified 10/18/17 09:37) Other-Enter Comments - Home Medications Home Medications: Tamsulosin HCl [Flomax 0.4 MG (*)] 0.4 mg PO HS 07/20/17 [Last Taken 10/28/17] Atorvastatin Calcium [Lipitor 20 mg (*)] 20 mg PO DAILY18 10/14/17 [Last Taken 10/28/17] Herbals/Supplements -Info Only 1 ea PO DAILY 10/14/17 [Last Taken Unknown] Prochlorperazine Maleate [Compazine 25mg supp (*)] 25 mg SD DAILY PRN 10/29/17 [ Last Taken 10/29/17] diphenhydrAMINE [Benadryl 25 MG (*)] 25 mg PO HS PRN 10/29/17 [Last Taken ] guaiFENesin [Mucinex 600 MG (*)] 600 mg PO BID PRN 10/29/17 [Last Taken 10/29/17 ] - NPO status NPO Since - Liquids (Date): 11/04/17 NPO Since - Liquids (Time): 00:00 NPO Since - Solids (Date): 11/03/17 NPO Since - Solids (Time): 18:00 - Anes Hx Anes Hx: no prior problems - Smoking Hx Smoking Status: Former smoker - Family Anes Hx Family Anes Hx: neg - N/A ANE Labs/Vital Signs - Labs Result Diagrams: 11/03/17 05:10 11/03/17 05:10 - Vital Signs Blood Pressure: 129/86 Heart Rate: 110 Respiratory Rate: 22 O2 Sat (%): 93 Height: 172.72 cm Weight: 66.5 kg ANE Physical Exam - Airway Neck exam: decreased ROM Mallampati Score: Class 2 Mouth exam: poor dentition, dunlap - Pulmonary Pulmonary: no rales or rhonchi, clear to auscultation, respiratory distress - Cardiovascular Cardiovascular: no murmur, rub, or gallop, tachycardia - ASA Status ASA Status: III ANE Anesthesia Plan Anesthesia Plan: general endotracheal anesthesia Total IV Anesthesia: No
--- NOTE | 2017-11-04 10:54 | PDGENHP ---
History & Physical Chief Complaint: Obstructive jaundice, metastatic colon cancer Relevant Physical Exam: GEN: NAD. Cardiac: RRR. Lungs: Decreased breath sounds at the lung bases. Abd: Distended with ascites
[2017-11-04] MEDS ORDERED: PROPOFOL/EMULSION 500 MG/50 ML BOTTLE IV ONE (10:55)
[2017-11-04] MEDS ORDERED: fentaNYL 100 MCG/2 ML INJ ONE (10:55)
[2017-11-04] MEDS ORDERED: REMIFENTANIL HCL 1 MG VIAL ONE (10:55)
[2017-11-04] MEDS ORDERED: ROCURONIUM 50 MG/5 ML VIAL ONE (11:00)
[2017-11-04] MEDS ORDERED: DEXAMETHASONE 4 MG/ML VIAL ONE (11:00)
[2017-11-04] MEDS ORDERED: PHENYLEPHRINE HCL 100 MCG/ML SYR ONE (11:22)
[2017-11-04] MEDS ORDERED: ONDANSETRON 4 MG/2 ML VIAL IVP PRN (11:34)
[2017-11-04] MEDS ORDERED: LR 500 ML IV PRN (11:34)
[2017-11-04] MEDS ORDERED: fentaNYL 100 MCG/2 ML INJ IVP PRN (11:34)
[2017-11-04] MEDS ORDERED: NALOXONE HCL 0.4 MG/ML INJ IVP PRN (11:34)
[2017-11-04] MEDS ORDERED: PHENYLEPHRINE 10 MG/ML SDV ONE (11:39)
[2017-11-04] MEDS ORDERED: CALCIUM CHLORIDE 1 GM/10 ML INJ ONE (11:49)
[2017-11-04] MEDS ORDERED: SUGAMMADEX SODIUM 200 MG/2 ML VIAL IVP ONE (12:11)
--- NOTE | 2017-11-04 12:55 | POSTANESTH ---
Post Anesthetic Evaluation Cardiovascular Status: Normal, Stable Respiratory Status: Normal, Stable Level of Consciousness/Mental Status: Can Participate in Eval Pain Control: Adequate, Prn Tx Ordered Nausea/Vomiting Control: Adequate, Prn Tx Ordered Complications Possibly Related to Anesthesia: None Noted
--- NOTE | 2017-11-04 13:25 | GIREPORT ---
[facility] Surgical Services - Endoscopy Department Patient Name: Medardo Thomas Procedure Date: 11/04/2017 10:36 AM Patient Type: Inpatient Attending MD/ ER Physician: Joss Alex MD Procedure: ERCP Indications: Jaundice, metastatic colon cancer, ascites. Providers: Joss Alex MD Medicines: General Anesthesia Complications: No immediate complications. Description of Procedure: After obtaining informed consent, the scope was passed under direct vis ion. Throughout the procedure, the patient's blood pressure, pulse, and oxyg en saturations were monitored continuously. The Duodenalscope was introduc ed through the mouth, and advanced to the duodenum without successful cannulation. The ERCP was accomplished without difficulty. The patient tolerated the procedure well. Findings: The upper GI tract was traversed under direct vision without detailed examination. The major papilla was near a large duodenal diverticulum. The major papilla was edematous and bulging. The hydratome catheter and preloaded guidewire were used to attempt bile duct cannulation. After repeated attempts, I was unable to cannulate either the bile duct or pancreatic duct. Estimated Blood Loss: Estimated blood loss: none. Post Op Diagnosis: - The major papilla was some distance away from a diverticulum. - The major papilla appeared edematous and bulging. - Failed bile duct cannulation attempt. Recommendation: - Return patient to [facility] for ongoing care. - Consider PTC by intervential radiology - Clear liquid diet, advance as tolerated - Thank you for allowing me to participate in the care of your patient Attending Participation: I personally performed the entire procedure. Joss Alex MD Joss Alex MD 11/04/2017 1:24:53 PM This report has been signed electronicallyDaalla Alex MD Number of Addenda: 0 Note Initiated On: 11/04/2017 10:36 AM [email or web address]
--- NOTE | 2017-11-04 13:29 | HOSPPROG ---
Hospitalist Progress Note Assessment/Plan: DIAGNOSES: # rising bilirubin, question of obstruction versus cholestasis not entirely clarified by imaging studies # right upper quadrant abdominal pain, some gallbladder wall thickening with high bilirubin; -question of acalculous cholecystitis, but no fever and no improvement with antibiotics -not felt to be a candidate for surgery per Dr. Calles # malignant ascites with discomfort related to that # persistent sinus tachycardia present since admission, unclear if this is related to his biliary disease, his recent PEs, or otherwise. -there has been no fever, he is not bleeding, does not complain of shortness of breath, renal function stable, no improvement with antibiotic # recent pulmonary emboli, anticoagulation currently held however INR continuing to rise 4.6 today -rising INR could potentially be hepatic synthetic problem as he has had no medicine since heparin on the # metastatic colon cancer PLANS: -continue pain management and supportive care -will arrange for a paracentesis for symptom relief at this time -resume heparin drip after that procedure -will likely need some albumin along with his paracentesis particularly given his tachycardia right now -further decisions after discussion between GI, Radiology, Oncology and myself regarding potential feasibility, safety and utility of percutaneous biliary drainage SUBJECTIVE: Today the patient still has the same right upper quadrant pain, unchanged from yesterday No symptoms to suggest fever Mild dyspnea today and difficulty getting a deep breath but no cough or chest pain OBJECTIVE Vitals reviewed: Remains tachycardic, and respiratory rate a bit higher today, no fever or hypotension Exam: alert oriented skin warm dry color ok resps not labored lungs clear BSs heart regular abd again distended today with palpable ascites, now at bit more tense yet, still with right upper quadrant tenderness no rebound, bowel sounds present limbs warm, no edema iv site ok Labs reviewed: INR down to 1.4 today after vitamin K and plasma yesterday Reviewed results of attempted MRCP today with Dr. Vásquez. The procedure was performed but were unable to cannulate the common duct, so there were no imaging studies procedures done and no new information available from this study. Objective: Vital Signs Temp Pulse Resp BP Pulse Ox 36.8 C 106 H 39 H 128/83 H 96 11/04/17 12:29 11/04/17 12:29 11/04/17 13:01 11/04/17 13:01 11/04/17 13:01 Laboratory Results 11/03/17 05:10 11/03/17 05:10 11/03/17 11/04/17 11/05/17 06:59 06:59 06:59 Intake Total 1242 2540 Output Total 250 Balance 992 2540 PT 17.5 SEC (12.0-15.0) H D 11/04/17 04:10 INR 1.42 (0.83-1.16) H 11/04/17 04:10 - Time Spent With Patient Time Spent with Patient: greater than 35 minutes Time Spent with Patient: Greater than 35 minutes spent on this patients care, greater than 50% of time spent counseling, educating, and coordinating care regarding the above mentioned plan. ICD10 Worksheet Patient Problems: Problems Problem Status Onset Colon cancer Acute Dehydration Acute Generalized weakness Acute Globus sensation Acute Nausea and vomiting Acute Shortness of breath Acute
[2017-11-04] MEDS ORDERED: LIDOCAINE 1% 300 MG/30 ML SDV ONE (14:21)
--- NOTE | 2017-11-04 16:16 | ASMTCMCOM ---
CM Note CM Note Notes: Paracentesis planned with possible drain placement. PT recommending home care. CM did not discuss with them today - pt's has provided all care needs up until now and they live in the [facility] They have also discussed possible hospice care with [facility]. [facility] has said they are able to provide care to pt where he lives. Will re-approach as d/c gets closer. Date Signed: 11/04/2017 04:16 PM Electronically Signed By:CISCO Tsai
[2017-11-04] MEDS ORDERED: HEPARIN 10,000 UNIT/10 ML MDV IVP ONE (16:27)
[2017-11-04 16:40] LABS: GLUCOSE, PERITONEAL FLUID < 20 mg/dL (55-113)
[2017-11-04 17:06] LABS: % IMMATURE GRANULYOCYTES 0.6 % (0.0-1.1); ABSOLUTE IMMATURE GRANULOCYTES 0.09 10^3/uL (0.00-0.10); ADD DIFF? NO; ADD MORPH? YES; ADD SCAN? NO; ATYPICAL LYMPHOCYTE FLAG 10 (0-99); FRAGMENT RBC FLAG 40 (0-99); HEMATOCRIT 32.8 % (40.0-51.0); HEMOGLOBIN 10.7 g/dL (13.7-17.5); LEFT SHIFT FLG 0 (0-99); LIPEMIA HEMOLYSIS FLAG 80 (0-99); MEAN CELL HEMOGLOBIN 27.9 pg (27.9-34.1); MEAN CELL HEMOGLOBIN CONCENTR. 32.6 g/dL (32.4-36.7); MEAN CELL VOLUME 85.6 fL (81.5-99.8); PLATELET CLUMPS FLAG 0 (0-99); PLATELET COUNT 327 10^3/uL (150-400); RED BLOOD CELL COUNT 3.83 10^6/uL (4.40-6.38)
[2017-11-04 17:09] LABS: RED CELL DISTRIBUTION WIDTH 21.1 % (11.5-15.2)
[2017-11-04 17:10] LABS: INR 1.28 (0.83-1.16); PROTIME(PATIENT) 16.2 SEC (12.0-15.0)
[2017-11-04 17:11] LABS: APTT 37.4 SEC (23.0-38.0)
[2017-11-04 17:33] LABS: HYPOCHROMIA 1+; MACROCYTES 1+; MICROCYTES 2+; PLATELET ESTIMATE ADEQUATE (ADEQ)
[2017-11-04] MEDS: HEPARIN/DEXTROSE 500 ML IV SCH (18:30)
[2017-11-04] MEDS: TAMSULOSIN HCL 0.4 MG CAP PO SCH (20:47)
[2017-11-04] MEDS: diphenhydrAMINE 25 MG CAP PO PRN (22:38)
[2017-11-05] MEDS: POTASSIUM Cl (KCl) 40 MEQ in D5W 1/2 NS 1,000 ML IV SCH ×2 (04:44→15:37)
[2017-11-05] MEDS: NYSTATIN SUSP 500000 UNIT/5 ML UDCUP PO SCH ×4 (06:10→21:49)
[2017-11-05 06:42] LABS: ANION GAP 10 mEq/L (8-16); CALCIUM 8.6 mg/dL (8.5-10.4); CARBON DIOXIDE 21 mEq/l (22-31); CHLORIDE 109 mEq/L (97-110); CREATININE 0.8 mg/dL (0.7-1.3); GLOMERULAR FILTRATION RATE > 60; GLUCOSE 139 mg/dL (70-100); MAGNESIUM 1.9 mg/dL (1.6-2.3); POTASSIUM 4.6 mEq/L (3.5-5.2); SODIUM 140 mEq/L (134-144)
[2017-11-05] MEDS: HEPARIN 10,000 UNIT/10 ML MDV IVP PRN ×2 (08:00→16:18)
[2017-11-05] MEDS: ERTAPENEM 1 GM VIAL IVP SCH (08:01)
[2017-11-05] MEDS: SENNOSIDES/DOCUSATE SODIUM TAB PO SCH ×2 (08:04→23:22)
[2017-11-05] MEDS: PANTOPRAZOLE SODIUM 40 MG TAB PO SCH (08:04)
[2017-11-05] MEDS: HYDROmorphone HCL/NS/PF 0.4 MG/2 ML SYR IVP PRN ×2 (09:00→11:27)
--- NOTE | 2017-11-05 10:44 | GCON ---
[f rep st] CONSULTATION DATE OF CONSULTATION: 10/30/2017 CHIEF COMPLAINT: Cholelithiasis. HISTORY OF PRESENT ILLNESS: Medardo Thomas is a 67-year-old man with a history of metastatic colon cancer. He has a history of progressive colon cancer and has not been tolerating FOLFIRI due to diarrhea. He has also recently been diagnosed with a pulmonary embolism. He presented due to dehydration, nausea and vomiting. At home, he was eating a minimal amount of food and was essentially being spoon fed by his . He has a sore throat and difficulty swallowing. He has also lost a considerable amount of weight, even more pronounced in the past 2 weeks. He was on TPN at home. PAST MEDICAL HISTORY: 1. Metastatic colon cancer. 2. Pulmonary embolism. 3. Malignant ascites. 4. Urinary retention. 5. Reflux esophagitis. 6. Chronic tachycardia. PAST SURGICAL HISTORY: ,Surgery for his colon as well as on his duodenum. SOCIAL HISTORY: Nonsmoker no alcohol. Review of systems: Per HPI, otherwise 10 point negative PHYSICAL EXAMINATION: GENERAL: Family at bedside. Lying in bed. Thin. Pleasant. HEENT: Normocephalic. Slight scleral icterus. No gross hearing deficits. Laryngitis. LUNGS: Clear to auscultation bilaterally. Decreased at bases. CARDIAC: Tachycardic. ABDOMEN: He is tender in the left upper quadrant. Bowel sounds are present. No rebound tenderness. EXTREMITIES: Normal nails. SKIN: Slight jaundice. NEUROLOGIC: Grossly intact. Oriented. PSYCHIATRIC: Mood and affect normal. LAB RESULTS: I personally reviewed the results of his abdominal ultrasound as well as his LFTs. IMPRESSION/PLAN: Medardo Thomas is a 67-year-old with history of metastatic colon cancer, including malignant ascites, rising liver function tests and recent pulmonary embolism, and failure to thrive. I believe a HIDA scan would help better differentiate if this is a true biliary issue or if there is an external component. I had an extensive discussion with him and his family about how high risk surgery is due to the recent pulmonary embolism, previous surgeries, failure to thrive and that this may not control his symptoms. We will await the results of the HIDA scan to make steps from there. His INR is elevated despite being off anticoagulation. /[id number]/MODL MTDD
--- NOTE | 2017-11-05 11:08 | WOCRNPDOC ---
WOCRN Advanced Assessment Note - Skin Integrity Problem, Advanced Assess Coccyx Pressure Injury Dressing Type: Allevyn Life Dressing Description: Clean/Dry, Intact Exudate Amount: None Integumentary Issue Intervention: Dressing Changed Aracely Wound Tissue: Erythema, Non-blanching, Painful/Tender Aracely Wound Swelling: None Wound Bed Color: Yellow Wound Bed Constitution: Adhered Slough Wound Edges: Not Attached Site Measurement - Head-to-Toe Length X Width X Depth (cm): 0.6x0.2x0.2 Pressure Injury Stage: Unstageable Pressure Injury Present on Admit: Yes Skin Integrity Problem Comment: Removed dressing and cleaned with ns. Honey gel applied to wound bed and covered with mepilex border sacral dressing. Wound is largely unchanged since previous assessment although it is more painful. The aracely wound erythema has expanded however. Discussed pressure injury prevention and treatment at length with the family. Difficulty is that patient's back is uncomfortable which makes turns side to side difficult for him to tolerate. Explained that side to side turns with the HOB down flatter is going to help the patient heal the most. Leida ROMERO in room for care. Wound care will round again next week.
--- NOTE | 2017-11-05 13:51 | SOAPPROG ---
[facility] Progress Note Assessment/Plan: Assessment: E&M colon cancer * Stage IV colon cancer, KRAS wt, NRAS wt, BRAF mut, UGT1A1 heterozygous: last folfiri + avastin was 10/08. I suspect most of his problem is due to progression of the cancer as CT prior to this therapy showed new ascites and slight increase in a few nodes. He is clinically deteriorating. His ECOG PS is 4 and is not likely to improve. * Malignant ascites - He felt much better after drainage of fluid yesterday. He is amenable to Taras drain placement. * Jaundice and elevated LFT: biliary obs I suspect probably from cancer but nothing obvious. GI consultation appreciated. Patient and would like to attempt and ERCP to relieve obstruction if possible. He will need correction of his coagulopathy before the procedure. * Recent Pulmonary embolism within the past several weeks: current INR is supratherapeutic despite holding coumadin. He will need FFP/vitamin K for reversal. * Severe protein calorie malnutrition. recommended against TPN * Oral and possible esophageal thrush: will give a dose of diflucan. Unclear how often can safely repeat with liver dysfunction. If a lot better, may not need to. I had a long discussion with the patient and his assembled family today. I feel that we are at the point of diminishing returns as far as aggressive intervention is concerned. I think that the patient will be best served by placing a one way indwelling catheter into his abdomen to allow for drainage of his ascites at home and to look at discharge tomorrow with hospice. Will also try to use liquid roxanol for pain control. Plan: - ask IR to place an indewlling catheter into the abdominal cavity to allow for paracentesis at home - Hospice consult - Roxanol - Hope to D/C to home with Hospice tomorrow Subjective: Patient wants to go home. He is much more comfortable today. He is aware that his prognosis is terminal. Objective: Vital Signs Temp Pulse Resp BP Pulse Ox 36.6 C 114 H 25 H 129/85 H 91 L 11/05/17 11:35 11/05/17 11:35 11/05/17 11:35 11/05/17 11:35 11/05/17 11:35 Microbiology 11/04/17 14:45 Gram Stain - Final Abdomen - Aspirate 10/30/17 13:45 Blood Culture - Final Blood 10/30/17 12:40 Blood Culture - Final Blood Laboratory Results 11/04/17 16:41 11/05/17 06:23 11/03/17 11/04/17 11/05/17 23:59 23:59 23:59 Intake Total 2422 2191 550 Output Total 250 450 Balance 2172 2191 100 PT 16.2 SEC (12.0-15.0) H 11/04/17 16:41 INR 1.28 (0.83-1.16) H 11/04/17 16:41 Physical Exam - Physical Exam General Appearance: mild distress EENT: scleral icterus (R), scleral icterus (L) Abdomen: distended Skin: jaundice ICD10 Worksheet Patient Problems: Problems Problem Status Onset Colon cancer Acute Dehydration Acute Generalized weakness Acute Globus sensation Acute Nausea and vomiting Acute Shortness of breath Acute
--- NOTE | 2017-11-05 15:42 | ASMTCMCOM ---
CM Note CM Note Notes: Dr Pantoja met with pt and his Vaishnavi today to discuss getting a bruce drain and discharging with [facility]. Met with pt's who is in agreement with plan but wanted to verify that they can manage the bruce drain and can give pt IV fluids if needed. Spoke with Sailaja in intake at [facility] who will have a nurse call back to answer questions. They will also discuss with family the DME needed. Faxed over a referral. Pt will ikely DC Friday to delay of drain placement and need to get DME in place. Date Signed: 11/05/2017 03:41 PM Electronically Signed By:Savanna Valdez LCSW
[2017-11-05] MEDS ORDERED: NALOXONE HCL 0.4 MG/ML INJ IVP PRN (15:50)
[2017-11-05] MEDS ORDERED: fentaNYL 100 MCG/2 ML INJ IVP PRN (15:50)
[2017-11-05] MEDS ORDERED: MIDAZOLAM 2 MG/2 ML VIAL IVP PRN (15:50)
[2017-11-05] MEDS ORDERED: FLUMAZENIL 0.5 MG/5 ML MDV IVP PRN (15:50)
[2017-11-05] MEDS ORDERED: NS 1,000 ML IV SCH (16:00)
--- NOTE | 2017-11-05 18:14 | HOSPPROG ---
Hospitalist Progress Note Assessment/Plan: DIAGNOSES: # right upper quadrant abdominal pain, appears most likely due to malignant ascites, and is markedly better after paracentesis done November 04 -anticipate ongoing reaccumulation so plan is for a K[place] drain to be placed November 06 # rising bilirubin, question of obstruction versus cholestasis not entirely clarified by imaging studies; at this time point after extensive discussion with Dr. Barron, Dr. Fahad Tomas, Dr. Agarwal it is felt to be very unlikely that a percutaneous drainage effort would be tolerated or helpful. Attempt to do ERCP failed due to inability to cannulate common duct; no further interventions planned at this time # persistent sinus tachycardia present since admission, unclear if this is related to his biliary disease, his recent PEs, or otherwise. -there has been no fever, he is not bleeding, probably multifactorial etiology, renal function stable, no improvement with antibiotic # recent pulmonary emboli, anticoagulation currently held however INR continuing to rise 4.6 today -currently on IV heparin with impending procedures, plan discharge on Lovenox # metastatic colon cancer PLANS: -continue pain management and supportive care -Kasson drain tomorrow in Interventional Radiology -resume Lovenox after that procedure -after extensive discussion with patient and family that they have chosen palliative care beyond this hospitalization I reviewed in detail with Dr. Stanley Pantoja today SUBJECTIVE: Feels notably better today and did get up and walk in the hallway last night after his paracentesis Seeding poorly No nausea or vomiting OBJECTIVE Vitals reviewed: Remains tachycardic, vitals stable otherwise without fever Exam: alert oriented seems more comfortable today tells a couple jokes during my visit skin warm dry color ok resps not labored lungs clear BSs heart regular abd notably less distended with no palpable ascites, less tender limbs warm, no edema iv site ok Objective: Vital Signs Temp Pulse Resp BP Pulse Ox 36.5 C 113 H 26 H 133/87 H 94 11/05/17 16:00 11/05/17 16:00 11/05/17 16:00 11/05/17 16:00 11/05/17 16:00 Microbiology 11/04/17 14:45 Gram Stain - Final Abdomen - Aspirate 10/30/17 13:45 Blood Culture - Final Blood 10/30/17 12:40 Blood Culture - Final Blood Laboratory Results 11/04/17 16:41 11/05/17 06:23 11/04/17 11/05/17 11/06/17 06:59 06:59 06:59 Intake Total 2540 1481 Output Total 450 Balance 2540 1031 PT 16.2 SEC (12.0-15.0) H 11/04/17 16:41 INR 1.28 (0.83-1.16) H 11/04/17 16:41 ICD10 Worksheet Patient Problems: Problems Problem Status Onset Colon cancer Acute Dehydration Acute Generalized weakness Acute Globus sensation Acute Nausea and vomiting Acute Shortness of breath Acute
[2017-11-05] MEDS: HEPARIN/DEXTROSE 500 ML IV SCH (19:15)
[2017-11-05] MEDS: TAMSULOSIN HCL 0.4 MG CAP PO SCH (21:49)
[2017-11-05] MEDS: morphINE 10 MG/0.5 ML UDSYR PO PRN (21:49)
[2017-11-06] MEDS: HEPARIN 10,000 UNIT/10 ML MDV IVP PRN (00:09)
[2017-11-06] MEDS: NYSTATIN SUSP 500000 UNIT/5 ML UDCUP PO SCH ×4 (05:39→20:56)
[2017-11-06] MEDS: ONDANSETRON 4 MG/2 ML VIAL IVP PRN (09:07)
[2017-11-06] MEDS: morphINE 10 MG/0.5 ML UDSYR PO PRN ×2 (09:08→22:07)
[2017-11-06] MEDS: ERTAPENEM 1 GM VIAL IVP SCH (09:08)
[2017-11-06] MEDS: SENNOSIDES/DOCUSATE SODIUM TAB PO SCH ×2 (09:30→20:56)
[2017-11-06] MEDS: PANTOPRAZOLE SODIUM 40 MG TAB PO SCH (09:31)
--- NOTE | 2017-11-06 12:58 | SOAPPROG ---
SOAP Progress Note Assessment/Plan: Assessment: E&M colon cancer * Stage IV colon cancer, KRAS wt, NRAS wt, BRAF mut, UGT1A1 heterozygous: last folfiri + avastin was 10/08. I suspect most of his problem is due to progression of the cancer as CT prior to this therapy showed new ascites and slight increase in a few nodes. He is clinically deteriorating. His ECOG PS is 4 and is not likely to improve. * Malignant ascites - He felt much better after drainage of fluid yesterday. He is amenable to Taras drain placement. * Jaundice and elevated LFT: I think this is related to progressive CA * Recent Pulmonary embolism within the past several weeks: Will not plan on lovenox or anticoagulation when he goes home with hospice * Severe protein calorie malnutrition - will take our queue from his requests for food and fluids. Family is comfortable with best supportive care/hospice upon discharge. For drain placement later today or tomorrow then D/C. Meeting with hospice today. Plan: - place indwelling peritoneal catheter for palliative drainage of malignant ascites then home with hospice when arrangements are made Subjective: Had morphine. Very somnolent. Objective: Vital Signs Temp Pulse Resp BP Pulse Ox 36.2 C 117 H 21 H 110/75 94 11/06/17 08:52 11/06/17 08:52 11/06/17 08:52 11/06/17 08:52 11/06/17 08:52 Microbiology 11/04/17 14:45 Gram Stain - Final Abdomen - Aspirate Laboratory Results 11/06/17 05:52 11/05/17 06:23 11/04/17 11/05/17 11/06/17 23:59 23:59 23:59 Intake Total 2191 2070 1626 Output Total 450 Balance 2191 1620 1626 PT 16.2 SEC (12.0-15.0) H 11/04/17 16:41 INR 1.28 (0.83-1.16) H 11/04/17 16:41 Physical Exam - Physical Exam General Appearance: obtunded Skin: jaundice ICD10 Worksheet Patient Problems: Problems Problem Status Onset Colon cancer Acute Dehydration Acute Generalized weakness Acute Globus sensation Acute Nausea and vomiting Acute Shortness of breath Acute
[2017-11-06] MEDS: POTASSIUM Cl (KCl) 40 MEQ in D5W 1/2 NS 1,000 ML IV SCH (14:52)
--- NOTE | 2017-11-06 16:29 | SOAPPROG ---
SOAP Progress Note Assessment/Plan: # metastatic colon cancer -now on comfort care/hospice -discussed meds extensively, and also /family questions #right upper quadrant abdominal pain -markedly better after paracentesis done November 04 -anticipate ongoing reaccumulation so plan is for a [place] drain to be placed for palliation prior to discharge home # rising bilirubin, question of obstruction versus cholestasis not entirely clarified by imaging studies -previous extensive discussion between Dr. Barron, Dr. Fahad Tomas, Dr. Agarwal -felt to be very unlikely that a percutaneous drainage effort would be tolerated or helpful. Attempt to do ERCP failed due to inability to cannulate common duct - no further interventions planned at this time, discharging home with hospice tomorrow # persistent sinus tachycardia present since admission, unclear if this is related to biliary disease, recent PEs - probably multifactorial etiology, renal function stable, no improvement with antibiotic-discontinue ABX # recent pulmonary emboli -currently on IV heparin with impending procedure -discussed with re home lovenox use, vs discontinuing as now on hospice/ comfort status -she will discuss with him/family/hospice team I reviewed in detail with Dr. Stanley Pantoja, plan discharge tomorrow with home hospice care. Subjective: somnolent in AM rounds (had morphine), long talk with . PM rounds- lots of family in room, he was awake and denied pain/SOB. Objective: Vital Signs Temp Pulse Resp BP Pulse Ox 97.2 F 117 H 21 H 110/75 94 11/06/17 08:52 11/06/17 08:52 11/06/17 08:52 11/06/17 08:52 11/06/17 08:52 Microbiology 11/04/17 14:45 Gram Stain - Final Abdomen - Aspirate Laboratory Results 11/06/17 05:52 11/05/17 06:23 11/05/17 11/06/17 11/07/17 11:59 11:59 11:59 Intake Total 1481 3146 Output Total 450 Balance 1031 3146 PT 16.2 SEC (12.0-15.0) H 11/04/17 16:41 INR 1.28 (0.83-1.16) H 11/04/17 16:41 - Time Spent With Patient Time Spent With Patient: 45 - Pending Discharge Pending Discharge Within 24 Hours: Yes Pending Discharge Date: 11/07/17 Pending Discharge Time: 11:00 Physical Exam - Physical Exam General Appearance: thin EENT: scleral icterus (R), scleral icterus (L) Respiratory: other (decrease breath sounds throughout but no rhonchi/wheezes/ crackles noted), No respiratory distress Cardiac/Chest: regular rate, rhythm Abdomen: non-tender, distended Neuro/Psych: alert ICD10 Worksheet Patient Problems: Problems Problem Status Onset Colon cancer Acute Dehydration Acute Generalized weakness Acute Globus sensation Acute Nausea and vomiting Acute Shortness of breath Acute
[2017-11-06] MEDS: TAMSULOSIN HCL 0.4 MG CAP PO SCH (20:56)
[2017-11-07] MEDS: morphINE 10 MG/0.5 ML UDSYR PO PRN (01:29)
[2017-11-07] MEDS: POTASSIUM Cl (KCl) 40 MEQ in D5W 1/2 NS 1,000 ML IV SCH (01:37)
[2017-11-07 05:48] VITALS: PULSE 113; O2SAT 95
[2017-11-07] MEDS: NYSTATIN SUSP 500000 UNIT/5 ML UDCUP PO SCH (05:51)
[2017-11-07 06:02] LABS: INR 1.77 (0.83-1.16); PROTIME(PATIENT) 20.7 SEC (12.0-15.0)
[2017-11-07 07:57] VITALS: BP 114/78; RESP 15; TEMP 97.3
--- NOTE | 2017-11-07 13:51 | PDIAF ---
- Diagnosis Code Status: Do Not Resuscitate - Medication Management Discharge Medications: Medications to Continue on Transfer Tamsulosin HCl [Flomax 0.4 MG (*)] 0.4 mg PO HS 07/20/17 [Last Taken 10/28/17] Herbals/Supplements -Info Only 1 ea PO DAILY 10/14/17 [Last Taken Unknown] Pantoprazole Sodium [Protonix 40mg (*)] 40 mg PO DAILY #30 tab 10/23/17 [Last Taken 10/29/17] Prochlorperazine Maleate [Compazine 25mg supp (*)] 25 mg [place] DAILY PRN 10/29/17 [ Last Taken 10/29/17] diphenhydrAMINE [Benadryl 25 MG (*)] 25 mg PO HS PRN 10/29/17 [Last Taken ] guaiFENesin [Mucinex 600 MG (*)] 600 mg PO BID PRN 10/29/17 [Last Taken 10/29/17 ] Acetaminophen [Tylenol 325mg (*)] 650 mg PO Q4HRS PRN tab 11/07/17 [Last Taken Unknown] Mbx Soln;Maalox/Diphen/Lido [Maalox/Diphenhydramine/Lido] 5 - 15 ml PO PRN PRN # 1 bottle 11/07/17 [Last Taken Unknown] Ondansetron Odt [Zofran Odt 4 mg (*)] 4 mg PO Q4HRS PRN #30 tab 11/07/17 [Last Taken Unknown] Sennosides/Docusate Sodium [Senokot-S] 1 - 2 tab PO BID #60 tab 11/07/17 [Last Taken Unknown] morphINE [Roxanol 10 mg/0.5 ml oral soln (*)] 2 - 20 mg PO Q2HRS PRN #50 ml [Last Taken Unknown] [employer] [place] Antibiotics: n/a Discharge Medications: Refer to the Discharge Home Medication list for PRN reason. PICC Care - Routine: Yes (has a port- per hospice if using/clearing/removing) - Orders Services needed: Home Care (hospice) Home Care Face to Face: I certify that this patient was under my care and that I had the required [id number] encounter meeting the encounter requirements on the discharge day. My findings support the fact that the patient is homebound as defined in Home Care Face to Face Continued: CMS Chapter 7 Medicare Benefits Manual 30.1.1 , The condition of the patient is such that there exists a normal inability to leave home and consequently, leaving home would require a considerable and taxing effort. Oxygen: as needed for comfort Diet Recommendation: no restrictions on diet Diet Texture: Regular Texture Diet - Follow Up Care Current Providers and Referrals: Annia Engle MD [Primary Care Provider] - (if desired by patient)
--- NOTE | 2017-11-07 14:10 | ASMTCMCOM ---
CM Note CM Note Notes: Pt ready for DC home with hospice today. Pt did not get a [place] drain placed so no add'l supplies needed. [place] will meet with pt and family in their home at 3:00. All final orders faxed. [facility] provided transport at 2:00. Date Signed: 11/07/2017 02:09 PM Electronically Signed By:Savanna Valdez LCSW
--- NOTE | 2017-11-07 14:10 | ASDISCHSUM ---
Discharge Information Plan Status:Hospice-Home Medically Cleared to Leave: Discharge Date: D/C Disposition:Hospice Home ADT D/C Disposition:Hospice Home Projected Discharge Date:11/07/2017 11:00 AM Transportation at D/C: Discharge Delay Reason: Follow-Up Date:11/07/2017 11:00 AM Discharge Slot: Final Diagnosis:Stage IV colon CA, jaundice Placement Information Referral Type:*Hospice Referral ID:[id number] Provider Name:[facility] Address 1:[address] [address] Phone Number: Address 2: Fax Number: [facility] Selection Factors: State:[place] Patient Contact Information Contact Name:VINICIUS Relationship: Address:[address] Work Phone: Dayron:SHAHRAM Alternate Phone: [facility]/Zip Code:[place] [address] Email: Financial Information Financial Class: Primary Plan Desc:MEDICARE OUTPATIENT Primary Plan Number:[id number] Secondary Plan Desc:[employer]/M[employer] SUPPLEMENT Secondary Plan Number:[id number] Assessment Information [facility] CM Progress Note CM Note CM Note Notes: Pt with hx of colon ca admitted for dehydration and FTT. Pt may need a julia. After that he will be put on TPN and may DC with it. Pt is on IV ABX but will likely DC on oral ABX. Pt is current with [facility]. If he needs TPN, an infusion company will be alerted. CM will continue to follow. Date Signed: 10/30/2017 03:49 PM Electronically Signed By:Savanna Valdez LCSW [facility] CM Progress Note CM Note CM Note Notes: Met with Vaishnavi patient's and son-from [place]. They would like information regarding Hospice. This CM had [facility] come for more information. thinks that patient may be in the hospital getting tx's for comfort measures and that he may be returning home by Friday. thinks that when they go home they will be ready for Hospice. Not sure which Hospice goes to [place], where they reside. [place] of someone in [place] who [place] She will let me know today so that we can be prepared for the end of the week discharge. Date Signed: 11/02/2017 02:21 PM Electronically Signed By:Hedy Merchant LCSW [facility] Progress Note CM Note CM Note Notes: Received a call from Trung at [facility] #[phone]. [facility] was on site on Friday, 11/02, to complete an informational meeting with family. Confirmed with Trung [facility] will accept patient given [place] address. Discussed with RN, current plan is to attempt ERCP and stent placement. RN also stated family was pleased with [facility] after informational meeting. At this time, it is undecided if patient and family are for sure ready to proceed with hospice, more tbd. Case Management will follow-up on Friday. Face sheet sent to [facility] via [employer]. Will wait to send further information until receive confirmation from family. Current Plan: TBD, possible Hospice with [facility]. Date Signed: 11/03/2017 03:45 PM Electronically Signed By:An Ladd RN [facility] Progress Note CM Note CM Note Notes: Paracentesis planned with possible drain placement. PT recommending home care. CM did not discuss with them today - pt's has provided all care needs up until now and [facility] They have also discussed possible hospice care with [facility]. [facility] has said they are able to provide care to pt where he lives. Will re-approach as d/c gets closer. Date Signed: 11/04/2017 04:16 PM Electronically Signed By:CISCO Tsai [facility] Progress Note CM Note CM Note Notes: Dr Pantoja met with pt and his Vaishnavi today to discuss getting a taras drain and discharging with [facility]. Met with pt's who is in agreement with plan but wanted to verify that they can manage the taras drain and can give pt IV fluids if needed. Spoke with Sailaja in intake at [facility] who will have a nurse call back to answer questions. They will also discuss with family the DME needed. Faxed over a referral. Pt will ikely DC Friday to delay of drain placement and need to get DME in place. Date Signed: 11/05/2017 03:41 PM Electronically Signed By:Savanna Valdez LCSW [facility] Progress Note CM Note CM Note Notes: Pt ready for DC home with hospice today. Pt did not get a [place] drain placed so no add'l supplies needed. [facility] will meet with pt and family in their home at 3:00. All final orders faxed. [place] provided transport at 2:00. Date Signed: 11/07/2017 02:09 PM Electronically Signed By:Savanna Valdez LCSW Intervention Information Intervention Type:*Incorrect Registration Date of Service:10/30/2017 12:58 PM Patient Type:Observation Staff Member:HEATHER Sharp Susan Hours: Discipline: Severity: Comment:
== END 2017-11-07 14:11 | disposition hospice, home (50) | DRG 444 ==
LOC: OBSVTOIN 16:40 → F1N 18:05
PROVIDERS: ADMIT Internal Medicine; ATTEND Internal Medicine
PROC: 0W9G3ZZ Drainage of Peritoneal Cavity, Percutaneous Approach (ICD-10-PCS; 2017-11-04)
PROC: 0DJ08ZZ Inspection of Upper Intestinal Tract, Via Natural or Artificial Opening Endoscopic (ICD-10-PCS; principal; 2017-11-04 12:00)
DX: K81.9 Cholecystitis, unspecified (principal); E43 Unspecified severe protein-calorie malnutrition; J91.0 Malignant pleural effusion; C18.9 Malignant neoplasm of colon, unspecified; B37.81 Candidal esophagitis; K56.7 Ileus, unspecified; E86.0 Dehydration; R62.7 Adult failure to thrive; R00.0 Tachycardia, unspecified; E78.5 Hyperlipidemia, unspecified; K21.9 Gastro-esophageal reflux disease without esophagitis; R33.9 Retention of urine, unspecified; G47.30 Sleep apnea, unspecified; L89.150 Pressure ulcer of sacral region, unstageable; Z66 Do not resuscitate; Z79.01 Long term (current) use of anticoagulants; Z86.711 Personal history of pulmonary embolism; Z87.891 Personal history of nicotine dependence
CPT/HCPCS: 85520-90; 97110-GP; 97116-GP; 97161-GP; 97165-GO; A9537; G8978-GP-CJ; G8979-GP-CI; G8987-GO-CI; G8988-GO-CI; J1100; J1170; J1335; J1450; J1610; J1642; J1644; J1650; J2370; J2405; J2704; J3010; J3430; Q9961; Q9967